=== PATIENT | female | born 1940 | race African-American/Black ===

== ENCOUNTER 2016-05-18 20:47 | Inpatient (IN) | payer MEDICARE ==
[~2016-05-18] VITALS: Ht 154.9 cm; Wt 69.9 kg
[~2016-05-18 20:47] MED LIST: AUGMENTIN 875-11 TAB PO; CARDURA2 MG PO; CARDURA4 MG PO; COZAAR100 MG PO; K-TAB10 MEQ PO; LASIX20 MG PO; LASIX40 MG PO; LEVAQUIN750 MG PO; MEDROL DOSE PACK4 MG PO; NIFEDICAL30 MG/BOTT PO; NORVASC10 MG PO; POTASSIUM99 M1 PO; PROZAC20 MG PO
[2016-05-18 21:22] LABS: BASOPHILS 0.2 % (0.0-2.0); EOSINOPHILS 0.8 % (0-7); HEMATOCRIT 36.9 % (36.0-48.0); HEMOGLOBIN 11.9 g/dL (12-16); IMMATURE GRANULOCYTES 0.3 % (0-5); MCH 28.2 pg (26.0-34.0); MCHC 32.2 g/dL (31.0-37.0); MCV 87.4 fL (80.0-100.0); MEAN PLATELET VOLUME 10.6 fL (7.4-10.4); NEUTROPHILS 72.7 % (40-80); PLATELET COUNT 244 10x3/uL (130-400); RBC 4.22 10x6/uL (4.00-5.40); RDW 15.7 % (11.5-14.5); WBC 6.1 10x3/uL (4.8-10.8)
[2016-05-18 21:41] LABS: ALKALINE PHOSPHATASE 47 U/L (46-116); ALT (SGPT) 25 U/L (10-68); BILIRUBIN - TOTAL 0.89 mg/dL (0.2-1.3); CALC OSMOLALITY 295 mosm/kg (275-300); CALCIUM 9.7 mg/dL (8.5-10.1); CARBON DIOXIDE 27.2 mmol/L (21.0-32.0); CHLORIDE - SERUM 99 mmol/L (98-107); CREATININE - SERUM 1.9 mg/dL (0.6-1.3); POTASSIUM - SERUM 3.6 mmol/L (3.5-5.1); PROTEIN - SERUM 7.6 g/dL (6.4-8.2); SODIUM 139 mmol/L (136-145); UREA NITROGEN 52 mg/dL (7-18); eGFR NON AFRICAN AMERICAN 27 mL/min (90-120)
[2016-05-18 21:42] LABS: GLUCOSE 168 mg/dL (74-106)
[2016-05-18 21:54] LABS: CKMB 1.6 U/L (0.0-3.6); CREATINE KINASE 46 UL (21-215); PRO BNP 22624 pg/mL (0-125); TROPONIN-I 0.051 ng/mL (0.000-0.060)
[2016-05-19 01:30] VITALS: BP 157/74; BMI 29.1
[2016-05-19 04:00] VITALS: BP 144/73
--- NOTE | 2016-05-19 08:25 | NUR ---
ASSESSMENT PER FLOW SHEET.PT HAS BEEN UP AT BEDSIDE EATING BREAKFAST.SHE IS WITHOUT DISTRESS.02 IS AT 3 LITERS PER NC.SCD'S ORDERED.CALL LIGHT IN REACH.
[2016-05-19 08:36] VITALS: BP 150/81
--- NOTE | 2016-05-19 10:35 | NUR ---
FAMILY AT BEDSIDE.PT REMAINS WITHOUT DISTRESS.
[2016-05-19 12:28] VITALS: BP 145/73
--- NOTE | 2016-05-19 13:36 | NUR ---
Patient Name: MYNOR AGUILAR Admission Status: ER Accout number: [id number] Admission Date: 05-18-2016 : 1940 Admission Diagnosis: Attending: JON Current LOS: 1 Anticipated DC Date: 05-22-2016 Planned Disposition: Home with Home Health Primary Insurance: MEDICARE A & B Discharge Planning Comments: CM MET WITH PATIENT REGARDING D/C NEEDS AND PLANS. PATIENT STATED SHE LIVES WITH HER SPOUSE (ANTHONY). PATIENT STATED HER GRANDSON (SANDY) WILL PICK HER UP AT DISCHARGE. PATIENT HAS NO STEPS OR STAIRS AT HER HOME. PATIENT IS INDEPENDENT WITH HER CARE AND HAS NO DME AT HOME. PATIENTS PCP IS DR. CATHERINE AND PHARMACY IS [facility] [address]. PATIENT IS CURRENT WITH [facility]. CM WILL CONTINUE TO FOLLOW PATIENT WITH D/C NEEDS AND PLANS. PCP DR. DORENE CARRENO ON [facility]- [phone] ANTHONY (SPOUSE) [phone] SANDY (GRANDSON) [phone] Director Of Corporate Sales: Guera Joyce Is the patient Alert and Oriented? Yes 0 * How many steps to enter\exit or inside your home? 0 0 * PCP DR. CATHERINE 0 * Pharmacy [facility] [address] 0 * Preadmission Environment Home with Family 0 * ADLs Independent 0 * Equipment None 0 * List name and contact numbers for known caregivers / representatives who currently or will assist patient after discharge: SANDY JACKSON) [phone] 0 * Community resources currently utilized Home Health 0 * Please name any agencies selected above. [facility] 0 * Additional services required to return to the preadmission environment? Yes 0 * Can the patient safely return to the preadmission environment? Yes 0 * Has this patient been hospitalized within the prior 30 days at any hospital? Yes 0 Grand Total: 0
[2016-05-19 15:14] VITALS: Ht 154.9 cm; Wt 69.9 kg
[2016-05-19 16:45] VITALS: BP 146/90
--- NOTE | 2016-05-19 18:20 | NUR ---
REMAINS WITHOUT NEEDS,WITHOUT DISTRESS.UNCHANGED FROM INITIAL SHIFT ASSESSMENT.CONT PLAN OF CARE
--- NOTE | 2016-05-19 19:52 | NUR ---
ROUNDING COMPLETED AND ASSESSMENT COMPLETED PT LAYING IN BED RECIVING BREATHING TREATMENT AT THIS TIME. RESPERATIONS EVEN AND UNLABORED ON 3LNC LUNG SOUNDS CLEAR BILATERAL LOBES X5 NO DISTRESS OBSERVED OR EXPRESSED AT THIS TIME. IVP SALINE LOCKED AND SWAB CAP INPLACE. BED LOW AND LOCKED CALL LIGHT IN REACH SRX2 BRANCH RETAIL EXECUTIVE AT BEDSIDE OBTANING VITALS WILL MONITOR
[2016-05-19 21:00] VITALS: BP 138/63
[2016-05-20 01:00] VITALS: BP 139/60
[2016-05-20 04:00] VITALS: BP 136/66
--- NOTE | 2016-05-20 07:30 | NUR ---
ASSESSMENT PER FLOW SHEET.PT WITHOUT DISTRESS.SHE HAS BEEN UP IN ROOM THIS AM.DENIES NEEDS.INSTRUCTED CALL LIGHT USE.MONITOR
[2016-05-20 08:00] VITALS: BP 147/72
--- NOTE | 2016-05-20 08:42 | HP ---
PATIENT: MYNOR AGUILAR MEDICAL RECORD: [id number] ACCOUNT: [id number] LOCATION:D.MS Alvarado2 : 42 ADMISSION DATE: 05/18/16 HISTORY AND PHYSICAL EXAMINATION DATE OF ADMISSION: 05/18/2016 CHIEF COMPLAINT: Increased shortness of breath. HISTORY OF PRESENT ILLNESS: A 75-year-old -Bangladeshi female with a history of nonischemic cardiomyopathy who has been having increased shortness of breath over the last few days, but it just really got worse on the night of admission. In the ER, she had increased respiratory rates. Her ABG showed a pH of 7.4, pCO2 of 39, pO2 of 58. The patient thought it was a flareup of her pneumonia. Her proBNP is 22,624. Cardiac enzymes are negative and chest x-ray done showed cardiomegaly with some atelectasis in the lingula. No pneumonia. She is admitted for CHF exacerbation with cardiomyopathy. PAST MEDICAL AND SURGICAL HISTORY: Cardiomyopathy, has been seen by Dr. Moreno here, but apparently going to [facility] right now. She also has a history of hypertension, chronic kidney disease. She sees Dr. Hunter for that. She has a history of asthma and has been seen by Dr. Ramirez. She has had some depression in the past. She has had a bilateral tubal ligation in 1972, cholecystectomy in 1978, hysterectomy in 1993, colostomy in 2005 with takedown later that year, hernia repair, [facility] in June 2007 and another hernia repair in April 2008 at [facility]. She has had a parathyroidectomy on 04/04/[address] Sutherland for hyperparathyroidism. She was admitted almost a month ago with pneumonia. ALLERGIES: SHE IS INTOLERANT OF ALL BETA BLOCKERS, ALSO HYDRALAZINE, FLEXERIL AND GABAPENTIN. HOME MEDICATIONS: Losartan 100 mg once a day, nifedipine 30 mg once a day, Lasix 40 mg twice a day, potassium 10 mEq twice a day. SOCIAL HISTORY: She lives with her . She is a former smoker. Former alcohol user, currently none. She is retired from work. FAMILY HISTORY: Both parents with congestive heart failure. REVIEW OF SYSTEMS: GENERAL: No major weight changes. HEENT: No sinus or allergy problems. RESPIRATORY: Followed by Dr. Ramirez for asthma. CARDIAC: I believe followed at [facility] now. She has had a heart cath that showed no ischemia, but ejection fraction has been as low as 15%. She was admitted to [facility] for CHF exacerbation in March 2016. Her ejection fraction then was approximately 20%. GASTROINTESTINAL: Occasional reflux. GENITOURINARY: No significant problems there. MUSCULOSKELETAL: No significant problems. NEUROLOGIC: No seizures, no migraine headaches. PSYCHIATRIC: No depression or anxiety at this time. PHYSICAL EXAMINATION: GENERAL: She is awake, alert and feels better. She was given IV Lasix in the HISTORY AND PHYSICAL [id number] MYNOR AGUILAR Emergency Room. VITAL SIGNS: Temperature 97.3, pulse 88, respirations 23, blood pressure 150/81. HEENT: Grossly within normal limits. NECK: Supple. No bruits. HEART: Regular rate and rhythm without murmur. LUNGS: A few crackles in the bases bilaterally. ABDOMEN: Soft, nontender. EXTREMITIES: No edema. LABORATORY DATA: ABG showed pH 7.42, pCO2 of 39, pO2 of 58, proBNP elevated at 22,624, troponin 0.051. Sodium 139, potassium 3.6, chloride 99, CO2 of 27.2, BUN 52, creatinine 1.9. LFTs were all normal. CBC with a white count of 6100, hemoglobin 11.9, hematocrit 36.9. Chest x-ray showing cardiomegaly, increased congestive heart failure presentation. ASSESSMENT: 1. Congestive heart failure exacerbation in a patient with known cardiomyopathy. 2. Hypertension. 3. Chronic kidney disease about her baseline. PLAN: I spoke with the patient and her 2 sons at bedside. She states she has been drinking a lot more water recently, but has not had much increase in urinary output. Discussed with her about intake versus output and she states she has a better understanding of this now. We will diurese and hopefully get her out soon. TRANSINT:[id number] Voice Confirmation ID: [id number] DOCUMENT ID: [id number] ANTHONY CATHERINE MD at 0842 CC: [id number] DICTATION DATE: 05/19/16 1330 TELECOMMUNICATIONS FIELD TECHNICIAN: 05/19/16 1406 ADM IN [id number] [place] [address]
--- NOTE | 2016-05-20 08:57 | NUR ---
CM REASSESSMENT NOTE: PATIENT IS DISCHARGING HOME TODAY BY PRIVATE CAR. PATIENT IS CURRENT WITH [facility].
--- NOTE | 2016-05-20 11:04 | NUR ---
DISCHARGE INSTRUCTIONS,STATES UNDERSTANDING.IV DCD CATH INTACT.OFF 02,MONITOR SATS
--- NOTE | 2016-05-20 13:07 | NUR ---
LEFT FLOOR WITH FAMILY FOR TRANSPORT HOME
--- NOTE | 2016-05-22 14:44 | EC ---
PATIENT:MYNOR AGUILAR DATE OF SERVICE: 05/18/16 SEX: F MEDICAL RECORD: [id number] DATE OF : [birth year] LOCATION:Taj[facility] Al[facility]ado AGE OF PATIENT: 75 ADMISSION DATE: 05/18/16 REFERRING PHYSICIAN: INTERPRETING PHYSICIAN: MARIELA BOTELLO MD ECHOCARDIOGRAM REPORT ECHO CHARGES 4 ECHO COMPLETE CLINICAL DIAGNOSIS: CHF ECHOCARDIOGRAPHIC MEASUREMENTS (adult normal given) AC root (d.<3.7cm) 2.8 LV Septum d (<1.2 cm> 1.5 Valve Excursion 1.0 LV Septum (systole) 1.6 Left Atria (s.<4.0cm> 5.8 LVPW d(<1.2cm) 1.2 RV (d.<2.3cm) 2.7 LVPW (sytole) 1.7 LV diastole(<5.6CM) 6.5 MV E-F(>70mm/sec) LV systole 5.0 LVOT Diameter 1.8 MV exc.(>10mm) Est.ejection fraction (50-75%) Pericardial Effusion Y DOPPLER: LVIT A E 195.0 LA RVSP 53.0 LVOT 82.0 AOP1/2T Asc. Ao 152 RVOT 46.0 RA PA 98.0 AV Gradient Peak 9.2 AV Mean 4.6 AV Area 1.2 MV Gradient Peak 15.0 MV Mean 4.6 MV Area COMMENTS: Cardiology Tech: Gaby FRITZOE Pleating Supervisor:Allyson Ashraf TAPE# PACS DATE OF SERVICE: 05/19/2016 Adequate 2D echo, color flow and spectral Doppler, M-mode. LVH is present. LV internal dimensions are dilated. LV is globally hypokinetic with reduced EF. Estimated EF of 20% to 25%. Aortic valve sclerosis without stenosis on Doppler interrogation. The left atrium is dilated at 4.7 cm. Mitral valve shows no prolapse. Moderate MR. Right-sided chamber is grossly normal. Moderate TR. TRANSINT:[id number] Voice Confirmation ID: [id number] DOCUMENT ID: [id number] 05/22/2016 Edited to correct date of service, dmm. ECHOCARDIOGRAM REPORT [id number] MYNOR AGUILAR MARIELA BOTELLO MD at 2767 CC: [id number] DICTATION DATE: 05/20/16 1527 BICYCLE MESSENGER: 05/21/16 0031 DIS IN 05/20/16 [facility] [address] [id number]
== END 2016-05-20 13:08 | disposition home health service (06) | DRG 291 ==
LOC: D.ER 20:47 → D.MS 22:23
PROVIDERS: Emergency Medicine; ADMIT Family Medicine
DX: I13.0 Hypertensive heart and chronic kidney disease with heart failure and stage 1 through stage 4 chronic kidney disease, or unspecified chronic kidney disease (principal); I50.21 Acute systolic (congestive) heart failure; N18.9 Chronic kidney disease, unspecified; I42.0 Dilated cardiomyopathy

== ENCOUNTER 2016-05-25 18:31 | Inpatient (IN) | payer MEDICARE ==
[~2016-05-25] VITALS: Ht 154.9 cm; Wt 68.9 kg
[2016-05-25 19:41] LABS: BASOPHILS 0.2 % (0.0-2.0); EOSINOPHILS 1.8 % (0-7); HEMATOCRIT 37.7 % (36.0-48.0); HEMOGLOBIN 11.6 g/dL (12-16); LYMPHOCYTES 16.2 % (15-50); MCH 27.9 pg (26.0-34.0); MCHC 30.8 g/dL (31.0-37.0); MCV 90.6 fL (80.0-100.0); MEAN PLATELET VOLUME 10.5 fL (7.4-10.4); MONOCYTES 5.3 % (2-11); NEUTROPHILS 76.5 % (40-80); RBC 4.16 10x6/uL (4.00-5.40); WBC 5.6 10x3/uL (4.8-10.8)
[2016-05-25 19:49] LABS: PLATELET COUNT 192 10x3/uL (130-400)
[2016-05-25 20:10] LABS: ALBUMIN 2.6 g/dL (3.4-5.0); BILIRUBIN - TOTAL 0.74 mg/dL (0.2-1.3); CARBON DIOXIDE 31.1 mmol/L (21.0-32.0); PROTEIN - SERUM 4.2 g/dL (6.4-8.2)
[2016-05-25 20:21] LABS: ANION GAP 15.7 mmol/L (8-16); CALCIUM 9.5 mg/dL (8.5-10.1); CREATININE - SERUM 1.8 mg/dL (0.6-1.3); POTASSIUM - SERUM 4.8 mmol/L (3.5-5.1)
--- NOTE | 2016-05-25 23:50 | NUR ---
RECIEVED PT FROM ER, ASSESSMENT, HISTORY AND MED REVIEW COMPLETED, NO ACUTE DISTRESS NOTED, FAMILY IN ROOM, SR'S UP X2, CL IN REACH
[2016-05-26 00:47] VITALS: BP 152/77; BMI 28.7
--- NOTE | 2016-05-26 08:00 | NUR ---
PT AWAKE AND ALERT SITTING UP ON SIDE OF BED NO DISTRESS NOTED VOICES ALL NEEDS TO STAFF PIV NOTED SALINE LOCKED TO RIGHT AC SIDE RAILS UP X 2 CALL ILT ABDIRIZAK
--- NOTE | 2016-05-26 09:00 | NUR ---
LYING IN BED,WITHOUT DISTRESS.DOOR OPEN
[2016-05-26 13:07] VITALS: Ht 154.9 cm; Wt 68.9 kg
--- NOTE | 2016-05-26 14:00 | NUR ---
PT FAMILY AT SIDE NO DISTRESS NOTED AMBULATIN GIN ROOM WITH NO SHORTNESS OF BREATH NOTED WILL MONITOR
--- NOTE | 2016-05-26 18:21 | NUR ---
AMBULATING IN HALLWAY NO DISTRESS NTOED NO SHORTNESS OF BREATH NOTED. WILL CONTINUE TO MONITOR.
[2016-05-26 19:00] VITALS: BP 139/65
--- NOTE | 2016-05-26 20:35 | NUR ---
RECIEVED PT SITTING UP IN BED WATCHING TV, NC IN PLACE, ASSESSMENT COMPLETED, NO ACUTE DISTRESS NOTED, DENIES PAIN OR NEEDS AT THIS TIME, SR'S UP X1, CL IN REACH, WILL MONITOR
--- NOTE | 2016-05-26 23:21 | NUR ---
LASIX GIVEN PER MAR, ROSA ISELA WELL, DENIES PAIN OR NEEDS, NC IN PLACE, CL IN REACH
[2016-05-27] VITALS: BP 138/60
--- NOTE | 2016-05-27 01:03 | NUR ---
RESTING WITH EYES CLOSED, RESP WITH EASE, NO DISTRESS NOTED, CL IN REACH, WILL CONTINUE TO MONITOR
[2016-05-27 04:00] VITALS: BP 125/65
[2016-05-27 05:44] LABS: BASOPHILS 0.2 % (0.0-2.0); EOSINOPHILS 1.4 % (0-7); HEMATOCRIT 32.7 % (36.0-48.0); HEMOGLOBIN 10.1 g/dL (12-16); LYMPHOCYTES 17.1 % (15-50); MCH 27.6 pg (26.0-34.0); MCHC 30.9 g/dL (31.0-37.0); MCV 89.3 fL (80.0-100.0); MEAN PLATELET VOLUME 10.4 fL (7.4-10.4); MONOCYTES 4.6 % (2-11); NEUTROPHILS 76.7 % (40-80); PLATELET COUNT 164 10x3/uL (130-400); RBC 3.66 10x6/uL (4.00-5.40); RDW 15.9 % (11.5-14.5); WBC 4.2 10x3/uL (4.8-10.8)
[2016-05-27 05:55] LABS: ANION GAP 12.8 mmol/L (8-16); CALCIUM 8.8 mg/dL (8.5-10.1); CARBON DIOXIDE 31.6 mmol/L (21.0-32.0); CREATININE - SERUM 1.7 mg/dL (0.6-1.3)
[2016-05-27 05:57] LABS: POTASSIUM - SERUM 3.4 mmol/L (3.5-5.1)
--- NOTE | 2016-05-27 07:00 | NUR ---
REPORT RECIEVED ASSUMED CARE. PATIENT IN BED WITH IV INTACT. NO COMPLAINTS. CALL LIGHT WITHIN REACH.
--- NOTE | 2016-05-27 07:54 | HP ---
PATIENT: MYNOR AGUILAR MEDICAL RECORD: [id number] ACCOUNT: [id number] LOCATION:D.MS Gardiner : 42 ADMISSION DATE: 05/26/16 HISTORY AND PHYSICAL EXAMINATION DATE OF ADMISSION: 05/26/2016. CHIEF COMPLAINT: Increased shortness of breath. HISTORY OF PRESENT ILLNESS: A 75-year-old -Estonian female with a history of nonischemic cardiomyopathy, has been having worsening shortness of breath over the last few days, it got worse, so she came to the ER. Her proBNP is actually much improved from a week ago when it was 22,624. Cardiac enzymes are negative. Chest x-ray shows cardiomegaly with her symptoms, she is admitted for acute systolic on chronic congestive heart failure. PAST MEDICAL AND SURGICAL HISTORY: Nonischemic cardiomyopathy, has been seen by Dr. Moreno in the past that has been going to [facility] more recently. She also has hypertension, chronic kidney disease, see Dr. Hunter for her chronic kidney disease, history of asthma, followed by Dr. Ramirez. She has had a bilateral tubal ligation in 1972. Cholecystectomy in 1978, hysterectomy in 1993, colostomy in 2005 with takedown later that year, hernia repair in June 2007 and another hernia repair in April 2008 ____ at [facility], she had a parathyroidectomy on 04/04/[address] Sutherland for hyperparathyroidism. She has been admitted here over the last few months with pneumonia and CHF exacerbation. HOME MEDICATIONS: Losartan 100 mg once a day, nifedipine 30 mg once a day, Lasix 40 mg twice a day. She has been on potassium 10 mEq twice a day. ALLERGIES: SHE IS INTOLERANT OF ALL BETA BLOCKERS. SOCIAL HISTORY: Lives with her , former smoker, former alcohol user. She is retired. FAMILY HISTORY: Both parents with congestive heart failure. REVIEW OF SYSTEMS: GENERAL: No major weight changes. HEENT: No sinus or allergy problems. RESPIRATORY: Followed by with Dr. Ramirez for asthma. CARDIAC: Has been followed by Dr. Moreno as well as [facility]. She had a heart cath that showed no ischemia, but ejection fraction has been as low as 15%. Her ejection fraction was as high as 25% last year. GASTROINTESTINAL: Occasional reflux. GENITOURINARY: No significant problems there. MUSCULOSKELETAL: No significant problems. NEUROLOGIC: No seizures, no migraine headaches. PSYCHIATRIC: No depression or melancholia. PHYSICAL EXAMINATION: GENERAL: Awake, alert, sitting on side of the bed. She is feeling better after she was given IV Lasix in the Emergency Department. VITAL SIGNS: She is afebrile, heart rate 84, respirations 20, blood pressure is 150/76. HEENT: Grossly within normal limits. HISTORY AND PHYSICAL [id number] PEPPERS,MYNOR ELANE NECK: Supple. No bruits. HEART: Regular rate and rhythm without murmur. LUNGS: Few crackles in the bases bilaterally. ABDOMEN: Soft, nontender. EXTREMITIES: No edema. LABORATORY DATA: She had CBC with a white count of 5600, hemoglobin 11.6, hematocrit 37.7, platelets were normal. Sodium 146, potassium 4.8, chloride 104, CO2 of 31, BUN 46, creatinine 1.8, glucose 123, calcium 9.5. Liver functions are all normal. ProBNP 3541. CK is normal. Albumin 2.6. Chest x-ray showed improving changes of congestive heart failure with mild changes in the left lung base and a small left pleural effusion. This is compared to the previous x-ray on 05/18/2016. ASSESSMENT: 1. Acute systolic congestive heart failure. 2. Nonischemic cardiomyopathy. 3. Hypertension. 4. Chronic kidney disease. 5. Intolerant of beta blockers. PLAN: Diuresed, I discussed who she is going to use for cardiology. It is okay for her to use [facility] if she is going to go to [facility], but when she feels back she wants to come here where she lives, she needs to make a decision who she wants to take care of her heart. Other tests and procedures as warranted. TRANSINT:[id number] Voice Confirmation ID: [id number] DOCUMENT ID: [id number] ANTHONY CATHERINE MD at 0754 CC: [id number] DICTATION DATE: 05/27/1640 ACTIVITIES LEADER: 05/27/16 0149 ADM IN [id number] [place] [address]
[2016-05-27 08:28] VITALS: BP 149/75
[2016-05-27 11:49] VITALS: BP 152/72
--- NOTE | 2016-05-27 15:14 | NUR ---
Patient Name: MYNOR AGUILAR Admission Status: ER Accout number: [id number] Admission Date: 05-26-2016 : 1940 Admission Diagnosis: Attending: JON Current LOS: 1 Anticipated DC Date: 05-30-2016 Planned Disposition: Home with Home Health Primary Insurance: MEDICARE A & B Discharge Planning Comments: CM MET WITH PATIENT REGARDING D/C NEEDS AND PLANS. PATIENT STATED SHE LIVES WITH HER SPOUSE (ANTHONY) AND THEY HAVE ONLY 1 STEP W/O RAIL TO ENTER HOME AND NO STAIRS INSIDE. PATIENT STATED SHE IS INDEPENDENT WITH HER CARE AND HAS NO DME AT HOME. PATIENTS PCP IS DR. CATHERINE AND PHARMACY IS [facility] [address]. PATIENT IS CURRENT WITH [facility]. CM WILL CONTINUE TO FOLLOW PATIENT WITH D/C NEEDS AND PLANS. PCP DR. CATHERINE PHARMACY [facility] ON [address]- [phone] ANTHONY (SPOUSE) [phone] SANDY CHANEL (GRANDSON) [phone] [facility] [phone] Refinery Process Engineer: Guera Joyce Is the patient Alert and Oriented? Yes 0 * How many steps to enter\exit or inside your home? 1 W/RAIL 0 * PCP DR. CATHERINE 0 * Pharmacy [facility] [address] 0 * Preadmission Environment Home with Family 0 * ADLs Independent 0 * Equipment None 0 * List name and contact numbers for known caregivers / representatives who currently or will assist patient after discharge: ANTHONY (SPOUSE) [phone] SANDY CHANEL (GRANDSON) [phone] 0 * Community resources currently utilized Home Health 0 * Please name any agencies selected above. CURRENT WITH [facility] 0 * Additional services required to return to the preadmission environment? Yes 0 * Can the patient safely return to the preadmission environment? Yes 0 * Has this patient been hospitalized within the prior 30 days at any hospital? Yes 0 Grand Total: 0
[2016-05-27 15:45] VITALS: BP 142/64
--- NOTE | 2016-05-27 18:55 | NUR ---
PATIENT IN BED WITH NO COMPLAINTS. IV INTACT. CALL LIGHT WITHIN REACH.
[2016-05-27 19:00] VITALS: BP 137/66
--- NOTE | 2016-05-27 21:30 | NUR ---
ASSESSMENT COMPLETED, NC IN PLACE, DENIES NEEDS, CL IN REACH, WILL MONITOR
--- NOTE | 2016-05-27 22:51 | NUR ---
LASIX GIVEN PER MAR, ROSA ISELA WELL, DENIES NEEDS, CL IN REACH
--- NOTE | 2016-05-28 01:15 | NUR ---
RESTING WITH EYES CLOSED, NC IN PLACE, NO DISTRESS NOTED, CL IN REACH
[2016-05-28 04:00] VITALS: BP 125/64
[2016-05-28 06:18] LABS: ANION GAP 11.5 mmol/L (8-16); CALCIUM 8.7 mg/dL (8.5-10.1); CARBON DIOXIDE 32.1 mmol/L (21.0-32.0); CREATININE - SERUM 1.5 mg/dL (0.6-1.3); POTASSIUM - SERUM 3.6 mmol/L (3.5-5.1)
--- NOTE | 2016-05-28 07:00 | NUR ---
REPORT RECIEVED ASSUMED CARE. PATIENT IN BED WITH IV INTACT. NO COMPLAINTS. CALL LIGHT WITHIN REACH.
[2016-05-28 08:17] VITALS: BP 139/86
--- NOTE | 2016-05-28 10:50 | NUR ---
PATIENT UP AMBULATING AT THIS TIME WITH NURSE. O2 SATS 89 ON ROOM AIR BEFORE WALK. 86 DURING WALK. 93 AFTER WALK ON 1 LITER NC. NOTIFIED CASE MANAGEMENT FOR NEED FOR O2 ON DC. VERBALIZED UNDERSTANDING. NO COMPLAINTS AT THIS TIME. IV INTACT. FAMILY AT BEDSIDE. CALL LIGHT WITHIN REACH.
--- NOTE | 2016-05-28 12:11 | NUR ---
NUTRITION MONITORING & EVAL CHART REVIEWED, PT VISIT. PT TOLERATING AHA DIET. 100% INTAKE MEALS. WILL CONTINUE TO PROVIDE DIET, MONITOR PT PROGRESS. RD FOLLOWING
--- NOTE | 2016-05-28 13:45 | NUR ---
PATIENT SITTING UP IN BED WITH NO COMPLAINTS AT THIS TIME. IV INTACT. NO COMPLAINTS. CALL LIGHT WITHIN REACH.
[2016-05-28 13:55] VITALS: BP 132/69
[2016-05-28 16:05] VITALS: BP 138/81
--- NOTE | 2016-05-28 18:01 | NUR ---
PATIENT SITTING UP IN BED WITH IV INTACT. NO COMPLAINTS. FAMILY AT BEDSIDE. CALL LIGHT WITHIN REACH.
[2016-05-28 21:11] VITALS: BP 147/73
[2016-05-29 04:54] VITALS: BP 136/87
--- NOTE | 2016-05-29 07:20 | NUR ---
WALKING ROUNDS,WITHOUT DISTRESS.DENIES NEEDS.CALL LIGHT IN REACH
[2016-05-29] MEDS ORDERED: FUROSEMIDE40 MG PO (07:55)
--- NOTE | 2016-05-29 08:24 | NUR ---
ASSESSMENT PER FLOW SHEET.PT WITHOUT DISTRESS.UP AT BEDSIDE WAITING ON BREAKFAST.CALL LIGHT IN REACH
--- NOTE | 2016-05-29 09:53 | NUR ---
CM REASSESSMENT NOTE: PATIENT WILL DISCHARGE HOME TODAY WITH [facility] (CURRENT WITH). [facility] WILL SUPPLY HOME O2. PORTABLE WILL BE DELIVERED TO ROOM FOR DISCHARGE.
[2016-05-29 10:05] VITALS: BP 131/74
[2016-05-29 13:08] VITALS: BP 135/79
--- NOTE | 2016-05-29 13:17 | NUR ---
IV DCD WITH CATH INTACT.DISCHARGE INSTRUCTIONS,STATES UNDERSTANDING.WAITING ON RIDE FOR TRANSPORT HOME
--- NOTE | 2016-05-29 13:30 | NUR ---
LEFT FLOOR VIA WHEELCHAIR
== END 2016-05-29 13:30 | disposition home health service (06) | DRG 291 ==
LOC: D.ER 18:31 → OBSVTIME 22:43 → D.MS 22:43
PROVIDERS: Family Medicine; ADMIT Family Medicine
DX: I13.0 Hypertensive heart and chronic kidney disease with heart failure and stage 1 through stage 4 chronic kidney disease, or unspecified chronic kidney disease (principal); I50.23 Acute on chronic systolic (congestive) heart failure; I42.0 Dilated cardiomyopathy; N18.3 Chronic kidney disease, stage 3 (moderate); J45.909 Unspecified asthma, uncomplicated

== ENCOUNTER → 2016-10-03 12:23 | Outpatient (CLI) | payer MEDICARE ==
[2016-05-26 13:07] VITALS: BMI 28.7
[~2016-10-03 12:23] MED LIST changes: +FUROSEMIDE40 MG PO
== END | disposition home or self-care (01) ==
LOC: D.RT 12:23
DX: J45.909 Unspecified asthma, uncomplicated (principal)

== ENCOUNTER 2016-10-08 06:47 | Inpatient (IN) | payer MEDICARE ==
[~2016-10-08] VITALS: Ht 154.9 cm; Wt 94.7 kg
--- NOTE | ~2016-10-08 | EC ---
PATIENT:MYNOR AGUILAR DATE OF SERVICE: 10/08/16 SEX: F MEDICAL RECORD: [id number] DATE OF : [birth year] LOCATION:D. D.211 AGE OF PATIENT: 76 ADMISSION DATE: 10/08/16 REFERRING PHYSICIAN: INTERPRETING PHYSICIAN: SUZANNE MORENO M.D. ECHOCARDIOGRAM REPORT ECHO CHARGES 4 ECHO COMPLETE CLINICAL DIAGNOSIS: CHF / ASSESS FOR PERICARDIAL EFFUSION ECHOCARDIOGRAPHIC MEASUREMENTS (adult normal given) AC root (d.<3.7cm) 3.3 LV Septum d (<1.2 cm> 1.3 Valve Excursion 1.8 LV Septum (systole) 1.4 Left Atria (s.<4.0cm> 4.3 LVPW d(<1.2cm) 1.6 RV (d.<2.3cm) 4.9 LVPW (sytole) 1.7 LV diastole(<5.6CM) 6.5 MV E-F(>70mm/sec) LV systole 4.6 LVOT Diameter 1.2 MV exc.(>10mm) 1.5 Est.ejection fraction (50-75%) Pericardial Effusion Y DOPPLER: LVIT A 154 E LA RVSP 65 LVOT 122 AOP1/2T Asc. Ao 162 RVOT 84 RA PA 124 AV Gradient Peak 10.50 AV Mean 5.08 AV Area 1.3 MV Gradient Peak 14.57 MV Mean 3.71 MV Area COMMENTS: Pest Control Pilot: Arpit SOUSA Off Track Betting Manager:Arpit Moreno TAPE# PACS DATE OF SERVICE: 10/10/2016 REFERRING PHYSICIAN: Dr. Trent. INDICATION: Congestive heart failure. DESCRIPTION: Left ventricle is moderately dilated. There is severe left ventricular dysfunction noted. Estimated ejection fraction is in the order of 25%. Mitral valve is structurally normal. There is moderate regurgitation seen. Left atrium is mildly dilated. The aortic valve is trileaflet. I do not ECHOCARDIOGRAM REPORT [id number] MYNOR AGUILAR see stenosis or regurgitation. Right ventricle is moderately dilated. Tricuspid valve is structurally normal. There is moderate regurgitation noted. Right atrium is mildly dilated. Right ventricular systolic pressure is elevated at 65 mmHg. There is a small pericardial effusion noted. It is not circumferential. There is no evidence of chamber collapse. There is no evidence of any tamponade. IMPRESSION: 1. Severe left ventricular dysfunction with ejection fraction 25%. 2. Moderate mitral regurgitation. 3. Moderate tricuspid regurgitation with elevated pulmonary pressures. TRANSINT:[id number] Voice Confirmation ID: [id number] DOCUMENT ID: [id number] SUZANNE MORENO M.D. CC: [id number] DICTATION DATE: 10/10/16 1240 VERIFICATION CLERK: 10/11/16 0019 ADM IN [facility] [address] [id number]
[2016-10-08 07:10] LABS: BASOPHILS 0.3 % (0-2); EOSINOPHILS 1.5 % (0-7); HEMATOCRIT 39.6 % (36.0-48.0); HEMOGLOBIN 12.7 g/dL (12-16); IMMATURE GRANULOCYTES 0.2 % (0-5); LYMPHOCYTES 7.2 % (15-50); MCH 28.2 pg (26.0-34.0); MCHC 32.1 g/dL (31.0-37.0); MCV 87.8 fL (80.0-100.0); MEAN PLATELET VOLUME 10.5 fL (7.4-10.4); NEUTROPHILS 85.8 % (40-80); RBC 4.51 10x6/uL (4.00-5.40); RDW 16.8 % (11.5-14.5); WBC 9.9 10x3/uL (4.8-10.8)
[2016-10-08 07:17] LABS: PLATELET COUNT 230 10x3/uL (130-400)
[2016-10-08 07:25] LABS: ANION GAP 15.9 mmol/L (8-16); BILIRUBIN - TOTAL 1.67 mg/dL (0.2-1.3); CALCIUM 9.5 mg/dL (8.5-10.1); CARBON DIOXIDE 26.2 mmol/L (21.0-32.0); CREATININE - SERUM 1.9 mg/dL (0.6-1.3); POTASSIUM - SERUM 3.1 mmol/L (3.5-5.1); PROTEIN - SERUM 7.6 g/dL (6.4-8.2)
[2016-10-08] MEDS ORDERED: NIFEDIPINE ER60 MG PO (12:03)
[2016-10-08 14:14] VITALS: BP 148/84
[2016-10-08 14:18] VITALS: BP 148/84
--- NOTE | 2016-10-08 14:44 | NUR ---
Patient Name: MYNOR AGUILAR Admission Status: ER Accout number: [id number] Admission Date: 10-08-2016 : 1940 Admission Diagnosis: Attending: JON Current LOS: 1 Anticipated DC Date: 10-10-2016 Planned Disposition: Home Primary Insurance: MEDICARE A & B Discharge Planning Comments: CM MET WITH PATIENT AND DAUGHTER (JORJE) REGARDING D/C NEEDS AND PLANS. PATIENT STATED SHE LIVES WITH HER (ANTHONY). DAUGHTER STATED SHE WILL DRIVE PATIENT HOME AT DISCHARGE AND IT IS SAFE AND THERE IS 1 STEP W/RAILS TO ENTER HOME AND NO STAIRS INSIDE. PATIENT STATED SHE IS INDEPENDENT WITH HER CARE AND HAS A WALKER, WHEELCHAIR, SHOWER CHAIR, CANE, PORTABLE 02, AND OXYGEN (2L) AT HOME. PATIENTS PCP IS DR. CATHERINE AND PHARMACY IS [facility]. PATIENT HAD [facility] FEW MONTHS BACK AND WOULD USE THEM IF NEEDED. PATIENT STATED SHE DID NOT WANT HOME HEALTH UNLESS DOCTOR SAID. CM WILL CONTINUE TO FOLLOW PATIENT WITH D/C NEEDS AND PLANS. PCP DR. DORENE CARRENO [facility]- [phone] ANTHONY (SPOUSE) [phone] JORJE (DAUGHTER) [phone] Fruit Tester: Guera Joyce Is the patient Alert and Oriented? Yes 0 * How many steps to enter\exit or inside your home? 1 /RAIL 0 * PCP DR. CATHERINE 0 * Pharmacy [facility] 0 * Preadmission Environment Home with Family 0 * ADLs Independent 0 * Equipment Cane Oxygen Shower Chair Walker Wheelchair 0 * Other Equipment PORTABLE O2 PATIENT IS ON 2L 0 * List name and contact numbers for known caregivers / representatives who currently or will assist patient after discharge: ANTHONY () [phone] JORJE (DAUGHTER) [phone] 0 * Community resources currently utilized None 0 * Additional services required to return to the preadmission environment? Yes 0 * Can the patient safely return to the preadmission environment? Yes 0 * Has this patient been hospitalized within the prior 30 days at any hospital? No 0 Grand Total: 0
--- NOTE | 2016-10-08 15:16 | NUR ---
REPORT CALLED TO BHUPENDRA SENIOR
[2016-10-08 15:59] VITALS: BP 154/80
[2016-10-08 17:32] LABS: APPEARANCE CLEAR (CLEAR); BILIRUBIN NEGATIVE (NEGATIVE); COLOR YELLOW (YELLOW); GLUCOSE NEGATIVE (NEGATIVE); KETONE NEGATIVE (NEGATIVE); LEUKOCYTE ESTERASE NEGATIVE (NEGATIVE); NITRITE NEGATIVE (NEGATIVE); PROTEIN TRACE mg/dL (NEGATIVE); UROBILINOGEN NORMAL (NORMAL)
[2016-10-08 20:44] VITALS: BP 134/84
--- NOTE | 2016-10-09 00:15 | NUR ---
PT RESTING WELL, NO CHANGES NOTED IN ASSESSMENT. NO NEEDS VOICED. CALL LIGHT WITHIN REACH. WILL CONT TO MONITOR.
[2016-10-09 03:47] VITALS: BP 148/74
[2016-10-09 05:39] LABS: BASOPHILS 0.5 % (0-2); EOSINOPHILS 5.7 % (0-7); HEMATOCRIT 36.4 % (36.0-48.0); HEMOGLOBIN 11.5 g/dL (12-16); LYMPHOCYTES 18.9 % (15-50); MCH 27.8 pg (26.0-34.0); MCHC 31.6 g/dL (31.0-37.0); MCV 88.1 fL (80.0-100.0); MEAN PLATELET VOLUME 10.7 fL (7.4-10.4); MONOCYTES 5.5 % (2-11); NEUTROPHILS 69.4 % (40-80); PLATELET COUNT 186 10x3/uL (130-400); RBC 4.13 10x6/uL (4.00-5.40); RDW 16.9 % (11.5-14.5)
[2016-10-09 06:12] LABS: ANION GAP 12.7 mmol/L (8-16); CALCIUM 8.4 mg/dL (8.5-10.1); CARBON DIOXIDE 28.7 mmol/L (21.0-32.0); CREATININE - SERUM 1.7 mg/dL (0.6-1.3); POTASSIUM - SERUM 3.4 mmol/L (3.5-5.1)
[2016-10-09 06:17] LABS: WBC 4.2 10x3/uL (4.8-10.8)
[2016-10-09 08:41] VITALS: BP 174/84
--- NOTE | 2016-10-09 11:14 | HP ---
PATIENT: MYNOR AGUILAR MEDICAL RECORD: [id number] ACCOUNT: [id number] LOCATION:[facility] D.2119 : 42 ADMISSION DATE: 10/08/16 HISTORY AND PHYSICAL EXAMINATION DATE OF ADMISSION: 10/08/2016 CHIEF COMPLAINT: Shortness of breath and lower extremity swelling. HISTORY OF PRESENT ILLNESS: This is a 76-year-old -[place] female who has had increased lower extremity edema for the last couple of days ago and was afraid that this was her heart, she did not think it was. She was worried about gout, but she did not have any symptoms of gout. I have told her that as an outpatient, all we could do is increase her Bumex and consider some compression stockings for her edema, but she got worse and came in to the hospital today. Her potassium was little low at 3.1. Her proBNP was 22,935. Chest x-ray showed an enlarged heart, increased pulmonary vasculature, all symptoms suggesting congestive heart failure. She is now admitted and cardiology has seen her already. PAST MEDICAL AND SURGICAL HISTORY: She has hypertension, history of asthma, CHF with several admissions in the last 12 months, hyperparathyroidism; chronic kidney disease, followed by Dr. Hunter; nonischemic cardiomyopathy, followed by Dr. Moreno. PAST SURGICAL HISTORY: She has had tubal ligation, cholecystectomy, hysterectomy, partial colectomy, abdominal hernia, parathyroidectomy. HOME MEDICATIONS: Include vitamin D 2000 units daily, losartan 100 mg daily, nifedipine 60 mg daily, I believe furosemide 2 tabs in the morning and 1 in the afternoon and potassium chloride 10 mEq once a day. ALLERGIES: AMOXICILLIN, APRESOLINE, CARVEDILOL, FLEXERIL, GABAPENTIN, ISOSORBIDE AND SHE CANNOT TAKE ANY BETA-KAREN, THEY HAVE ALL BEEN TRIED. HABITS: She is a former smoker. No history of alcohol or drug use. FAMILY HISTORY: Both parents with congestive heart failure. REVIEW OF SYSTEMS: GENERAL: She has gained some weight due to her lower extremity edema. HEENT: No particular sinus or allergy problems. RESPIRATORY: She has a history of asthma, but it is well controlled. She is on no medicines for that. CARDIAC: See above history with her nonischemic cardiomyopathy, last ejection fraction was around 20% per Dr. Moreno. GASTROINTESTINAL: She has occasional reflux. GENITOURINARY: No significant problems there. MUSCULOSKELETAL: No significant problems there. NEUROLOGIC: No seizures or migraine headaches. PSYCHIATRIC: Denies depression or melancholia. PHYSICAL EXAMINATION: VITAL SIGNS: Temperature 97.3, pulse 95, respirations 20, blood pressure 154/80. O2 sat 93%, she is on 2 L of oxygen. HISTORY AND PHYSICAL [id number] MYNOR AGUILAR HEENT: Grossly within normal limits. NECK: Supple. No JVD or bruit. HEART: Regular rate and rhythm without murmur. LUNGS: With decreased breath sounds in the bases bilaterally. ABDOMEN: Soft, flat, nontender. EXTREMITIES: With 2-3+ edema in the feet and ankles. IMAGING: Chest x-ray shows enlarged heart, increased pulmonary vasculature consistent with CHF. LABORATORY DATA: CBC with a white count of 9900, hemoglobin 12.7. Basic metabolic panel: Potassium 3.1, BUN 45, creatinine 1.9. Liver enzymes are all okay except total bilirubin a little elevated at 1.67, proBNP 22,935. ASSESSMENT: 1. Acute systolic congestive heart failure. 2. History of nonischemic cardiomyopathy, intolerant to beta-blockers. 3. Hypertension. PLAN: We will admit, leannae. Dr. Moreno has already seen the patient. We will repeat echo. He started low-dose dobutamine. He talked to her about a biventricular pacer and considering start trying Entresto for her. Other tests and procedures as warranted. TRANSINT:[id number] Voice Confirmation ID: [id number] DOCUMENT ID: [id number] ANTHONY CATHERINE MD at 1114 CC: [id number] DICTATION DATE: 10/08/16 185 SHANK CARRIER: 10/09/16 0032 ADM IN [facility] [address] [place] [address]
--- NOTE | 2016-10-09 11:55 | NUR ---
RESTS IN BED WITH CALL LIGHT IN REACH. TELEMETRY SR. DAUGHTER AT BS. WILL CONT. PLAN OF CARE.
[2016-10-09 12:41] VITALS: Ht 154.9 cm; Wt 94.7 kg
[2016-10-09 12:54] VITALS: BP 169/82
[2016-10-09 16:20] VITALS: BP 136/74
[2016-10-10] VITALS: BP 140/69
[2016-10-10 04:00] VITALS: BP 162/86
[2016-10-10 06:05] LABS: ANION GAP 13.2 mmol/L (8-16); CALCIUM 8.4 mg/dL (8.5-10.1); CARBON DIOXIDE 30.1 mmol/L (21.0-32.0); CREATININE - SERUM 1.4 mg/dL (0.6-1.3); POTASSIUM - SERUM 3.3 mmol/L (3.5-5.1)
[2016-10-10 06:19] LABS: HEMATOCRIT 36.4 % (36.0-48.0); HEMOGLOBIN 11.3 g/dL (12-16); LYMPHOCYTES 18.7 % (15-50); MCH 27.4 pg (26.0-34.0); MCV 88.3 fL (80.0-100.0); MEAN PLATELET VOLUME 10.1 fL (7.4-10.4); PLATELET COUNT 170 10x3/uL (130-400); RBC 4.12 10x6/uL (4.00-5.40); RDW 17.4 % (11.5-14.5)
[2016-10-10 08:12] VITALS: BP 164/94
[2016-10-10 12:14] VITALS: BP 154/79
[2016-10-10 15:43] VITALS: BP 137/68
[2016-10-10 20:00] VITALS: BP 149/82
[2016-10-11] VITALS: BP 150/88
[2016-10-11 04:00] VITALS: BP 155/79
[2016-10-11 05:38] LABS: BASOPHILS 0.6 % (0-2); HEMATOCRIT 40.5 % (36.0-48.0); HEMOGLOBIN 12.7 g/dL (12-16); IMMATURE GRANULOCYTES 0.2 % (0-5); LYMPHOCYTES 19.1 % (15-50); MCH 28.1 pg (26.0-34.0); MCHC 31.4 g/dL (31.0-37.0); MCV 89.6 fL (80.0-100.0); MEAN PLATELET VOLUME 10.7 fL (7.4-10.4); MONOCYTES 4.4 % (2-11); NEUTROPHILS 67.7 % (40-80); RBC 4.52 10x6/uL (4.00-5.40); WBC 4.8 10x3/uL (4.8-10.8)
[2016-10-11 05:39] LABS: PLATELET COUNT 219 10x3/uL (130-400)
[2016-10-11 06:02] LABS: ANION GAP 13.3 mmol/L (8-16); CALCIUM 8.7 mg/dL (8.5-10.1); CARBON DIOXIDE 30.9 mmol/L (21.0-32.0); CREATININE - SERUM 1.5 mg/dL (0.6-1.3); POTASSIUM - SERUM 3.2 mmol/L (3.5-5.1)
--- NOTE | 2016-10-11 07:56 | NUR ---
ASSESSMENT DONE. DENIES NEEDS.
[2016-10-11 08:00] VITALS: BP 143/81
--- NOTE | 2016-10-11 08:15 | NUR ---
RESP UL ON 02 2L NC. CALL LIGHT IN REACH. WILL CONT. MAGALI OF CARE.
[2016-10-11] MEDS ORDERED: ENTRESTO 24 MG1 EACH PO (09:58)
[2016-10-11 12:00] VITALS: BP 130/64
--- NOTE | 2016-10-11 13:31 | NUR ---
DC GIVEN TO PT
--- NOTE | 2016-10-11 14:27 | NUR ---
DC HOME PER PERSONAL CAR
== END 2016-10-11 14:27 | disposition home or self-care (01) | DRG 291 ==
LOC: D.ER 06:47 → D.M2 13:23 → D.MS 13:23 → D.M2 15:39
PROVIDERS: Emergency Medicine; ADMIT Family Medicine
DX: I13.0 Hypertensive heart and chronic kidney disease with heart failure and stage 1 through stage 4 chronic kidney disease, or unspecified chronic kidney disease (principal); I50.21 Acute systolic (congestive) heart failure; N18.9 Chronic kidney disease, unspecified; E21.3 Hyperparathyroidism, unspecified; Z87.891 Personal history of nicotine dependence; I42.0 Dilated cardiomyopathy

== ENCOUNTER → 2016-10-22 17:44 | Outpatient (CLI) | payer MEDICARE ==
[2016-10-09 12:41] VITALS: BMI 28.1
[~2016-10-22 17:44] MED LIST changes: +ENTRESTO 24 MG1 EACH PO; +NIFEDIPINE ER60 MG PO
[2016-10-22 18:19] LABS: ANION GAP 11.8 mmol/L (8-16); CALCIUM 9.3 mg/dL (8.5-10.1); CARBON DIOXIDE 33.3 mmol/L (21.0-32.0); CREATININE - SERUM 1.7 mg/dL (0.6-1.3); POTASSIUM - SERUM 4.1 mmol/L (3.5-5.1)
== END | disposition home or self-care (01) ==
LOC: D.LABREF 17:44
PROVIDERS: Internal Medicine Cardiovascular Disease
DX: I50.9 Heart failure, unspecified (principal)

== ENCOUNTER → 2016-11-13 12:28 | Outpatient (CLI) | payer MEDICARE ==
[2016-10-09 12:41] VITALS: BMI 28.1
== END | disposition home or self-care (01) ==
LOC: D.RT 12:28
DX: J44.9 Chronic obstructive pulmonary disease, unspecified (principal)

== ENCOUNTER 2016-12-13 05:24 | Inpatient (IN) | payer MEDICARE ==
[~2016-12-13] VITALS: Ht 154.9 cm; Wt 63.8 kg
[2016-12-13 05:56] LABS: BASOPHILS 0.2 % (0-2); EOSINOPHILS 1.1 % (0-7); HEMATOCRIT 37.3 % (36.0-48.0); IMMATURE GRANULOCYTES 0.2 % (0-5); LYMPHOCYTES 17.4 % (15-50); MCH 28.3 pg (26.0-34.0); MCHC 32.2 g/dL (31.0-37.0); MEAN PLATELET VOLUME 10.1 fL (7.4-10.4); MONOCYTES 4.2 % (2-11); NEUTROPHILS 76.9 % (40-80); PLATELET COUNT 191 10x3/uL (130-400); RBC 4.24 10x6/uL (4.00-5.40); RDW 16.8 % (11.5-14.5); WBC 4.7 10x3/uL (4.8-10.8)
[2016-12-13 06:13] LABS: ALBUMIN 3.8 g/dL (3.4-5.0); ANION GAP 17.7 mmol/L (8-16); BILIRUBIN - TOTAL 1.26 mg/dL (0.2-1.3); CALCIUM 8.9 mg/dL (8.5-10.1); CARBON DIOXIDE 24.3 mmol/L (21.0-32.0); CREATININE - SERUM 2.4 mg/dL (0.6-1.3); PROTEIN - SERUM 7.4 g/dL (6.4-8.2)
--- NOTE | 2016-12-13 07:54 | NUR ---
RECEIVED REPORT FROM JOSE IN ER. PATIENT TO UNIT SOON.
[2016-12-13] MEDS ORDERED: KLOR-CON 1010 MEQ PO (08:19)
[2016-12-13] MEDS ORDERED: ENTRESTO 24 MG1 EACH PO (08:22)
--- NOTE | 2016-12-13 08:32 | NUR ---
RECEIVED VIA STRETCHER FROM THE ED, ON 3L PER NC. SALINE LOCK SEEN TO RIGHT AC. YELLOW ARMBAND AND NON SKID SOCKS ARE PLACED ON PATIENT. 2-3 + SEEN TO FEET WILL ADMIT.
[2016-12-13 10:04] VITALS: BP 171/96; BMI 27.6
--- NOTE | 2016-12-13 10:22 | NUR ---
SCDS APPLIED TO BILATERAL LOWER EXTREMITIES.
[2016-12-13 11:53] VITALS: BP 151/76
[2016-12-13 12:09] VITALS: Ht 154.9 cm; Wt 63.8 kg
--- NOTE | 2016-12-13 13:51 | NUR ---
DOBUTAMINE GTT STARTED AT 5MCG/KG/MIN AT THIS TIME. SITTING UP IN BED. NO DISTRESS.
[2016-12-13 16:00] VITALS: BP 173/69
--- NOTE | 2016-12-13 18:30 | NUR ---
PATIENT RESTING IN BED WITH EYES CLOSED, EASILY AROUSED. PATIENT STATES SHE FEELS SO MUCH BETTER NOW THAT SOME OF THE FLUID IS FINALLY COMING OFF. NO DISTRESS.
[2016-12-13 20:00] VITALS: BP 156/77
--- NOTE | 2016-12-13 21:58 | HP ---
PATIENT: MYNOR AGUILAR MEDICAL RECORD: [id number] ACCOUNT: [id number] LOCATION:[address] : 42 ADMISSION DATE: 12/13/16 HISTORY AND PHYSICAL EXAMINATION ADMITTING PHYSICIAN: Dr. Jamari Trent. REASON FOR ADMISSION: Shortness of breath and burning in the chest. HISTORY OF PRESENT ILLNESS: The patient states for the last week she has had increasing shortness of breath and leg edema. She had had burning in her chest with cough, nonproductive. She states she called Dr. Hunter's office and the pulmonary office, but had not heard back from them. She recently had a walk test that required 3 liters of nasal O2 to keep her sat above 86%. She also has had PFTs, which showed restrictive lung disease with FEV1 of 0.93% and moderate improvement with bronchodilators to 27%. She states she is not on any updrafts or bronchodilators currently. She states she has got more short of breath and for that reason came to the Emergency Room for admission. She did want to come to the hospital. She does not do daily weights, she states. PAST MEDICAL HISTORY: Systolic congestive heart failure with multiple admissions and last discharge was 10/11/2016, cardiomyopathy, dilated nonischemic essential hypertension, restrictive lung disease, chronic renal insufficiency, hyperparathyroidism. PAST SURGICAL HISTORY: Tubal ligation, cholecystectomy, hysterectomy, partial colectomy, abdominal hernia repair, parathyroidectomy. ALLERGIES: AMOXICILLIN, APRESOLINE, ____, FLEXERIL, GABAPENTIN, BETA BLOCKERS, ISOSORBIDE. SOCIAL HISTORY: Former smoker. No history of alcohol or drug use. FAMILY HISTORY: Both parents with congestive heart failure. REVIEW OF SYSTEMS: GENERAL: Fatigued, no fever. HEENT: No recent new visual change, sinus congestion, sore throat or hearing difficulty. RESPIRATORY: Shortness of breath with minimal exertion or at rest, have to sit up to breathe on 3 pillows. Her chest has been burning, but not had a cough. CARDIAC: No exertional chest pain plus exertional dyspnea. GASTROINTESTINAL: She has had chronic edema and gradually increasing. ENDOCRINE: Denies polyuria, polydipsia, heat or cold intolerance. NEUROLOGIC: No history of stroke, TIA, or vascular headaches. MUSCULOSKELETAL: Denies arthralgias. GYNECOLOGICAL: No vaginal bleeding. GENITOURINARY: Denies dysuria or incontinence. PHYSICAL EXAMINATION: VITAL SIGNS: The patient is alert and oriented with mild tachypnea. Her sats are 90% on 3 liters. Heart rate is 100 and regular, respirations are 22 and blood pressure is 130/80. HEENT: Normocephalic. Eyes are clear. Ears unremarkable. NECK: Supple, without bruits or masses. No JVD. HISTORY AND PHYSICAL [id number] MYNOR AGUILAR CHEST: She has decreased breath sounds in the bases bilaterally. HEART: Tachycardic without murmur. ABDOMEN: Soft and nontender. EXTREMITIES: She has 3+ bipedal and pretibial edema to the knees bilaterally. NEUROLOGICAL: Oriented to person, place, and time. Gait was not tested. No motor deficits are appreciated. LABORATORY DATA: Shows white count of 4700, H&H of 12 and 37.3. BUN is 67, creatinine is 2.4. Potassium is 4.0, glucose 149 nonfasting. Liver functions are normal. ProBNP is 70,549. Cardiac enzymes were negative for acute injury. EKG shows sinus tachycardia, first degree AV block, LAD, poor anterior R waves with T-wave abnormalities laterally. ASSESSMENT: 1. Mfsqu-wl-nbtnowb systolic congestive heart failure. 2. INTOLERANT OF ____. 3. Dilated cardiomyopathy, nonischemic. 4. Restrictive lung disease. 5. Essential hypertension. 6. Remote hyperparathyroidism. PLAN: The patient will be admitted for diuresis. Cardiology consult, potential dobutamine drip. Further workup pending clinical course. TRANSINT:[id number] Voice Confirmation ID: [id number] DOCUMENT ID: [id number] SUZANNE BOB MD at 2158 CC: [id number] DICTATION DATE: 12/13/16 0849 SCALE INSTALLER: 12/13/16 0956 ADM IN [facility] [id number] [place] [id number]
[2016-12-14] VITALS: BP 164/60
[2016-12-14 04:00] VITALS: BP 125/58
[2016-12-14 06:09] LABS: BASOPHILS 0.4 % (0-2); EOSINOPHILS 1.1 % (0-7); HEMATOCRIT 32.1 % (36.0-48.0); HEMOGLOBIN 10.6 g/dL (12-16); IMMATURE GRANULOCYTES 0.2 % (0-5); LYMPHOCYTES 11.2 % (15-50); MCH 28.7 pg (26.0-34.0); MEAN PLATELET VOLUME 11.2 fL (7.4-10.4); MONOCYTES 5.1 % (2-11); PLATELET COUNT 160 10x3/uL (130-400); RBC 3.69 10x6/uL (4.00-5.40); WBC 5.4 10x3/uL (4.8-10.8)
--- NOTE | 2016-12-14 07:00 | NUR ---
RECEIVED REPORT. ASSUMED CARE OF PATIENT. PATIENT SITTING TO SIDE OF BED, VERY CHEERFUL THIS AM. STATES SHE CAN BREATH SO MUCH BETTER AND SLEPT SO GOOD LAST NIGHT SINCE GETTING THIS FLUID OFF. PATIENT DENIES NEEDS AT THIS TIME. CALL LIGHT WITHIN REACH. DOBUTAMINE DRIP INFUSING ORDERED. NO DISTRESS.
[2016-12-14 07:01] LABS: ANION GAP 12.3 mmol/L (8-16); CALCIUM 8.6 mg/dL (8.5-10.1); CARBON DIOXIDE 30.7 mmol/L (21.0-32.0); CREATININE - SERUM 1.8 mg/dL (0.6-1.3)
[2016-12-14 08:34] VITALS: BP 153/66
[2016-12-14 12:04] VITALS: BP 135/60
[2016-12-14 16:00] VITALS: BP 147/62
--- NOTE | 2016-12-14 17:01 | NUR ---
22 GAUGE IV PLACED TO RIGHT HAND X 1 STICK. GOOD BLOOD RETURN, EASY FLUSH. TAPED, DATED AND SECURED. TOLERATED IV PLACEMENT WELL. DOBUTAMINE DRIP INFUSING ORDERED. 20 GAUGE IV REMOVED FROM RIGHT AC, CONTINUOUS LEAKING FROM HUB. CATHETER TIP INTACT. NO BLEEDING FROM SITE. 2X2 GAUZE APPLIED AND SECURED WITH TAPE. NO DISTRESS.
--- NOTE | 2016-12-14 18:54 | NUR ---
LYING IN BED WITH EYES CLOSED. EASILY AROUSED. RESP EVEN AND UNLABORED. DOBUTAMINE INFUSING ORDERED. NO DISTRESS.
--- NOTE | 2016-12-14 20:10 | NUR ---
PT IN BED WITH HOB UP FOR COMFORT. WATCHING TV. ALERT & ORIENTED. TELEMETRY. ELECTROLYTE PROTOCOL. O2 @ 3L VIA N/C. RIGHT HAND DELBUTAMINE @ 10.1ML/HR. SCD'S. UP ADLIB. PT STATES SHE HAS A PAIN LEVEL OF 0/10. BED IN LOWEST POSITION AND CALL LIGHT WITHIN REACH.
[2016-12-14 21:40] VITALS: BP 145/62
--- NOTE | 2016-12-14 23:11 | NUR ---
AWAKE/ALERT AND RESTING IN BED. IV LASIX ADMINISTERED AT THIS TIME. MONITOR AND CPOC.
[2016-12-15] VITALS: BP 145/64
[2016-12-15 06:42] LABS: ANION GAP 9.1 mmol/L (8-16); CALCIUM 8.4 mg/dL (8.5-10.1); CARBON DIOXIDE 35.8 mmol/L (21.0-32.0); CREATININE - SERUM 1.4 mg/dL (0.6-1.3)
[2016-12-15 06:54] LABS: POTASSIUM - SERUM 2.9 mmol/L (3.5-5.1)
--- NOTE | 2016-12-15 07:31 | NUR ---
PATIENT IS SITTING UP ON THE SIDE OF HER BED. PATIENT IS AWAKE, ALERT, AND ORIENTED X4. NO COMPLAINTS OF PAIN AT PRESENT TIME. PATIENT DENIES ANY NEEDS AT PRESENT TIME AND STATES, "I AM JUST WAITING ON BREAKFAST". CALL LIGHT IN PATIENT'S REACH. WILL MONITOR PATIENT.
[2016-12-15 07:34] VITALS: BP 156/74
--- NOTE | 2016-12-15 09:07 | CN ---
PATIENT NAME:MYNOR AGUILAR MEDICAL RECORD: [id number] : 42 LOCATION:D.M2 D.2138 ADMIT DATE: 12/13/16 ACCOUNT: [id number] CONSULTING PHYSICIAN: MARIELA BOTELLO MD REFERRING PHYSICIAN: ANTHONY CATHERINE MD DATE OF CONSULTATION: 12/13/2016 HISTORY OF PRESENT ILLNESS: A 76-year-old lady well known to us with a history of nonischemic cardiomyopathy, EF approximately 20%, has been offered three lead ICD placed in the past; however, she deferred this and has classic volume overload in the past week course, also has a history of chronic renal insufficiency. We are asked to see her concerning her cardiovascular status. PAST MEDICAL HISTORY: Includes: 1. History of hypertension. 2. Nonischemic cardiomyopathy. MEDICATIONS: Typically include Entresto 1 b.i.d., Procardia 60 every day, Lasix 40 every day, potassium supplementation. ALLERGIES: INCLUDE AMOXICILLIN, CARVEDILOL, METOPROLOL, LABETALOL, ISOSORBIDE. SOCIAL HISTORY: , lives here in [place], does try to exercise. She is a nonsmoker. Has been under more stress taking care of her . REVIEW OF SYSTEMS: The patient reports easy bruising but reports no swollen glands. The patient reports no fever, no night sweats, no significant weight gain, no significant weight loss. No significant exercise tolerance. The patient reports no dry eyes, no irritation, no vision change. Patient reports no difficulty hearing and no ear pain. Patient reports no frequent nose bleeds or nose and sinus problems. Patient reports on arm pain on exertion. No shortness of breath while lying down. No history of heart murmur. Patient reports no cough, no wheezing or coughing up blood. Patient reports no abdominal pain, no vomiting. Normal appetite. No diarrhea and not vomiting blood. No nausea and no constipation. Patient reports no incontinence. No difficulty urinating. No hematuria. No increased frequency. Patient reports no muscle aches. No weakness, no arthralgias, no back pain. No swelling of the extremities. Patient reports no abnormal mole, no jaundice, no rashes. Reports no loss of consciousness. No weakness and no numbness. No seizures, dizziness, or headaches. The patient reports no depression, no sleep disturbance, feeling safe in a relationship and no alcohol abuse. Patient reports on fatigue. Reports no runny nose or sinus pressure. No itching, no hives, and no frequent sneezing. PHYSICAL EXAMINATION: GENERAL: Pleasant female in no acute distress. VITAL SIGNS: Blood pressure 131/76, pulse 93, regular. HEENT: Normocephalic, atraumatic. NECK: No JVD or bruit. HEART: Regular. LUNGS: Fair air excursion. ABDOMEN: Soft, nontender. EXTREMITIES: Pulse 2+, 1+ edema. IMPRESSION: Nonischemic cardiomyopathy with volume overload. Has responded CONSULT REPORT [id number] MYNOR AGUILAR previously nicely the Dobutrex drip. We will go ahead and start this. Has been responded as well as Dr. Moreno had hoped to the Entresto. At this point in time, she might consider 3 lead pacemaker for therapeutic purposes, but without defibrillator. Further recommendations based on clinical course. TRANSINT:[id number] Voice Confirmation ID: [id number] DOCUMENT ID: [id number] MARIELA BOTLELO MD at 0907 CC: [id number] DICTATION DATE: 12/13/16 1409 GROCERY STORE CLERK: 12/13/16 7405 ADM IN [place] [facility] [id number] [place] [address]
[2016-12-15 11:50] VITALS: BP 126/56
--- NOTE | 2016-12-15 13:29 | NUR ---
Nutrition follow-up: Diet: Low sodium PO intake 100% of last 3 meals Labs reviewed RDN visited with pt during meal rounds. Pt is very happy with meals; pt states she eats in our cafeteria for lunch a lot. Pt with improving appetite. +BM RDN following.
[2016-12-15 15:31] VITALS: BP 133/67
--- NOTE | 2016-12-15 19:53 | NUR ---
PT LYING IN BED WITH HOB UP FOR COMFORT. WATCHING TV.ALERT & ORIENTED. TELEMETRY. DAILY WEIGHT. STRICT I & O. PT STATES SHE HAS A PAIN LEVEL 0/10. O2 @ 3L VIA N/C. RIGHT HAND DELBUTAMINE @ 10ML/HR. BED IN LOWEST POSITION AND CALL LIGHT WITHIN REAH.
--- NOTE | 2016-12-15 19:56 | NUR ---
PT STATES, "MY THROAT FEELS ASHY, I HOPE IM NOT GETTING A VIRUS." I ASKED IF PT WOULD LIKE AN ICE CREAM AND PT STATED SHE WOULD LIKE A CUP OF ICE.
[2016-12-15 20:59] VITALS: BP 146/67
[2016-12-16 01:20] VITALS: BP 128/75
--- NOTE | 2016-12-16 01:50 | NUR ---
PT LYING IN BED. EYES CLOSED. CHEST RISING AND FALLING. BED IN LOWEST POSITION AND CALL LIGHT WITHIN REACH.
--- NOTE | 2016-12-16 03:02 | NUR ---
PT RESTING IN BED WITH NO DISTRESS. RESPS EVEN/NONLABORED. CPOC.
[2016-12-16 05:04] VITALS: BP 138/69
--- NOTE | 2016-12-16 07:35 | NUR ---
INTRODUCED MYSELF TO PT PRIMARY RN FOR TODAYS SHIFT. PT IS A&O RESTING QUIETLY IN BED WAITING ON BREAKFAST. SHIFT ASSESSMENT COMPLETED. PT HAS R.HAND PIV WITH DOBUTAMINE DRIP INFUSING @10.1ML/HR. DRSG CDI AND SWAB CAPS IN USE. RR NONLABORED WITH NC @3L IN PLACE. LUNGS CTA. PT IS HOPING TO BE DISCHARGED TODAY. PT DENIES ANY CURRENT PAIN OR FURTHER NEEDS AT THIS TIME. CL IN REACH, BED IN LOWEST, SIDE RAILS X2. WILL CPOC.
[2016-12-16 08:12] VITALS: BP 149/79
[2016-12-16 09:39] LABS: ANION GAP 10.3 mmol/L (8-16); CARBON DIOXIDE 37.1 mmol/L (21.0-32.0); CREATININE - SERUM 1.4 mg/dL (0.6-1.3)
[2016-12-16 09:44] LABS: POTASSIUM - SERUM 3.4 mmol/L (3.5-5.1)
[2016-12-16 11:47] VITALS: BP 129/57
--- NOTE | 2016-12-16 14:25 | NUR ---
DECREASED PTS DOBUTAMINE DRIP TO 9.6ML/HR BASED OFF OF PTS NEW RECORDED STANDING WEIGHT OF 64KG. PT RESTING WATCHING TV IN BED AND DENIES ANY CURRENT PAIN OR NEEDS, WISHING SHE CAN BE DISCHARGED BUT VERBALIZED UNDERSTANDING. PT CL IN REACH, BED IN LOWEST, SIDE RAILS X2. WILL CPOC.
[2016-12-16 15:54] VITALS: BP 110/65
--- NOTE | 2016-12-16 17:00 | NUR ---
PT FINISHED EATING LUNCH AND STATED THANKS. PT LYING IN BED RESTING QUIETLY AND STATES SHE IS COMFORTABLE. PT IS JUST HOPING TO BE DISCHARGED TOMORROW. DOBUTAMINE DRIP STILL INFUSING WITHOUT ANY ISSUES. DRSG CDI AND SWAB CAPS IN USE. CL IN REACH, BED IN LOWEST, SIDE RAILS X2, NO FURTHER NEEDS AT THIS TIME. WILL CPOC.
--- NOTE | 2016-12-16 19:25 | NUR ---
ALERT/AWAKE WATCHING TV. DENIES PAIN OR ANY NEEDS. IV IN RT HAND WITH DOBUTAMINE INFUSING AT 9.6ML/HR. TELEMETRY SHOWS [address], BBB. ASSESSMENTS COMPLETED. ORIENTED TO CALL LIGHT FOR ANY NEEDS.
[2016-12-16 20:39] VITALS: BP 140/77
--- NOTE | 2016-12-16 21:50 | NUR ---
ADMIN SCHED MEDS AND LASIX IV. REQUESTED LIGHTS OFF AND DOOR CLOSED.
[2016-12-17 00:07] VITALS: BP 131/68
--- NOTE | 2016-12-17 03:30 | NUR ---
PRINTING ENGINEER PRESENT IN ROOM TAKING VS. DENIES PAIN OR ANY NEEDS.
[2016-12-17 05:12] VITALS: BP 127/62
--- NOTE | 2016-12-17 06:55 | NUR ---
IV INFILTRATED. REMOVED AND PLACED WARM PACK FOR SWELLING AND PAIN. UNSUCCESSFUL AT RESITING X 2. WILL SEE IF ANOTHER NURSE CAN RESITE ANOTHER IV.
--- NOTE | 2016-12-17 07:45 | NUR ---
AM ROUNDS COMPLETED. PT IS SITTING UP IN BED A&O RESTING QUIETLY IN BED. PT IS SUPPOSE TO BE DISCHARGED LATER TODAY. PTS PIV HAD INFILTRATED AND SHE IS NOT WANTING ANOTHER STICK R/T DISCHARGE. WILL CHECK CHART AND NOTES AND SEE ABOUT DISCHARGING HER. PT VOICED THANKS AND DENIES ANY CURRENT PAIN OR FURTHER NEEDS AT THIS TIME. CL IN REACH, BED IN LOWEST, SIDE RAILS X2. WILL CPOC.
[2016-12-17 09:40] VITALS: BP 140/70
--- NOTE | 2016-12-17 10:02 | NUR ---
PT WILL BE DISCHARGED SHORTLY. PROVIDED HER WITH HER MORNING DOSE OF LASIX R/T HER PIV INFILTRATED WITH NIGHTSHIFT NURSE AND UNABLE TO RECIEVE HER IV LASIX.
[2016-12-17] MEDS ORDERED: ENTRESTO 24 MG1 EACH PO (12:38)
--- NOTE | 2016-12-17 12:51 | NUR ---
DISCHARGE TEACHING COMPLETED AND PT VERABLIZED UNDERSTANDING AND REC'D HER COPIES. BELONGINGS COLLECTED AND BAGGED FOR PT. PTS SON AT BEDSIDE FOR TRANSPORTATION, NOW AWAITING W/C AND PT WILL BE BROUGHT TO LOBBY. NO FURTHER NEEDS OR QUESTIONS OR CONCERNS.
--- NOTE | 2016-12-17 14:54 | NUR ---
Patient Name: MYNOR AGUILAR Admission Status: ER Accout number: [id number] Admission Date: 12-13-2016 : 1940 Admission Diagnosis:SHORTNESS OF BREATH Attending: JON Current LOS: 4 Anticipated DC Date: 12-17-2016 Planned Disposition: Home Primary Insurance: MEDICARE A & B Discharge Planning Comments: * Is the patient Alert and Oriented? Yes 0 * How many steps to enter\exit or inside your home? 1 W/RAIL 0 * PCP DR. CATHERINE 0 * Pharmacy [facility] ON [address] 0 * Preadmission Environment Home with Family 0 * ADLs Independent 0 * Equipment Cane Oxygen Shower Chair Walker Wheelchair 0 * Other Equipment HOME AND PORTABLE OXYGEN [facility] - MEDICAL EQUIPMENT PROVIDER PREFERENCE 0 * List name and contact numbers for known caregivers / representatives who currently or will assist patient after discharge: JORJE, DAUGHTER, SANDY VERA, GRANDSON, ANTHONY AGUILAR, SPOUSE, 0 * Community resources currently utilized None 0 * Please name any agencies selected above. NONE 0 * Additional services required to return to the preadmission environment? No 0 * Can the patient safely return to the preadmission environment? Yes 0 * Has this patient been hospitalized within the prior 30 days at any hospital? No 0 CM MET WITH PT IN ROOM TO DISCUSS DISCHARGE PLANNING AND NEEDS. PT REPORTS LIVING AT HOME INDEPENDENTLY WITH SPOUSE AND GRANDSON. PT REPORTS HAVING ALL NEEDED MEDICAL EQUIPMENT FROM [facility] AND NO OUTSIDE SERVICES ASSISTING IN THE HOME. PT'S GRANDSON ASSISTS WITH TRANSPORTATION NEEDED. CM DISCUSSED AVAILABILITY OF HOME HEALTH, REHAB SERVICES AND MEDICAL EQUIPMENT. PT DENIES DISCHARGE NEEDS, REPORTS HER GRANDSON WILL PICK HER UP FOR DISCHARGE HOME. IMPORTANT MESSAGE FROM MEDICARE PROVIDED AND EXPLAINED. Fitting Room Supervisor: James Amaya
== END 2016-12-17 13:16 | disposition home or self-care (01) | DRG 291 ==
LOC: D.ER 05:24 → D.M2 07:38
PROVIDERS: Emergency Medicine; Family Medicine; ADMIT Family Medicine
DX: I13.0 Hypertensive heart and chronic kidney disease with heart failure and stage 1 through stage 4 chronic kidney disease, or unspecified chronic kidney disease (principal); I50.23 Acute on chronic systolic (congestive) heart failure; N18.3 Chronic kidney disease, stage 3 (moderate); Z87.891 Personal history of nicotine dependence; I42.0 Dilated cardiomyopathy; E87.6 Hypokalemia

== ENCOUNTER 2017-09-18 12:31 | Inpatient (IN) | payer MEDICARE ==
[~2017-09-18] VITALS: Ht 154.9 cm; Wt 62.7 kg
--- NOTE | ~2017-09-18 | HP ---
PATIENT: MYNOR AGUILAR MEDICAL RECORD: [id number] ACCOUNT: [id number] LOCATION:[facility].2107 : 42 ADMISSION DATE: 09/18/17 HISTORY AND PHYSICAL EXAMINATION REASON FOR ADMISSION: Shortness of breath. HISTORY OF PRESENT ILLNESS: The patient is a 77-year-old -Maldiv[place] female followed by Dr. Trent and Dr. Kim through [facility]. She had been on hospice due to nonischemic cardiomyopathy and chronic congestive heart failure. She was scheduled to have a defibrillator placed in January in [place] by Dr. Pulido, but she had a CVA. She was hospitalized there for the CVA on 02/03/2017. She had a large pleural effusion that was drained and a moderate sized pericardial effusion. She was apparently discharged and has been in hospice since that time. The patient states she has been weaker, more short of breath for the last several days. For that reason, her family rescinded her hospice and she was in the Emergency Room for evaluation. She has had edema in both arms and legs. The patient remains a DNR; however. She is being admitted now to try to help with some of the edema, discomfort she is having. PAST MEDICAL HISTORY: Congestive heart failure with EF of 25%, chronic renal insufficiency, history of gallstones, hypertension, recurrent pleural effusion, transudative, ventral hernia, essential hypertension, left hemispheric CVA 2016. Left atrial enlargement at 4.8 cm, severe dilated left ventricular cavity with global hypokinesis, dilated right ventricle, severely dilated left atrium and right atrium, sclerosis of the aortic valve without stenosis, history of bacterial pneumonia, left lower lobe. PAST SURGICAL HISTORY: Colostomy, hysterectomy, colostomy revision and takedown, and tubal ligation. ALLERGIES: COREG, HYDRALAZINE, ISOSORBIDE DINITRATE, AND METOPROLOL. SOCIAL HISTORY: A former smoker, never used oral tobacco, does not use alcohol. She is a Mandaen and defers blood products. FAMILY HISTORY: Parents are , had hypertension. MEDICATIONS: Lasix 80 mg daily, nifedipine 60 mg daily, potassium 10 mEq daily, lorazepam 0.5 p.r.n. anxiety, metolazone 5 mg p.o. Thursday, Thursday and Thursday, ondansetron 4 mg p.r.n., oxycodone 5 mg p.r.n. pain, Prilosec 20 mg a day, diphenhydramine 25 mg p.r.n. REVIEW OF SYSTEMS: GENERAL: Chronic fatigue, increasing shortness of breath and edema. No recent fever. HEENT: No recent visual change, sinus congestion, or sore throat. RESPIRATORY: Chronic shortness of breath gradually worse over the last several weeks. Denies sputum production. CARDIAC: Denies chest pain, but admits to increasing edema in all over extremities, left side worse than right, upper and lower. GASTROINTESTINAL: No nausea, vomiting, change in stools. GENITOURINARY: She has incontinence. GYNECOLOGIC: No vaginal bleeding. ENDOCRINE: Denies polyuria, polydipsia, heat or cold intolerance. HISTORY AND PHYSICAL [id number] MYNOR AGUILAR NEUROLOGIC: Known history of left hemispheric cerebrovascular accident with good recovery of motor and speech. Denies history of seizures. INTEGUMENT: No rash or itching. PSYCHIATRIC: Admits to depressed mood. PHYSICAL EXAMINATION: VITAL SIGNS: Temperature is 99 degrees Fahrenheit orally, pulse 99 and irregular, respirations were 31 and unlabored, blood pressure 163/97 with a sat 94%, on mask 100%. Her height is 5 feet 1 inch, weight 160 pounds or 72.5 kilos. GENERAL: The patient is alert and oriented. HEENT: Eyes are clear. NECK: No bruits appreciated. Positive JVD bilaterally. CHEST: Reveals crackles in the bases bilaterally, left greater than right. HEART: Regular rate with II/ systolic aortic murmur. No diastolic rumble. PMI is displaced laterally in the midclavicular line. IMAGING: Chest x-ray shows cardiomegaly with small bilateral pleural effusions, basilar airspace disease suggestive of CHF. LABORATORY DATA: White count 4000, H&H of 14.6 and 45.7 respectively. Normal diff, electrolytes were normal. BUN and creatinine are 86 and 3.5, glucose is 115. ProBNP is 116,884. ASSESSMENT: 1. Ofxka-dj-lhezxvs systolic congestive heart failure. 2. Ischemic dilated cardiomyopathy. 3. Bilateral pleural effusions. 4. Chronic renal insufficiency. 5. Essential hypertension. 6. Remote cerebrovascular accident. 7. Generalized lymphedema. PLAN: The patient's family has rescinded her hospice status to help with her comfort and peripheral edema. ER note states she is still a DNR by family request. She has been seen by cardiology and they have requested to place the patient on Dobutrex drip to help with congestive failure and edema management. TRANSINT:[id number] Voice Confirmation ID: [id number] DOCUMENT ID: [id number] SUZANNE BOB MD at 0711 CC: [id number] DICTATION DATE: 09/18/17 172 RECEIVING ASSOCIATE STORE: 09/18/17 2201 ADM IN [facility] [address] [place] [address]
--- NOTE | ~2017-09-18 | EC ---
PATIENT:MYNOR AGUILAR DATE OF SERVICE: 09/18/17 SEX: F MEDICAL RECORD: [id number] DATE OF : 42 LOCATION:D.M2 D.210 AGE OF PATIENT: 77 ADMISSION DATE: 09/18/17 REFERRING PHYSICIAN: INTERPRETING PHYSICIAN: ERNIE CHARLES MD ECHOCARDIOGRAM REPORT ECHO CHARGES 4 ECHO COMPLETE Date: 09/18 CLINICAL DIAGNOSIS: CHF ECHOCARDIOGRAPHIC MEASUREMENTS (adult normal given) AC root (d.<3.7cm) 3.1 cm LV Septum d (<1.2 cm> 1.3 cm Valve Excursion 1.9 cm LV Septum (systole) 1.9 cm Left Atria (s.<4.0cm> 4.2 cm LVPW d(<1.2cm) 1.5 cm RV (d.<2.3cm) 3.2 cm LVPW (sytole) 1.7 cm LV diastole(<5.6CM) 6.1 cm MV E-F(>70mm/sec) cm LV systole 5.1 cm LVOT Diameter 1.8 cm MV exc.(>10mm) cm Est.ejection fraction (50-75%) % DOPPLER: LVIT cm/sec A cm/sec E 143 cm/sec LA cm/sec RVSP 85.0 mmHg LVOT 50.0 cm/sec AOP1/2T m/s Asc. Ao 140 cm/sec RVOT 57.0 cm/sec RA cm/sec PA 68.0 cm/sec AV Gradient Peak 7.9 mmHg AV Mean 3.8 mmHg AV Area 0.9 cm MV Gradient Peak 8.9 mmHg MV Mean 3.7 mmHg MV Area cm COMMENTS: Office Services Assistant: Gaby FRITZOE Salvage Supervisor: 1 Dr. Charles TAPE# PACS Pericardial Effusion Y DATE OF SERVICE: 09/18/2017 PROCEDURE: Echocardiogram. FINDINGS: 1. Left ventricular chamber size is dilated. Left ventricular systolic function is markedly reduced, overall ejection fraction 10% to 15%. 2. Left atrium, right atrium, and right ventricle chamber sizes are as well dilated. 3. Valvular structures have normal structure and motion. ECHOCARDIOGRAM REPORT [id number] MYNOR AGUILAR 4. Doppler interrogation reveals moderate to severe mitral regurgitation, moderate to severe tricuspid regurgitation, no other valvular insufficiency or stenosis. Pulmonary systolic pressure is markedly elevated estimated at 85 mmHg. 5. Small pericardial effusion is present. This is not hemodynamically compromising. No evidence of left ventricular thrombus. TRANSINT:[id number] Voice Confirmation ID: [id number] DOCUMENT ID: [id number] ERNIE CHARLES MD at 1629 CC: [id number] DICTATION DATE: 09/19/17 0843 TAPE KELLER OPERATOR: 09/19/17 1152 ADM IN [facility] [address] [place] [id number]
--- NOTE | ~2017-09-18 | CN ---
PATIENT NAME:MYNOR AGUILAR MEDICAL RECORD: [id number] : 44 LOCATION:D.MS Vang2223 ADMIT DATE: 09/18/17 ACCOUNT: [id number] CONSULTING PHYSICIAN: ERNIE HURT MD REFERRING PHYSICIAN: DEMETRIA BRADLEY MD DATE OF CONSULTATION: 09/18/2017 CARDIOLOGY CONSULTATION DIAGNOSES: 1. Congestive heart failure, chronic systolic dysfunction. 2. Cardiomyopathy. 3. Hypertension. 4. Renal insufficiency. 5. Shortness of breath, dyspnea on exertion. 6. Lower extremity edema. HISTORY OF PRESENT ILLNESS: Ms. Aguilar presents with increasing shortness of breath and lower extremity edema. She does have a history of congestive heart failure, chronic systolic dysfunction, and ejection fraction in the 20% range. She also has a history of renal insufficiency. Her creatinine is now in the 3.5 range. PHYSICAL EXAMINATION: GENERAL APPEARANCE: Well-nourished, well-developed, appears stated age. Level of distress, comfortable. PSYCHIATRIC: Mental status, alert, normal affect. Orientation, oriented to time, place and person. EYES: Lids and conjunctiva, noninjected. No discharge, no pallor. ENT: Lips, teeth, gums, normal dentition. Oropharynx, no cyanosis, no pallor. NECK: Carotid arteries, bilateral normal upstroke, no bruits, no thrills. JUGULAR VEINS: No jugular venous pressure or distention. CERVICAL LYMPH NODES: Nontender, nonenlarged. THYROID: Not enlarged. Nontender. No nodules. LUNGS: Respiratory effort, unlabored. CHEST: Normal curvature. No thoracic deformity. No chest wall tenderness. Percussion, resonant. Auscultation, clear. No wheezes, no rales, no rhonchi. CARDIOVASCULAR: Precordial exam, nondisplaced. No heaves or pericardial thrills. Rate and rhythm, regular. Heart sounds, normal S1, normal S2. No S3, no gallop, no rub. Systolic murmur, not heard. Diastolic murmur, not heard. EXTREMITIES: No cyanosis, no edema. Peripheral pulses, full and equal in all extremities, except as noted. No bruits appreciated. ABDOMEN: Soft, nondistended. Normal aorta. No bruit. Nontender. No masses. Liver, nontender, no hepatomegaly. Spleen, nontender, no splenomegaly. MUSCULOSKELETAL: No joint tenderness. No joint swelling. No erythema. NEUROLOGICAL: Normal gait, normal strength, normal tone. SKIN: Warm and dry. REVIEW OF SYSTEMS: The patient reports easy bruising but reports no swollen glands. The patient reports no fever, no night sweats, no significant weight gain, no significant weight loss. No significant exercise tolerance. The patient reports no dry eyes, no irritation, no vision change. Patient reports no difficulty hearing and no ear pain. Patient reports no frequent nose bleeds or nose and sinus problems. Patient reports on arm pain on exertion. No shortness of breath while lying down. No history of heart murmur. Patient CONSULT REPORT [id number] MYNOR AGUILAR reports no cough, no wheezing or coughing up blood. Patient reports no abdominal pain, no vomiting. Normal appetite. No diarrhea and not vomiting blood. No nausea and no constipation. Patient reports no incontinence. No difficulty urinating. No hematuria. No increased frequency. Patient reports no muscle aches. No weakness, no arthralgias, no back pain. No swelling of the extremities. Patient reports no abnormal mole, no jaundice, no rashes. Reports no loss of consciousness. No weakness and no numbness. No seizures, dizziness, or headaches. The patient reports no depression, no sleep disturbance, feeling safe in a relationship and no alcohol abuse. Patient reports on fatigue. Reports no runny nose or sinus pressure. No itching, no hives, and no frequent sneezing. OVERALL IMPRESSION: Decompensated volume overload, congestive heart failure. At this time, we will start her on dobutamine as well as Lasix 80 mg every 8 hours. Hopefully, this will clear her fluid and symptomatology. TRANSINT:[id number] Voice Confirmation ID: [id number] DOCUMENT ID: [id number] ERNIE HURT MD at 1739 CC: [id number] DICTATION DATE: 09/18/17 1544 MANAGER IMAGING: 09/18/17 1608 ADM IN [place] [id number] [place] [address]
[~2017-09-18 12:31] MED LIST changes: +KLOR-CON 1010 MEQ PO
[2017-09-18 13:43] LABS: BASOPHILS 0.4 % (0-2); EOSINOPHILS 0.6 % (0-7); HEMATOCRIT 45.7 % (36.0-48.0); HEMOGLOBIN 14.6 g/dL (12-16); IMMATURE GRANULOCYTES 0.2 % (0-5); LYMPHOCYTES 13.8 % (15-50); MCH 28.4 pg (26.0-34.0); MCHC 31.9 g/dL (31.0-37.0); MCV 88.9 fL (80.0-100.0); MONOCYTES 7.5 % (2-11); NEUTROPHILS 77.5 % (40-80); PLATELET COUNT 129 10x3/uL (130-400); RBC 5.14 10x6/uL (4.00-5.40); RDW 18.7 % (11.5-14.5); WBC 4.6 10x3/uL (4.8-10.8)
[2017-09-18 14:11] LABS: ALBUMIN 3.1 g/dL (3.4-5.0); ANION GAP 14.4 mmol/L (8-16); BILIRUBIN - TOTAL 0.99 mg/dL (0.2-1.3); CALCIUM 8.8 mg/dL (8.5-10.1); CREATININE - SERUM 3.5 mg/dL (0.6-1.3); POTASSIUM - SERUM 4.4 mmol/L (3.5-5.1); PROTEIN - SERUM 7.3 g/dL (6.4-8.2)
[2017-09-18] MEDS ORDERED: LASIX80 MG PO (15:02)
[2017-09-18] MEDS ORDERED: ATIVAN0.5 MG PO (15:03)
[2017-09-18] MEDS ORDERED: METOLAZONE5 MG PO (15:04)
[2017-09-18] MEDS ORDERED: ZOFRAN4 MG PO (15:04)
[2017-09-18] MEDS ORDERED: OMEPRAZOLE20 M1 PO (15:05)
[2017-09-18] MEDS ORDERED: OXYCODONE HCL5 MG PO (15:05)
[2017-09-18] MEDS ORDERED: DIPHEDRYL25 MG PO (15:06)
[2017-09-18 15:12] VITALS: BP 151/83; BMI 34.0
[2017-09-18 16:04] VITALS: BP 157/83
[2017-09-18 20:00] VITALS: BP 171/87
[2017-09-19 01:00] VITALS: BP 157/75
[2017-09-19 05:09] VITALS: BP 166/72
[2017-09-19 05:12] LABS: BASOPHILS 0.2 % (0-2); EOSINOPHILS 0.5 % (0-7); HEMATOCRIT 38.6 % (36.0-48.0); IMMATURE GRANULOCYTES 0.2 % (0-5); LYMPHOCYTES 9.3 % (15-50); MCH 27.6 pg (26.0-34.0); MCHC 31.1 g/dL (31.0-37.0); MCV 88.9 fL (80.0-100.0); MONOCYTES 6.8 % (2-11); PLATELET COUNT 122 10x3/uL (130-400); RBC 4.34 10x6/uL (4.00-5.40); RDW 18.8 % (11.5-14.5); WBC 4.4 10x3/uL (4.8-10.8)
[2017-09-19 05:15] LABS: ANION GAP 10.3 mmol/L (8-16); CALCIUM 8.3 mg/dL (8.5-10.1); CARBON DIOXIDE 33.7 mmol/L (21.0-32.0); CREATININE - SERUM 3.5 mg/dL (0.6-1.3)
[2017-09-19 08:29] VITALS: BP 175/79
[2017-09-19 11:54] VITALS: BP 168/67
[2017-09-19 14:17] VITALS: Ht 154.9 cm; Wt 62.7 kg
[2017-09-19 15:44] VITALS: BP 141/66
[2017-09-19 20:00] VITALS: BP 133/67
[2017-09-20 01:00] VITALS: BP 138/66
[2017-09-20 04:00] VITALS: BP 142/68
[2017-09-20 06:09] LABS: BASOPHILS 0.3 % (0-2); EOSINOPHILS 1.1 % (0-7); HEMOGLOBIN 12.4 g/dL (12-16); LYMPHOCYTES 9.1 % (15-50); MCH 27.8 pg (26.0-34.0); MCHC 31.8 g/dL (31.0-37.0); MCV 87.4 fL (80.0-100.0); MONOCYTES 8.5 % (2-11); PLATELET COUNT 108 10x3/uL (130-400); RBC 4.46 10x6/uL (4.00-5.40); RDW 18.4 % (11.5-14.5); WBC 3.5 10x3/uL (4.8-10.8)
[2017-09-20 06:27] LABS: CALCIUM 8.4 mg/dL (8.5-10.1); CARBON DIOXIDE 35.6 mmol/L (21.0-32.0); POTASSIUM - SERUM 3.6 mmol/L (3.5-5.1)
[2017-09-20 07:54] VITALS: BP 170/74
[2017-09-20 13:46] VITALS: BP 163/70
[2017-09-20 15:29] VITALS: BP 150/82
[2017-09-20 20:00] VITALS: BP 175/59
[2017-09-21 01:00] VITALS: BP 155/89
[2017-09-21 05:00] VITALS: BP 172/72
[2017-09-21 07:00] VITALS: BP 150/83
[2017-09-21 12:00] VITALS: BP 132/65
[2017-09-21 17:14] VITALS: BP 143/69
[2017-09-21 20:36] VITALS: BP 124/64
[2017-09-22] VITALS: BP 159/76
[2017-09-22 05:20] VITALS: BP 147/71
[2017-09-22 06:11] LABS: BASOPHILS 0.2 % (0-2); EOSINOPHILS 0.9 % (0-7); HEMATOCRIT 39.7 % (36.0-48.0); HEMOGLOBIN 12.4 g/dL (12-16); LYMPHOCYTES 6.1 % (15-50); MCH 27.8 pg (26.0-34.0); MCHC 31.2 g/dL (31.0-37.0); MEAN PLATELET VOLUME 11.2 fL (7.4-10.4); MONOCYTES 8.5 % (2-11); NEUTROPHILS 84.3 % (40-80); RBC 4.46 10x6/uL (4.00-5.40); RDW 18.6 % (11.5-14.5); WBC 4.3 10x3/uL (4.8-10.8)
[2017-09-22 06:19] LABS: PLATELET COUNT 137 10x3/uL (130-400)
[2017-09-22 06:35] LABS: ANION GAP 8.6 mmol/L (8-16); CALCIUM 8.4 mg/dL (8.5-10.1); CARBON DIOXIDE 39.6 mmol/L (21.0-32.0); CREATININE - SERUM 2.7 mg/dL (0.6-1.3); POTASSIUM - SERUM 3.2 mmol/L (3.5-5.1)
[2017-09-22 09:25] VITALS: BP 151/70
[2017-09-22 12:22] VITALS: BP 152/71
[2017-09-22 16:46] VITALS: BP 143/71
[2017-09-22 21:27] VITALS: BP 143/70
[2017-09-23 01:02] VITALS: BP 140/54
[2017-09-23 05:37] VITALS: BP 155/74
[2017-09-23 09:15] VITALS: BP 95/59
[2017-09-23 14:29] VITALS: BP 106/75
[2017-09-23 16:21] VITALS: BP 100/62
[2017-09-23 21:32] VITALS: BP 120/57
[2017-09-24 01:03] VITALS: BP 132/66
[2017-09-24 08:13] VITALS: BP 144/76
[2017-09-24 17:07] VITALS: BP 157/88
[2017-09-24 21:23] VITALS: BP 140/56
[2017-09-25 01:38] VITALS: BP 118/95
[2017-09-25 04:53] VITALS: BP 136/78
[2017-09-25 05:17] LABS: BASOPHILS 0.3 % (0-2); EOSINOPHILS 0.8 % (0-7); HEMATOCRIT 36.8 % (36.0-48.0); IMMATURE GRANULOCYTES 0.3 % (0-5); LYMPHOCYTES 15.4 % (15-50); MCH 27.5 pg (26.0-34.0); MCHC 29.9 g/dL (31.0-37.0); MEAN PLATELET VOLUME 11.3 fL (7.4-10.4); MONOCYTES 5.9 % (2-11); NEUTROPHILS 77.3 % (40-80); PLATELET COUNT 120 10x3/uL (130-400); RDW 18.3 % (11.5-14.5); WBC 3.8 10x3/uL (4.8-10.8)
[2017-09-25 05:27] LABS: ANION GAP 7.2 mmol/L (8-16); CALCIUM 8.2 mg/dL (8.5-10.1); CREATININE - SERUM 2.8 mg/dL (0.6-1.3)
[2017-09-25 05:32] LABS: CARBON DIOXIDE 44.8 mmol/L (21.0-32.0)
[2017-09-25 09:09] VITALS: BP 135/73
[2017-09-25 11:53] VITALS: BP 144/76
[2017-09-25 16:50] VITALS: BP 141/82
[2017-09-25 22:57] VITALS: BP 129/69
[2017-09-26 02:57] VITALS: BP 109/55
[2017-09-26 05:20] LABS: BASOPHILS 0.2 % (0-2); EOSINOPHILS 0.7 % (0-7); HEMATOCRIT 36.8 % (36.0-48.0); LYMPHOCYTES 12.9 % (15-50); MCH 27.5 pg (26.0-34.0); MCHC 29.9 g/dL (31.0-37.0); MEAN PLATELET VOLUME 11.8 fL (7.4-10.4); MONOCYTES 3.7 % (2-11); NEUTROPHILS 82.5 % (40-80); PLATELET COUNT 142 10x3/uL (130-400); RDW 18.5 % (11.5-14.5); WBC 4.3 10x3/uL (4.8-10.8)
[2017-09-26 05:45] LABS: CALCIUM 8.1 mg/dL (8.5-10.1); CREATININE - SERUM 3.1 mg/dL (0.6-1.3)
[2017-09-26 05:47] LABS: ANION GAP 10.2 mmol/L (8-16); CARBON DIOXIDE 40.7 mmol/L (21.0-32.0); POTASSIUM - SERUM 2.9 mmol/L (3.5-5.1)
[2017-09-26 05:58] VITALS: BP 126/74
[2017-09-26 08:33] VITALS: BP 148/72
[2017-09-26 11:58] VITALS: BP 122/73
[2017-09-26 16:44] VITALS: BP 141/76
[2017-09-26 21:57] VITALS: BP 139/73
[2017-09-27 01:43] VITALS: BP 144/79
[2017-09-27 05:24] LABS: BASOPHILS 0.3 % (0-2); EOSINOPHILS 0.8 % (0-7); HEMATOCRIT 37.2 % (36.0-48.0); HEMOGLOBIN 11.3 g/dL (12-16); IMMATURE GRANULOCYTES 0.3 % (0-5); LYMPHOCYTES 15.9 % (15-50); MCH 27.6 pg (26.0-34.0); MCHC 30.4 g/dL (31.0-37.0); MEAN PLATELET VOLUME 11.3 fL (7.4-10.4); MONOCYTES 6.1 % (2-11); NEUTROPHILS 76.6 % (40-80); PLATELET COUNT 150 10x3/uL (130-400); RBC 4.09 10x6/uL (4.00-5.40); RDW 18.4 % (11.5-14.5); WBC 3.6 10x3/uL (4.8-10.8)
[2017-09-27 05:36] LABS: CALCIUM 8.1 mg/dL (8.5-10.1); CREATININE - SERUM 3.1 mg/dL (0.6-1.3)
[2017-09-27 05:38] LABS: ANION GAP 8.6 mmol/L (8-16); CARBON DIOXIDE 41.1 mmol/L (21.0-32.0); POTASSIUM - SERUM 3.7 mmol/L (3.5-5.1)
[2017-09-27 06:17] VITALS: BP 143/76
[2017-09-27 08:18] VITALS: BP 150/63
[2017-09-27 12:28] VITALS: BP 139/66
[2017-09-27 16:30] VITALS: BP 135/76
[2017-09-27 21:01] VITALS: BP 115/47
[2017-09-28 00:58] VITALS: BP 123/63
[2017-09-28 05:26] LABS: BASOPHILS 0.3 % (0-2); EOSINOPHILS 0.8 % (0-7); HEMATOCRIT 35.8 % (36.0-48.0); IMMATURE GRANULOCYTES 0.3 % (0-5); LYMPHOCYTES 15.5 % (15-50); MCH 27.7 pg (26.0-34.0); MCHC 30.7 g/dL (31.0-37.0); MCV 90.2 fL (80.0-100.0); MEAN PLATELET VOLUME 11.4 fL (7.4-10.4); MONOCYTES 5.2 % (2-11); NEUTROPHILS 77.9 % (40-80); PLATELET COUNT 161 10x3/uL (130-400); RBC 3.97 10x6/uL (4.00-5.40); RDW 18.4 % (11.5-14.5); WBC 3.7 10x3/uL (4.8-10.8)
[2017-09-28 05:47] LABS: ANION GAP 10.3 mmol/L (8-16); CALCIUM 7.8 mg/dL (8.5-10.1); CREATININE - SERUM 2.7 mg/dL (0.6-1.3); POTASSIUM - SERUM 3.5 mmol/L (3.5-5.1)
[2017-09-28 05:50] LABS: CARBON DIOXIDE 42.2 mmol/L (21.0-32.0)
[2017-09-28 06:33] VITALS: BP 157/65
[2017-09-28 09:13] VITALS: BP 74/55
[2017-09-28 12:46] VITALS: BP 102/69
[2017-09-28 16:43] VITALS: BP 153/61
[2017-09-28 20:00] VITALS: BP 152/95
[2017-09-29] VITALS: BP 154/51
[2017-09-29 04:00] VITALS: BP 158/55
[2017-09-29 06:20] LABS: BASOPHILS 0.3 % (0-2); EOSINOPHILS 0.5 % (0-7); HEMATOCRIT 36.6 % (36.0-48.0); HEMOGLOBIN 11.2 g/dL (12-16); IMMATURE GRANULOCYTES 0.3 % (0-5); LYMPHOCYTES 13.8 % (15-50); MCH 27.7 pg (26.0-34.0); MCHC 30.6 g/dL (31.0-37.0); MCV 90.4 fL (80.0-100.0); MEAN PLATELET VOLUME 11.3 fL (7.4-10.4); MONOCYTES 6.8 % (2-11); NEUTROPHILS 78.3 % (40-80); PLATELET COUNT 166 10x3/uL (130-400); RBC 4.05 10x6/uL (4.00-5.40); RDW 18.5 % (11.5-14.5); WBC 3.8 10x3/uL (4.8-10.8)
[2017-09-29 06:48] LABS: CALCIUM 8.4 mg/dL (8.5-10.1); CARBON DIOXIDE 39.6 mmol/L (21.0-32.0); CREATININE - SERUM 2.7 mg/dL (0.6-1.3); POTASSIUM - SERUM 3.6 mmol/L (3.5-5.1)
[2017-09-29 08:33] VITALS: BP 120/60
[2017-09-29 11:35] VITALS: BP 124/60
[2017-09-29 15:38] VITALS: BP 145/72
[2017-09-29 20:00] VITALS: BP 155/79
[2017-09-30 01:00] VITALS: BP 154/55
[2017-09-30 04:00] VITALS: BP 160/74
[2017-09-30 10:03] VITALS: BP 101/65
[2017-09-30 12:04] VITALS: BP 126/60
[2017-09-30 18:11] VITALS: BP 117/88
[2017-09-30 20:41] VITALS: BP 154/69
[2017-10-01 01:00] VITALS: BP 159/62
[2017-10-01 04:00] VITALS: BP 162/69
[2017-10-01 07:24] VITALS: BP 157/79
[2017-10-01] MEDS ORDERED: COREG6.25 MG PO (08:13)
[2017-10-01 11:43] VITALS: BP 167/77
[2017-10-01 16:39] VITALS: BP 156/79
== END 2017-10-01 19:46 | disposition home health service (06) | DRG 291 ==
LOC: D.ER 12:31 → D.MS 14:05 → D.M2 14:05
PROVIDERS: Emergency Medicine; Family Medicine
DX: I13.0 Hypertensive heart and chronic kidney disease with heart failure and stage 1 through stage 4 chronic kidney disease, or unspecified chronic kidney disease (principal); I50.23 Acute on chronic systolic (congestive) heart failure; N18.3 Chronic kidney disease, stage 3 (moderate); E66.9 Obesity, unspecified; I25.5 Ischemic cardiomyopathy; Z66 Do not resuscitate; Z86.73 Personal history of transient ischemic attack (TIA), and cerebral infarction without residual deficits; I42.0 Dilated cardiomyopathy; Z68.34 Body mass index [BMI] 34.0-34.9, adult

== ENCOUNTER 2017-10-05 21:20 | Emergency (ER) | payer MEDICARE ==
[2017-09-19 14:17] VITALS: BMI 33.6
[~2017-10-05 21:20] MED LIST changes: +ATIVAN0.5 MG PO; +COREG6.25 MG PO; +DIPHEDRYL25 MG PO; +LASIX80 MG PO; +METOLAZONE5 MG PO; +OMEPRAZOLE20 M1 PO; +OXYCODONE HCL5 MG PO; +ZOFRAN4 MG PO
== END 2017-10-06 00:27 | disposition home or self-care (01) ==
LOC: OBSVTIME → D.ER 21:20 → OBSVTIME 23:46 → D.EDHOLD 23:46 → D.MS 10-06 00:27 → D.ER 10-06 00:27
DX: J44.9 Chronic obstructive pulmonary disease, unspecified (principal); I50.9 Heart failure, unspecified; R09.02 Hypoxemia; N18.9 Chronic kidney disease, unspecified

== ENCOUNTER 2017-11-10 20:37 | Emergency (ER) | payer MEDICARE ==
[~2017-11-10] VITALS: Ht 154.9 cm; Wt 3.5 kg
[2017-11-10 20:41] VITALS: Ht 154.9 cm; Wt 3.5 kg
[2017-11-10 22:09] LABS: BASOPHILS 0.2 % (0-2); EOSINOPHILS 0.5 % (0-7); HEMATOCRIT 33.3 % (36.0-48.0); HEMOGLOBIN 10.5 g/dL (12-16); LYMPHOCYTES 20.9 % (15-50); MCH 28.8 pg (26.0-34.0); MCHC 31.5 g/dL (31.0-37.0); MCV 91.2 fL (80.0-100.0); MEAN PLATELET VOLUME 9.8 fL (7.4-10.4); MONOCYTES 5.2 % (2-11); NEUTROPHILS 73.2 % (40-80); RBC 3.65 10x6/uL (4.00-5.40); RDW 16.9 % (11.5-14.5); WBC 4.3 10x3/uL (4.8-10.8)
[2017-11-10 22:19] LABS: PLATELET COUNT 209 10x3/uL (130-400)
[2017-11-10 22:34] LABS: ALBUMIN 3.7 g/dL (3.4-5.0); ANION GAP 12.4 mmol/L (8-16); BILIRUBIN - TOTAL 0.55 mg/dL (0.2-1.3); POTASSIUM - SERUM 4.4 mmol/L (3.5-5.1); PROTEIN - SERUM 7.7 g/dL (6.4-8.2)
[2017-11-10] MEDS ORDERED: STERAPRED DS 1010 MG PO (23:57)
[2017-11-11 00:19] VITALS: BP 146/88
== END 2017-11-11 00:19 | disposition home or self-care (01) ==
LOC: D.ER 20:37
PROVIDERS: Family Medicine
DX: T44.7X5A Adverse effect of beta-adrenoreceptor antagonists, initial encounter (principal); Y92.019 Unspecified place in single-family (private) house as the place of occurrence of the external cause

== ENCOUNTER 2018-01-08 09:59 | Inpatient (IN) | payer MEDICARE ==
[~2018-01-08] VITALS: Ht 154.9 cm; Wt 50.5 kg
--- NOTE | ~2018-01-08 | HP ---
PATIENT: MYNOR AGUILAR MEDICAL RECORD: [id number] ACCOUNT: [id number] LOCATION:D.MS Vang2228 : 42 ADMISSION DATE: 01/08/18 HISTORY AND PHYSICAL EXAMINATION DATE OF ADMISSION: 01/08/2018 CHIEF COMPLAINT: Nausea for 3 weeks. HISTORY OF PRESENT ILLNESS: This is a 77-year-old -[place] female followed for years. She has a history of nonischemic cardiomyopathy with chronic congestive heart failure. She actually used to be on hospice and got out of hospice earlier this year to be hospitalized for an acute CHF exacerbation. She presents to the ER complaining of more nausea for 3 weeks. The patient states she gets nauseated and feels like she is just going to throw up, but she ends up just spitting up some phlegm. She has chronic shortness of breath. She is on home oxygen. She really does not have any fever or chills. Workup in the Emergency Department with a chest x-ray showed right lower lobe infiltrate and she was admitted for that. Her white count was 6200, hemoglobin was 11.7 and she was afebrile. PAST MEDICAL HISTORY: She has a nonischemic cardiomyopathy, last echo done in September of 2017 showing ejection fraction of 10% to 15%. Valvular structures were normal except severe mitral regurgitation, severe tricuspid regurgitation. She has chronic renal insufficiency, creatinine around 2.2. Hypertension, recurrent transudative pleural effusion, ventral hernia, left hemispheric CVA in 2017. PAST SURGICAL HISTORY: Partial colostomy for uncertain reasons, hysterectomy, tubal ligation, cholecystectomy, parathyroidectomy. ALLERGIES: TO ALL BETA BLOCKERS, HYDRALAZINE, ISOSORBIDE DINITRATE. MEDICATIONS: Home medications include Procardia XL 60 once a day, lorazepam 0.5 three times a day p.r.n. anxiety, potassium chloride 10 mEq once a day, furosemide 80 mg once a day. SOCIAL HISTORY: Lives with family. She is . HABITS: Former smoker, no alcohol or drugs. FAMILY HISTORY: Significant for hypertension. REVIEW OF SYSTEMS: GENERAL: She has chronic fatigue with shortness of breath on home O2. HEENT: No particular sinus or allergy problems. RESPIRATORY: No history of asthma or emphysema. CARDIAC: See above history. GASTROINTESTINAL: No history of diarrhea, constipation or significant reflux. GENITOURINARY: No significant problems there. MUSCULOSKELETAL: No significant arthritic aches and pains. NEUROLOGIC: No migraines. No seizures. PSYCHIATRIC: She has some depression and anxiety. PHYSICAL EXAMINATION: VITAL SIGNS: Temperature 97.4, heart rate was 46, respirations 17, blood HISTORY AND PHYSICAL [id number] MYNOR AGUILAR pressure 156/69, O2 saturation 93%. GENERAL: She is awake and alert, sitting up on the side of her hospital bed. LABORATORY DATA: CBC with a white count of 6200, hemoglobin 11.7, hematocrit 35.6, normal platelets. Basic metabolic panel is all okay except BUN 73, creatinine 2.2. Liver functions, her total bilirubin is 1.63. Other liver functions are normal. Troponin 0.038. Lipase 168. Urinalysis yellow, slightly cloudy, 3+ protein, trace blood, few bacteria. ProBNP is over 48,000. Chest x-ray was read as with mild right basilar atelectasis or infiltrate. ASSESSMENT: 1. Right lower lobe pneumonia. 2. Nausea for 3 weeks. 3. History of nonischemic cardiomyopathy with ejection fraction 10% to 15% from echo in September of this year. PLAN: She is admitted, started on antibiotics. I am going to consult GI for her persistent nausea that seems to be bigger problem to her right now. We will continue her other regular medications. TRANSINT:[id number] Voice Confirmation ID: [id number] DOCUMENT ID: [id number] ANTHONY CATHERINE MD at 1459 CC: [id number] DICTATION DATE: 01/09/18 1307 CITY SANITARIAN: 01/09/18 1408 ADM IN [place] [id number] [place] [address]
[~2018-01-08 09:59] MED LIST changes: +STERAPRED DS 1010 MG PO
[2018-01-08 10:54] LABS: BASOPHILS 0.5 % (0-2); EOSINOPHILS 0.6 % (0-7); HEMATOCRIT 35.6 % (36.0-48.0); HEMOGLOBIN 11.7 g/dL (12-16); IMMATURE GRANULOCYTES 0.2 % (0-5); LYMPHOCYTES 16.7 % (15-50); MCH 29.7 pg (26.0-34.0); MCHC 32.9 g/dL (31.0-37.0); MCV 90.4 fL (80.0-100.0); MEAN PLATELET VOLUME 9.9 fL (7.4-10.4); MONOCYTES 4.3 % (2-11); NEUTROPHILS 77.7 % (40-80); PLATELET COUNT 250 10x3/uL (130-400); RBC 3.94 10x6/uL (4.00-5.40); WBC 6.2 10x3/uL (4.8-10.8)
[2018-01-08 11:00] VITALS: BP 145/85
[2018-01-08 12:00] VITALS: BP 162/91
[2018-01-08 12:08] LABS: ALBUMIN 3.5 g/dL (3.4-5.0); ANION GAP 19.5 mmol/L (8-16); BILIRUBIN - TOTAL 1.63 mg/dL (0.2-1.3); CREATININE - SERUM 2.2 mg/dL (0.6-1.3); POTASSIUM - SERUM 4.5 mmol/L (3.5-5.1); PROTEIN - SERUM 6.8 g/dL (6.4-8.2); TROPONIN-I 0.038 ng/mL (0.000-0.060)
[2018-01-08 12:17] LABS: CALCIUM 8.5 mg/dL (8.5-10.1)
[2018-01-08 13:00] VITALS: BP 156/91
[2018-01-08 13:08] LABS: APPEARANCE SL CLDY (CLEAR); BILIRUBIN NEGATIVE (NEGATIVE); COLOR YELLOW (YELLOW); GLUCOSE NEGATIVE (NEGATIVE); KETONE NEGATIVE (NEGATIVE); NITRITE NEGATIVE (NEGATIVE); PROTEIN 3+ mg/dL (NEGATIVE); SPECIFIC GRAVITY 1.015 (1.005-1.020)
[2018-01-08 13:09] LABS: AMORPHOUS SEDIMENT >1+ /lpf (NONE SEEN); BACTERIA FEW /hpf (NONE SEEN); EPITHELIAL CELLS OCC /hpf (0-5); MUCUS <1+ /lpf (NONE SEEN); RED CELLS - URINE OCC /hpf (0-5)
[2018-01-08] MEDS ORDERED: NIFEDIPINE ER60 MG PO (16:31)
[2018-01-08 16:41] VITALS: BP 156/69; Ht 154.9 cm; Wt 50.5 kg
[2018-01-08 20:00] VITALS: BP 151/77
[2018-01-09] VITALS: BP 136/85
[2018-01-09 04:00] VITALS: BP 144/69
[2018-01-09 06:51] VITALS: BP 160/85
[2018-01-09 12:49] VITALS: BP 135/75
[2018-01-09 20:00] VITALS: BP 150/72
[2018-01-10] VITALS: BP 137/66
[2018-01-10 04:00] VITALS: BP 140/69
[2018-01-10 05:53] LABS: BASOPHILS 0.2 % (0-2); EOSINOPHILS 0.5 % (0-7); HEMATOCRIT 31.6 % (36.0-48.0); HEMOGLOBIN 10.3 g/dL (12-16); IMMATURE GRANULOCYTES 0.3 % (0-5); LYMPHOCYTES 8.3 % (15-50); MCH 29.5 pg (26.0-34.0); MCHC 32.6 g/dL (31.0-37.0); MCV 90.5 fL (80.0-100.0); MEAN PLATELET VOLUME 9.7 fL (7.4-10.4); MONOCYTES 6.1 % (2-11); NEUTROPHILS 84.6 % (40-80); RBC 3.49 10x6/uL (4.00-5.40); WBC 6.1 10x3/uL (4.8-10.8)
[2018-01-10 05:59] LABS: PLATELET COUNT 164 10x3/uL (130-400)
[2018-01-10 06:02] LABS: ANION GAP 13.7 mmol/L (8-16); CALCIUM 7.9 mg/dL (8.5-10.1); CARBON DIOXIDE 23.8 mmol/L (21.0-32.0); CREATININE - SERUM 2.3 mg/dL (0.6-1.3)
[2018-01-10 06:05] LABS: POTASSIUM - SERUM 3.5 mmol/L (3.5-5.1)
[2018-01-10 06:21] LABS: ALBUMIN 3.3 g/dL (3.4-5.0); BILIRUBIN - DIRECT 0.39 mg/dL (0.00-0.30); BILIRUBIN - INDIRECT 0.32 mg/dL (0.00-1.00); BILIRUBIN - TOTAL 0.71 mg/dL (0.2-1.3); CHOL - HDL RATIO 3.2 ratio (2.3-4.1); LDL-HDL RATIO 1.7 ratio (1.5-3.5); PROTEIN - SERUM 6.5 g/dL (6.4-8.2)
[2018-01-10 11:28] VITALS: BP 140/70
[2018-01-10 15:43] VITALS: BP 146/63
[2018-01-10 21:04] VITALS: BP 135/66
[2018-01-11 04:00] VITALS: BP 142/61
[2018-01-11 06:20] LABS: BASOPHILS 0.2 % (0-2); EOSINOPHILS 0.8 % (0-7); HEMATOCRIT 32.3 % (36.0-48.0); HEMOGLOBIN 10.5 g/dL (12-16); LYMPHOCYTES 9.6 % (15-50); MCH 29.5 pg (26.0-34.0); MCHC 32.5 g/dL (31.0-37.0); MCV 90.7 fL (80.0-100.0); MEAN PLATELET VOLUME 9.3 fL (7.4-10.4); MONOCYTES 5.3 % (2-11); NEUTROPHILS 84.1 % (40-80); PLATELET COUNT 154 10x3/uL (130-400); RBC 3.56 10x6/uL (4.00-5.40); RDW 17.2 % (11.5-14.5); WBC 5.1 10x3/uL (4.8-10.8)
[2018-01-11 06:37] LABS: ANION GAP 12.6 mmol/L (8-16); CALCIUM 8.3 mg/dL (8.5-10.1); CARBON DIOXIDE 24.8 mmol/L (21.0-32.0); CREATININE - SERUM 2.1 mg/dL (0.6-1.3); POTASSIUM - SERUM 3.4 mmol/L (3.5-5.1)
[2018-01-11 08:57] VITALS: BP 97/55
[2018-01-11 20:00] VITALS: BP 145/87
[2018-01-12 03:57] VITALS: BP 150/61
[2018-01-12 06:40] LABS: BASOPHILS 0.2 % (0-2); EOSINOPHILS 0.5 % (0-7); HEMATOCRIT 32.7 % (36.0-48.0); HEMOGLOBIN 10.7 g/dL (12-16); IMMATURE GRANULOCYTES 0.2 % (0-5); LYMPHOCYTES 13.3 % (15-50); MCH 29.7 pg (26.0-34.0); MCHC 32.7 g/dL (31.0-37.0); MCV 90.8 fL (80.0-100.0); MEAN PLATELET VOLUME 8.8 fL (7.4-10.4); MONOCYTES 5.7 % (2-11); NEUTROPHILS 80.1 % (40-80); PLATELET COUNT 171 10x3/uL (130-400); WBC 5.8 10x3/uL (4.8-10.8)
[2018-01-12 06:54] LABS: CALCIUM 8.7 mg/dL (8.5-10.1); CARBON DIOXIDE 24.9 mmol/L (21.0-32.0); CREATININE - SERUM 2.5 mg/dL (0.6-1.3); POTASSIUM - SERUM 3.9 mmol/L (3.5-5.1)
[2018-01-12 09:10] VITALS: BP 144/83
[2018-01-12 13:39] VITALS: BP 131/74
[2018-01-12 20:00] VITALS: BP 154/77
[2018-01-13 05:49] VITALS: BP 128/66
[2018-01-13 06:11] LABS: BASOPHILS 0.2 % (0-2); EOSINOPHILS 0.8 % (0-7); HEMATOCRIT 33.2 % (36.0-48.0); HEMOGLOBIN 10.9 g/dL (12-16); IMMATURE GRANULOCYTES 0.2 % (0-5); LYMPHOCYTES 14.4 % (15-50); MCH 30.2 pg (26.0-34.0); MCHC 32.8 g/dL (31.0-37.0); MEAN PLATELET VOLUME 9.2 fL (7.4-10.4); MONOCYTES 4.2 % (2-11); NEUTROPHILS 80.2 % (40-80); PLATELET COUNT 160 10x3/uL (130-400); RBC 3.61 10x6/uL (4.00-5.40); RDW 18.4 % (11.5-14.5); WBC 5.2 10x3/uL (4.8-10.8)
[2018-01-13 06:16] LABS: ANION GAP 13.7 mmol/L (8-16); CALCIUM 8.4 mg/dL (8.5-10.1); CARBON DIOXIDE 26.8 mmol/L (21.0-32.0); CREATININE - SERUM 2.2 mg/dL (0.6-1.3); POTASSIUM - SERUM 3.5 mmol/L (3.5-5.1)
[2018-01-13] MEDS ORDERED: COLACE100 MG PO (08:37)
[2018-01-13] MEDS ORDERED: MIRALAX17 GM PO (08:38)
[2018-01-13] MEDS ORDERED: PEPCID20 MG PO (08:38)
[2018-01-13 09:53] VITALS: BP 147/78
[2018-01-13 13:08] VITALS: BP 143/89
== END 2018-01-13 15:18 | disposition home or self-care (01) | DRG 194 ==
LOC: D.ER 09:59 → D.MS 14:12 → D.EDHOLD 14:12 → D.MS 14:42
PROVIDERS: Emergency Medicine; Family Medicine; Internal Medicine Gastroenterology
DX: J18.9 Pneumonia, unspecified organism (principal); I42.0 Dilated cardiomyopathy; I13.0 Hypertensive heart and chronic kidney disease with heart failure and stage 1 through stage 4 chronic kidney disease, or unspecified chronic kidney disease; I50.22 Chronic systolic (congestive) heart failure; R11.2 Nausea with vomiting, unspecified; N18.3 Chronic kidney disease, stage 3 (moderate); K21.9 Gastro-esophageal reflux disease without esophagitis

== ENCOUNTER 2018-01-14 15:33 | Inpatient (IN) | payer MEDICARE ==
[~2018-01-14] VITALS: Ht 154.9 cm; Wt 54.7 kg
--- NOTE | ~2018-01-14 | HP ---
PATIENT: MYNOR AGUILAR MEDICAL RECORD: [id number] ACCOUNT: [id number] LOCATION:[address] : 44 ADMISSION DATE: 01/14/18 PCP: ANTHONY CATHERINE MD HISTORY AND PHYSICAL EXAMINATION DATE OF ADMISSION TO [facility]: 01/15/2018 CHIEF COMPLAINT: Shortness of breath and dyspnea on exertion. HISTORY OF PRESENT ILLNESS: This is a 77-year-old female with a long history of nonischemic cardiomyopathy and congestive heart failure. She was just discharged from the hospital with diagnoses of pneumonia and nausea. She comes back in, complained of increased shortness of breath, dyspnea on exertion. No fever or chills. She is admitted for [id number] congestive heart failure, history of nonischemic cardiomyopathy, last echo done in September of this year showing ejection fraction 10% to 15%. Valvular structures were normal except severe mitral regurg and severe tricuspid regurg. She has chronic renal insufficiency with creatinine around 2.2. She has hypertension, ventral hernia, left hemispheric CVA in 2017. PAST SURGICAL HISTORY: Partial colectomy for uncertain reasons, hysterectomy, tubal ligation, cholecystectomy, parathyroidectomy. ALLERGIES: TO ALL BETA BLOCKERS, HYDRALAZINE, ISOSORBIDE DINITRATE. HOME MEDICATIONS: Include Colace 200 mg at bedtime, MiraLax 1 scoop twice a day, Pepcid 10 mg twice a day, Procardia-XL 60 once a day, Ativan 0.5 t.i.d. p.r.n. anxiety, furosemide 80 mg a day, potassium 10 mEq a day. SOCIAL HISTORY: She lives with family. She is . HABITS: Former smoker. No alcohol or drugs. FAMILY HISTORY: Hypertension. REVIEW OF SYSTEMS: GENERAL: Chronic fatigue with shortness of breath, on home O2. They got worse. HEENT: No sinus or allergy problems. RESPIRATORY: No history of asthma or emphysema. CARDIAC: See above history. GASTROINTESTINAL: Evaluated by Dr. Shell bullock in the last week. She is not a candidate for EGD. She has had some chronic nausea. No history of diarrhea, constipation or significant reflux. GENITOURINARY: No significant problems there. MUSCULOSKELETAL: No significant arthritic aches or pains. NEUROLOGIC: No migraines or seizures. PSYCHIATRIC: She has had some depression and anxiety. PHYSICAL EXAMINATION: VITAL SIGNS: Temperature 98.1, pulse 78, respirations 16, blood pressure 108/55, O2 sat 95%. GENERAL: She does not appear to be in acute distress. She is lying comfortably in bed, but she gets short of breath when she gets up and walks. HEENT: Unremarkable. NECK: Supple. HISTORY AND PHYSICAL [id number] MYNOR AGUILAR HEART: Regular rate and rhythm without murmur. LUNGS: Fairly clear. ABDOMEN: Soft, nontender. EXTREMITIES: No edema. LABORATORY DATA: CBC with a white count of 5500, hemoglobin 10.6. Sodium 135, potassium 4.4, chloride 100, CO2 23.6, BUN 65, creatinine 2.2, calcium 8.3. Liver functions are all normal. ProBNP 44,843. ASSESSMENT: 1. Acute systolic on chronic systolic heart failure. 2. Nonischemic cardiomyopathy. PLAN: We will admit, ask cardiology to see and adjust medications. Other tests or procedures as warranted. TRANSINT:[id number] Voice Confirmation ID: [id number] DOCUMENT ID: [id number] ANTHONY CATHERINE MD at 2028 CC: [id number] DICTATION DATE: 01/16/18 1146 TANK HOUSE OPERATOR HELPER: 01/16/18 1207 DIS IN 01/19/18 [id number] [place] [address]
[~2018-01-14 15:33] MED LIST changes: +COLACE100 MG PO; +MIRALAX17 GM PO; +PEPCID20 MG PO
[2018-01-14 17:19] LABS: BASOPHILS 1.3 % (0-2); EOSINOPHILS 0.1 % (0-7); HEMATOCRIT 34.8 % (36.0-48.0); HEMOGLOBIN 11.6 g/dL (12-16); IMMATURE GRANULOCYTES 0.1 % (0-5); LYMPHOCYTES 7.7 % (15-50); MCH 30.1 pg (26.0-34.0); MCHC 33.3 g/dL (31.0-37.0); MCV 90.2 fL (80.0-100.0); MEAN PLATELET VOLUME 9.2 fL (7.4-10.4); MONOCYTES 7.8 % (2-11); PLATELET COUNT 170 10x3/uL (130-400); RBC 3.86 10x6/uL (4.00-5.40); WBC 6.9 10x3/uL (4.8-10.8)
[2018-01-14 17:20] LABS: INR 1.47 (0.85-1.17); PROTIME 17.3 SECONDS (11.6-15.0)
[2018-01-14 17:21] LABS: APTT 45.2 SECONDS (22.8-39.4)
[2018-01-14 17:34] LABS: ALBUMIN 3.7 g/dL (3.4-5.0); ALKALINE PHOSPHATASE 106 U/L (46-116); ALT (SGPT) 52 U/L (10-68); CALC OSMOLALITY 283 mosm/kg (275-300); CALCIUM 8.7 mg/dL (8.5-10.1); CARBON DIOXIDE 21.7 mmol/L (21.0-32.0); CHLORIDE - SERUM 98 mmol/L (98-107); CREATININE - SERUM 2.3 mg/dL (0.6-1.3); GLUCOSE 105 mg/dL (74-106); POTASSIUM - SERUM 5.5 mmol/L (3.5-5.1); PROTEIN - SERUM 7.1 g/dL (6.4-8.2); SODIUM 132 mmol/L (136-145); UREA NITROGEN 66 mg/dL (7-18); eGFR NON AFRICAN AMERICAN 22 mL/min (90-120)
[2018-01-14 17:44] LABS: CKMB 2.3 U/L (0.0-3.6); CREATINE KINASE 60 UL (21-215); TROPONIN-I 0.048 ng/mL (0.000-0.060)
[2018-01-14 18:21] LABS: PRO BNP 60225 pg/mL (0-450)
[2018-01-14 19:00] VITALS: BP 156/92
[2018-01-14 20:00] VITALS: BP 164/77
[2018-01-14 21:57] VITALS: BP 131/73
[2018-01-15] VITALS: BP 149/82
[2018-01-15 04:00] VITALS: BP 134/73
[2018-01-15 05:55] LABS: ALBUMIN 3.2 g/dL (3.4-5.0); CALC OSMOLALITY 287 mosm/kg (275-300); CALCIUM 8.3 mg/dL (8.5-10.1); CARBON DIOXIDE 23.6 mmol/L (21.0-32.0); CHLORIDE - SERUM 100 mmol/L (98-107); CREATININE - SERUM 2.2 mg/dL (0.6-1.3); GLUCOSE 79 mg/dL (74-106); SODIUM 135 mmol/L (136-145); UREA NITROGEN 65 mg/dL (7-18); eGFR NON AFRICAN AMERICAN 23 mL/min (90-120)
[2018-01-15 06:02] LABS: POTASSIUM - SERUM 4.4 mmol/L (3.5-5.1)
[2018-01-15 06:41] LABS: BASOPHILS 0.2 % (0-2); EOSINOPHILS 0.2 % (0-7); HEMATOCRIT 32.8 % (36.0-48.0); HEMOGLOBIN 10.6 g/dL (12-16); IMMATURE GRANULOCYTES 0.4 % (0-5); MCH 29.4 pg (26.0-34.0); MCHC 32.3 g/dL (31.0-37.0); MCV 90.9 fL (80.0-100.0); MEAN PLATELET VOLUME 10.8 fL (7.4-10.4); MONOCYTES 6.4 % (2-11); NEUTROPHILS 79.8 % (40-80); PLATELET COUNT 167 10x3/uL (130-400); RBC 3.61 10x6/uL (4.00-5.40); RDW 18.1 % (11.5-14.5); WBC 5.5 10x3/uL (4.8-10.8)
[2018-01-15 06:42] LABS: ALKALINE PHOSPHATASE 94 U/L (46-116); ALT (SGPT) 48 U/L (10-68); CKMB 2.5 U/L (0.0-3.6); CREATINE KINASE 45 UL (21-215); PROTEIN - SERUM 6.5 g/dL (6.4-8.2); TROPONIN-I 0.049 ng/mL (0.000-0.060)
[2018-01-15 07:04] LABS: PRO BNP 44843 pg/mL (0-450)
[2018-01-15 08:13] VITALS: BP 110/58
[2018-01-15 12:46] VITALS: BP 118/55
[2018-01-15 14:28] VITALS: Ht 154.9 cm; Wt 54.7 kg
[2018-01-15 16:04] VITALS: BP 108/55
[2018-01-15 21:56] VITALS: BP 139/89
[2018-01-16 00:45] VITALS: BP 143/92
[2018-01-16 04:16] VITALS: BP 149/81
[2018-01-16 07:47] VITALS: BP 137/83
[2018-01-16 11:32] VITALS: BP 122/68
[2018-01-16 15:34] VITALS: BP 136/82
[2018-01-16 20:46] VITALS: BP 136/76
[2018-01-17 00:30] VITALS: BP 143/95
[2018-01-17 04:30] VITALS: BP 90/52
[2018-01-17 08:08] VITALS: BP 139/79
[2018-01-17 11:25] VITALS: BP 156/81
[2018-01-17 15:35] VITALS: BP 121/64
[2018-01-17 20:58] VITALS: BP 126/70
[2018-01-18 04:30] VITALS: BP 116/70
[2018-01-18 07:42] VITALS: BP 125/71
[2018-01-18 11:28] VITALS: BP 125/76
[2018-01-18 15:40] VITALS: BP 128/74
[2018-01-18] MEDS ORDERED: LASIX INJ40 MG/4 ML IV (16:16)
[2018-01-18 20:12] VITALS: BP 127/69
[2018-01-19 00:43] VITALS: BP 139/80
[2018-01-19 05:08] LABS: ANION GAP 11.9 mmol/L (8-16); CALCIUM 7.8 mg/dL (8.5-10.1); CARBON DIOXIDE 25.3 mmol/L (21.0-32.0); POTASSIUM - SERUM 4.2 mmol/L (3.5-5.1)
[2018-01-19 05:51] VITALS: BP 130/75
[2018-01-19 07:49] VITALS: BP 138/77
== END 2018-01-19 10:42 | DRG 291 ==
LOC: D.ER 15:33 → D.M2 21:06 → D.SDCHOLD 01-18 14:51 → D.M2 01-18 14:55
PROVIDERS: Family Medicine
DX: I13.0 Hypertensive heart and chronic kidney disease with heart failure and stage 1 through stage 4 chronic kidney disease, or unspecified chronic kidney disease (principal); J18.9 Pneumonia, unspecified organism; I50.23 Acute on chronic systolic (congestive) heart failure; J44.0 Chronic obstructive pulmonary disease with (acute) lower respiratory infection; I42.0 Dilated cardiomyopathy; Z86.73 Personal history of transient ischemic attack (TIA), and cerebral infarction without residual deficits; Z87.891 Personal history of nicotine dependence; I44.7 Left bundle-branch block, unspecified; N18.3 Chronic kidney disease, stage 3 (moderate); Z66 Do not resuscitate

== ENCOUNTER 2018-01-19 11:33 | Inpatient (IN) | payer MEDICARE ==
[~2018-01-19] VITALS: Ht 154.9 cm; Wt 57.4 kg
--- NOTE | ~2018-01-19 | RHP ---
PATIENT: MYNOR AGUILRA MEDICAL RECORD: [id number] ACCOUNT: [id number] [facility] [id number] : 44 ADMISSION DATE: 01/19/18 REHABILITATION HISTORY AND PHYSICAL EXAMINATION POST ADMISSION PHYSICIAN EXAMINATION POST-ADMISSION PHYSICAL EXAM AND HISTORY AND PHYSICAL DATE OF ADMISSION: 01/19/2018 ADMITTING DIAGNOSIS: Late effect of CVA. HISTORY OF PRESENT ILLNESS: The patient admitted to inpatient rehab with late effect of cerebrovascular accident. She is a 77-year-old female patient who presented to ED with shortness of breath and dyspnea on exertion. She was just discharged on 01/13/2018 from the hospital with pneumonia and nausea. She was admitted for [id number]-td-[id number] congestive heart failure, history of nonischemic cardiomyopathy. Last echo done in September of this year showed an ejection fraction of 10% to 15%, valvular structures were normal except for severe mitral regurg and severe triscuspid regurg. She has chronic renal insufficiency with creatinine of 2.2. She has hypertension, ventral hernia, left hemispheric CVA in 2017. She never received acute rehabilitation at that time. She has noted expressive aphasia. She has noted weakness, fatigues easily with exertion. She wears O2 at 2 liters via nasal cannula. ProBNP was 60,000 upon admission. I have slowly been diuresing her with Lasix 40 mg IV q.12 hours. She is currently on telemetry. She has had a history of V-tach in the past. She lives at home with her and her grandson. She does use a single point cane for mobility, was independent with her ADLs. Barrier to discharge included that she was recently discharged home and returned the following day with increasing weakness, debility, self-care deficit, set up for home health therapy services. She needs cardiac monitoring, monitor O2 and increased O2 needs at times, especially with therapy, continued IV therapy for diuresing and elevated proBNP and CHF. She is currently mod assist to max assist for ADLs and mod assist to max assist for mobility. She plans to be able to return home at her prior level of functioning after an acute inpatient rehab stay. COMORBIDITIES: In this patient include kquqg-om-[id number] congestive heart failure, CHF, expressive aphasia, CVA, chronic kidney disease, bradycardia with a bundle branch block, severe heart failure secondary to decreased ejection fraction, pulmonary edema. PAST MEDICAL HISTORY: Significant for CVA, hypertension, CHF, COPD, acid reflux and anxiety. PAST SURGICAL HISTORY: Includes partial colectomy, hysterectomy, tubal ligation, cholecystectomy, parathyroidectomy, tonsillectomy and adenoidectomy, colon resection and ventral hernia repair. ALLERGIES: ISOSORBIDE, LABETALOL, CLAVULANIC ACID, AMOXICILLIN, METOPROLOL AND HYDRALAZINE. MEDICATIONS: Current medications include Lunesta 2 mg p.o. at bedtime. We are going to switch her over to some oral Lasix and see how she does. Potassium 10 mEq daily, Procardia 60 mg daily, Pepcid 10 mg daily, polyethylene glycol 17 grams in 8 ounces of water daily. She is on lorazepam 0.5 mg q.4 hours p.r.n. HISTORY AND PHYSICAL [id number] PEPPERS,MYNOR ELANE and Colace 200 mg at bedtime. HABITS: No current alcohol or tobacco use. FAMILY HISTORY: Noncontributory. SOCIAL HISTORY: The patient hopes to return back home once again to live with her and her grandson. REVIEW OF SYSTEMS: GENERAL: Does complain of weakness and fatigue. HEENT: Denies cold, cough, or congestion. CARDIOVASCULAR: Denies chest pain. PHYSICAL EXAMINATION: VITAL SIGNS: Stable, afebrile. GENERAL: A well-developed female who is in no acute distress. She is alert upon exam. She does have some problems expressing answers to certain questions. HEENT: Normocephalic and atraumatic. Mucosa moist. NECK: Supple. No lymphadenopathy. LUNGS: Clear at this time. HEART: Regular rate and rhythm. ABDOMEN: Benign. EXTREMITIES: No clubbing, cyanosis or edema. NEUROLOGIC: She does have noted weakness and also some problems with speech. LABORATORY DATA: White count is 5.3, H&H of 12 and 36, and platelet count is noted to be 199. Her sodium is 137, potassium 4.4, BUN and creatinine of 56 and 1.8, and blood sugar is noted to be 98. ASSESSMENT: This is a 77-year-old female patient admitted to rehab with a working diagnosis of late effects of cerebrovascular accident. The patient has potential to make improvement. We instituted the following multidisciplinary therapies included, but not limited to physical, occupational, respiratory, speech, nutritional services, prosthetics and orthotics. Given her complex medical condition and risk for more complications, rehabilitation services cannot be provided at a low level of care such as a jail facility. PLAN: 1. Admit to [facility] rehab for intensive inpatient therapy to include the following disciplines: A. Physical therapy to improve gait, all transfer skills and bed mobility to a modified independent level. C. Case management to assist with discharge planning and placement options. D. Nutrition to assist with nutritional needs. E. Rehabilitation nursing to assist in monitoring the patient's underlying medical conditions and to assist with any type of bowel or bladder management. 2. The patient's current medications and medical care will be continued. 3. The patient will be placed on standard fall precautions. 4. The patient's estimated length of stay is approximately 7-10 days. 5. We will watch her closely on her Lasix since we will be changing over to p.o. We will continue to watch her O2 requirements, her daily weights, strict I's and O's. I am going to follow up with care team today at lunch. TRANSINT:[id number] Voice Confirmation ID: [id number] DOCUMENT ID: [id number] HISTORY AND PHYSICAL [id number] MYNOR AGUILAR notes whether there has been none or any medical/functional change since admission: - No change since preadmission screen. SAIDA attests patient continues to be appropriate for IRF: - Continues to be appropriate. YOUSIF DOSHI MD at 1733 CC: [id number] DICTATION DATE: 01/20/18840 ASSEMBLING FABRICATOR: 01/20/18919 DIS IN 01/29/18 [facility] [address] [place] [address]
[~2018-01-19 11:33] MED LIST changes: +LASIX INJ40 MG/4 ML IV
[2018-01-19 12:52] VITALS: BP 144/73; BMI 22.7
[2018-01-19 19:00] VITALS: BP 131/77
[2018-01-20 07:20] LABS: BASOPHILS 0.2 % (0-2); EOSINOPHILS 1.5 % (0-7); HEMATOCRIT 36.8 % (36.0-48.0); HEMOGLOBIN 11.8 g/dL (12-16); IMMATURE GRANULOCYTES 0.2 % (0-5); LYMPHOCYTES 16.1 % (15-50); MCH 30.4 pg (26.0-34.0); MCHC 32.1 g/dL (31.0-37.0); MCV 94.8 fL (80.0-100.0); MEAN PLATELET VOLUME 9.3 fL (7.4-10.4); MONOCYTES 4.5 % (2-11); NEUTROPHILS 77.5 % (40-80); PLATELET COUNT 199 10x3/uL (130-400); RBC 3.88 10x6/uL (4.00-5.40); RDW 19.2 % (11.5-14.5); WBC 5.3 10x3/uL (4.8-10.8)
[2018-01-20 07:48] LABS: ANION GAP 13.5 mmol/L (8-16); CALCIUM 8.1 mg/dL (8.5-10.1); CARBON DIOXIDE 23.9 mmol/L (21.0-32.0); CREATININE - SERUM 1.8 mg/dL (0.6-1.3); POTASSIUM - SERUM 4.4 mmol/L (3.5-5.1)
[2018-01-20 07:51] VITALS: BP 142/77
[2018-01-20 13:55] VITALS: Ht 154.9 cm; Wt 57.4 kg
[2018-01-20 20:59] VITALS: BP 140/79
[2018-01-21 08:24] VITALS: BP 119/70
[2018-01-21 19:00] VITALS: BP 134/75
[2018-01-22 07:04] LABS: HEMATOCRIT 36.2 % (36.0-48.0); HEMOGLOBIN 11.8 g/dL (12-16); LYMPHOCYTES 17.5 % (15-50); MCH 30.4 pg (26.0-34.0); MCHC 32.6 g/dL (31.0-37.0); MCV 93.3 fL (80.0-100.0); NEUTROPHILS 78.6 % (40-80); PLATELET COUNT 205 10x3/uL (130-400); RBC 3.88 10x6/uL (4.00-5.40); RDW 18.8 % (11.5-14.5); WBC 4.5 10x3/uL (4.8-10.8)
[2018-01-22 07:16] LABS: ANION GAP 16.1 mmol/L (8-16); CALCIUM 8.4 mg/dL (8.5-10.1); CARBON DIOXIDE 21.8 mmol/L (21.0-32.0); POTASSIUM - SERUM 4.9 mmol/L (3.5-5.1)
[2018-01-22 08:00] VITALS: BP 143/77
[2018-01-22 19:00] VITALS: BP 142/66
[2018-01-23 08:00] VITALS: BP 143/83
[2018-01-23 21:00] VITALS: BP 157/80
[2018-01-24 08:00] VITALS: BP 128/64
[2018-01-24 19:40] VITALS: BP 136/77
[2018-01-25 06:27] LABS: BASOPHILS 0.2 % (0-2); EOSINOPHILS 0.2 % (0-7); HEMATOCRIT 35.9 % (36.0-48.0); HEMOGLOBIN 11.7 g/dL (12-16); IMMATURE GRANULOCYTES 0.2 % (0-5); LYMPHOCYTES 11.1 % (15-50); MCH 30.2 pg (26.0-34.0); MCHC 32.6 g/dL (31.0-37.0); MCV 92.8 fL (80.0-100.0); MONOCYTES 7.3 % (2-11); RBC 3.87 10x6/uL (4.00-5.40); RDW 18.1 % (11.5-14.5); WBC 4.9 10x3/uL (4.8-10.8)
[2018-01-25 06:41] LABS: PLATELET COUNT 253 10x3/uL (130-400)
[2018-01-25 06:45] LABS: ANION GAP 17.5 mmol/L (8-16); CALCIUM 8.5 mg/dL (8.5-10.1); CARBON DIOXIDE 20.3 mmol/L (21.0-32.0); CREATININE - SERUM 2.4 mg/dL (0.6-1.3); POTASSIUM - SERUM 4.8 mmol/L (3.5-5.1)
[2018-01-25 07:48] VITALS: BP 142/86
[2018-01-25 19:00] VITALS: BP 130/81
[2018-01-26 08:57] VITALS: BP 154/67
[2018-01-26 19:00] VITALS: BP 131/75
[2018-01-27 08:00] VITALS: BP 133/73
[2018-01-27 19:29] VITALS: BP 117/81
[2018-01-28 08:19] VITALS: BP 140/76
[2018-01-28 19:00] VITALS: BP 127/71
[2018-01-29 08:05] VITALS: BP 124/62
[2018-01-29] MEDS ORDERED: LASIX40 MG PO (08:56)
== END 2018-01-29 15:03 | disposition home health service (06) | DRG 57 ==
LOC: D.REHAB 11:33
PROVIDERS: Emergency Medicine
DX: I69.30 Unspecified sequelae of cerebral infarction (principal); I13.0 Hypertensive heart and chronic kidney disease with heart failure and stage 1 through stage 4 chronic kidney disease, or unspecified chronic kidney disease; R47.01 Aphasia; J81.1 Chronic pulmonary edema; N18.9 Chronic kidney disease, unspecified; Z66 Do not resuscitate; I50.9 Heart failure, unspecified; I45.4 Nonspecific intraventricular block; J44.9 Chronic obstructive pulmonary disease, unspecified; K21.9 Gastro-esophageal reflux disease without esophagitis

== ENCOUNTER 2018-02-18 13:30 | Inpatient (IN) | payer MEDICARE ==
[~2018-02-18] VITALS: Ht 154.9 cm; Wt 61.5 kg
[2018-02-18 14:16] LABS: HEMATOCRIT 45.6 % (36.0-48.0); HEMOGLOBIN 14.7 g/dL (12-16); LYMPHOCYTES 8.8 % (15-50); MCH 30.5 pg (26.0-34.0); MCHC 32.2 g/dL (31.0-37.0); MCV 94.6 fL (80.0-100.0); NEUTROPHILS 85.4 % (40-80); PLATELET COUNT 192 10x3/uL (130-400); RBC 4.82 10x6/uL (4.00-5.40); RDW 17.1 % (11.5-14.5); WBC 5.1 10x3/uL (4.8-10.8)
[2018-02-18 14:28] LABS: ALBUMIN 3.2 g/dL (3.4-5.0); ANION GAP 14.6 mmol/L (8-16); BILIRUBIN - TOTAL 1.27 mg/dL (0.2-1.3); CALCIUM 8.7 mg/dL (8.5-10.1); CARBON DIOXIDE 26.7 mmol/L (21.0-32.0); CREATININE - SERUM 2.5 mg/dL (0.6-1.3); POTASSIUM - SERUM 4.3 mmol/L (3.5-5.1); PROTEIN - SERUM 6.7 g/dL (6.4-8.2)
[2018-02-18 14:30] VITALS: BP 126/67
[2018-02-18 16:30] VITALS: BP 136/69
[2018-02-18] MEDS ORDERED: MIRALAX17 GM PO (21:03)
[2018-02-19 01:14] VITALS: BP 128/55; BMI 25.6; BMI 26.5
[2018-02-19 05:09] VITALS: BP 137/59
[2018-02-19 06:09] LABS: BASOPHILS 0.2 % (0-2); EOSINOPHILS 0.9 % (0-7); HEMATOCRIT 40.7 % (36.0-48.0); HEMOGLOBIN 12.6 g/dL (12-16); IMMATURE GRANULOCYTES 0.2 % (0-5); MCH 29.9 pg (26.0-34.0); MEAN PLATELET VOLUME 11.1 fL (7.4-10.4); NEUTROPHILS 80.7 % (40-80); PLATELET COUNT 178 10x3/uL (130-400); RBC 4.21 10x6/uL (4.00-5.40); RDW 16.7 % (11.5-14.5); WBC 4.5 10x3/uL (4.8-10.8)
[2018-02-19 06:28] LABS: MCV 96.7 fL (80.0-100.0)
[2018-02-19 06:39] LABS: ALBUMIN 2.5 g/dL (3.4-5.0); ANION GAP 12.9 mmol/L (8-16); BILIRUBIN - TOTAL 0.82 mg/dL (0.2-1.3); CALCIUM 8.3 mg/dL (8.5-10.1); CARBON DIOXIDE 26.4 mmol/L (21.0-32.0); CREATININE - SERUM 2.3 mg/dL (0.6-1.3); POTASSIUM - SERUM 4.3 mmol/L (3.5-5.1); PROTEIN - SERUM 5.4 g/dL (6.4-8.2)
[2018-02-19 08:13] VITALS: BP 117/59
[2018-02-19 10:01] LABS: APPEARANCE HAZY (CLEAR); BILIRUBIN NEGATIVE (NEGATIVE); COLOR YELLOW (YELLOW); GLUCOSE NEGATIVE (NEGATIVE); KETONE NEGATIVE (NEGATIVE); NITRITE NEGATIVE (NEGATIVE); PROTEIN TRACE mg/dL (NEGATIVE); SPECIFIC GRAVITY 1.015 (1.005-1.020); UROBILINOGEN NORMAL (NORMAL)
[2018-02-19 10:02] LABS: BACTERIA MODERATE /hpf (NONE SEEN); EPITHELIAL CELLS 0-5 /hpf (0-5); HYALINE CAST OCC /lpf (NONE SEEN); RED CELLS - URINE OCC /hpf (0-5); WAXY CAST RARE /lpf (NONE SEEN); YEAST >1+ /hpf (NONE SEEN)
[2018-02-19 12:00] VITALS: BP 118/68
[2018-02-19 14:26] VITALS: Ht 154.9 cm; Wt 61.5 kg
[2018-02-19 20:00] VITALS: BP 111/62
[2018-02-20 04:00] VITALS: BP 112/65
[2018-02-20 04:31] LABS: BASOPHILS 0.3 % (0-2); EOSINOPHILS 1.1 % (0-7); HEMOGLOBIN 12.5 g/dL (12-16); LYMPHOCYTES 10.3 % (15-50); MCH 30.2 pg (26.0-34.0); MCHC 31.3 g/dL (31.0-37.0); MCV 96.6 fL (80.0-100.0); MONOCYTES 7.2 % (2-11); NEUTROPHILS 81.1 % (40-80); PLATELET COUNT 164 10x3/uL (130-400); RBC 4.14 10x6/uL (4.00-5.40); RDW 16.3 % (11.5-14.5); WBC 3.6 10x3/uL (4.8-10.8)
[2018-02-20 04:58] LABS: ANION GAP 13.1 mmol/L (8-16); BILIRUBIN - TOTAL 0.73 mg/dL (0.2-1.3); CALCIUM 8.4 mg/dL (8.5-10.1); CARBON DIOXIDE 27.3 mmol/L (21.0-32.0); CREATININE - SERUM 2.3 mg/dL (0.6-1.3); POTASSIUM - SERUM 4.4 mmol/L (3.5-5.1); PROTEIN - SERUM 6.2 g/dL (6.4-8.2)
[2018-02-20 16:31] VITALS: BP 127/69
[2018-02-20 19:58] VITALS: BP 106/62
[2018-02-21] VITALS: BP 131/73
[2018-02-21 04:00] VITALS: BP 142/82
[2018-02-21 07:18] LABS: ALBUMIN 2.9 g/dL (3.4-5.0); ANION GAP 14.5 mmol/L (8-16); BILIRUBIN - TOTAL 0.73 mg/dL (0.2-1.3); CALCIUM 8.5 mg/dL (8.5-10.1); CARBON DIOXIDE 24.2 mmol/L (21.0-32.0); POTASSIUM - SERUM 4.7 mmol/L (3.5-5.1); PROTEIN - SERUM 6.1 g/dL (6.4-8.2)
[2018-02-21 07:49] LABS: BASOPHILS 0.5 % (0-2); EOSINOPHILS 1.3 % (0-7); HEMATOCRIT 40.7 % (36.0-48.0); HEMOGLOBIN 12.9 g/dL (12-16); IMMATURE GRANULOCYTES 0.3 % (0-5); MCHC 31.7 g/dL (31.0-37.0); MCV 94.7 fL (80.0-100.0); MEAN PLATELET VOLUME 10.8 fL (7.4-10.4); MONOCYTES 7.7 % (2-11); NEUTROPHILS 77.2 % (40-80); PLATELET COUNT 149 10x3/uL (130-400); RDW 15.9 % (11.5-14.5); WBC 3.9 10x3/uL (4.8-10.8)
[2018-02-21 09:35] VITALS: BP 141/65
[2018-02-21 21:11] VITALS: BP 141/75
[2018-02-22 05:16] LABS: BASOPHILS 0.5 % (0-2); EOSINOPHILS 1.6 % (0-7); HEMATOCRIT 42.3 % (36.0-48.0); HEMOGLOBIN 13.5 g/dL (12-16); MCH 30.2 pg (26.0-34.0); MCHC 31.9 g/dL (31.0-37.0); MCV 94.6 fL (80.0-100.0); MEAN PLATELET VOLUME 10.1 fL (7.4-10.4); MONOCYTES 4.1 % (2-11); NEUTROPHILS 79.8 % (40-80); PLATELET COUNT 147 10x3/uL (130-400); RBC 4.47 10x6/uL (4.00-5.40); RDW 16.3 % (11.5-14.5); WBC 3.6 10x3/uL (4.8-10.8)
[2018-02-22 05:57] LABS: ALBUMIN 3.4 g/dL (3.4-5.0); ANION GAP 16.7 mmol/L (8-16); BILIRUBIN - TOTAL 0.72 mg/dL (0.2-1.3); CALCIUM 8.6 mg/dL (8.5-10.1); CARBON DIOXIDE 23.2 mmol/L (21.0-32.0); CREATININE - SERUM 1.9 mg/dL (0.6-1.3); POTASSIUM - SERUM 4.9 mmol/L (3.5-5.1); PROTEIN - SERUM 6.8 g/dL (6.4-8.2)
[2018-02-22 06:05] VITALS: BP 150/81
[2018-02-22 08:38] VITALS: BP 140/73
[2018-02-22 12:50] VITALS: BP 161/91
[2018-02-22 16:34] VITALS: BP 154/88
[2018-02-22 21:01] VITALS: BP 145/84
[2018-02-23 05:23] LABS: BASOPHILS 0.5 % (0-2); EOSINOPHILS 0.9 % (0-7); HEMATOCRIT 39.2 % (36.0-48.0); HEMOGLOBIN 12.5 g/dL (12-16); IMMATURE GRANULOCYTES 0.2 % (0-5); LYMPHOCYTES 10.9 % (15-50); MCH 29.8 pg (26.0-34.0); MCHC 31.9 g/dL (31.0-37.0); MCV 93.3 fL (80.0-100.0); MEAN PLATELET VOLUME 11.3 fL (7.4-10.4); MONOCYTES 5.4 % (2-11); NEUTROPHILS 82.1 % (40-80); RDW 16.3 % (11.5-14.5); WBC 4.4 10x3/uL (4.8-10.8)
[2018-02-23 05:25] LABS: PLATELET COUNT 185 10x3/uL (130-400)
[2018-02-23 05:52] VITALS: BP 147/85
[2018-02-23 05:56] LABS: ALBUMIN 3.1 g/dL (3.4-5.0); ANION GAP 13.9 mmol/L (8-16); BILIRUBIN - TOTAL 0.59 mg/dL (0.2-1.3); CALCIUM 8.8 mg/dL (8.5-10.1); CARBON DIOXIDE 27.5 mmol/L (21.0-32.0); CREATININE - SERUM 2.2 mg/dL (0.6-1.3); POTASSIUM - SERUM 4.4 mmol/L (3.5-5.1); PROTEIN - SERUM 6.4 g/dL (6.4-8.2)
[2018-02-23 09:44] VITALS: BP 151/87
[2018-02-23] MEDS ORDERED: CIPRO250 MG PO (14:11)
[2018-02-23 14:44] VITALS: BP 144/85
== END 2018-02-23 16:05 | disposition home health service (06) | DRG 393 ==
LOC: D.ER 13:30 → D.EDHOLD 17:07 → D.MS 17:07
PROVIDERS: Family Medicine
DX: K43.6 Other and unspecified ventral hernia with obstruction, without gangrene (principal); I50.23 Acute on chronic systolic (congestive) heart failure; I42.0 Dilated cardiomyopathy; N17.9 Acute kidney failure, unspecified; N39.0 Urinary tract infection, site not specified; I12.9 Hypertensive chronic kidney disease with stage 1 through stage 4 chronic kidney disease, or unspecified chronic kidney disease; N18.3 Chronic kidney disease, stage 3 (moderate); J44.9 Chronic obstructive pulmonary disease, unspecified; K21.9 Gastro-esophageal reflux disease without esophagitis

== ENCOUNTER 2018-03-08 16:50 | Inpatient (IN) | payer MEDICARE ==
[~2018-03-08] VITALS: Ht 154.9 cm; Wt 63.6 kg
--- NOTE | ~2018-03-08 | MORECARE ---
CASE MANAGEMENT DISCHARGE SUMMARY PATIENT: MYNOR AGUILAR UNIT: [id number] ADM DATE: 03/08/18 AGE: 77 : 42 SEX: F ROOM/BED: D.5307 AUTHOR: FÁTIMA SALVADOR PHYSICIAN: REFERRING PHYSICIAN: ANTHONY CATHERINE MD DATE OF SERVICE: 03/12/18 Discharge Plan Patient Name: MYNOR AGUILAR Facility: [facility]:[place] : 1940 Planned Disposition: Home with Home Health Anticipated Discharge Date: 03/12/18 Discharge Date: Expected LOS: 4 Initial Reviewer: [email or web address] Initial Review Date: 03/11/2018 Generated: 03/12/18 5:34 pm Comments DCP- Discharge Planning Updated by [email or web address]: James Amaya on 03/11/18 11:[address] Patient Name: MYNOR AGUILAR Admission Status: ER Accout number: [id number] Admission Date: 03-08-2018 : 1940 Admission Diagnosis:SHORTNESS OF BREATH Attending: ANTHONY CATHERINE Current LOS: 3 Anticipated DC Date: 03-12-18 Planned Disposition: HOME WITH HOME HEALTH Primary Insurance: MEDICARE A & B PLANNED EXTERNAL PROVIDER: [email or web address] Discharge Planning Comments: CM MET WITH PT IN ROOM TO DISCUSS DISCHARGE PLANNING AND NEEDS. PT REPORTS LIVING AT HOME INDEPENDENTLY WITH HER SPOUSE. PT HAS CANE, HOME AND PORTABLE OXYGEN, WALKER AND WHEELCHAIR FROM [facility]. PT HAS NO OUTSIDE SERVICES ASSISTING IN THE HOME. CM DISCUSSED AVAILABILITY OF HOME HEALTH, REHAB SERVICES AND MEDICAL EQUIPMENT. PT STATES FAMILY ASSISTS WITH HOUSEKEEPING AND THEY ALSO HAVE MEALS ON WHEELS MEAL DELIVERY. PT REPORTS HAVING HOME HEALTH THERAPY AND NURSING WITH [facility] AND WANTS IT TO CONTINUE AT DISCHARGE HOME. PT REPORTS SHE IS NOT GOING TO REHAB INPATIENT OR IN NURSING FACILITY. PT REPORTS HER FAMILY WILL PICK HER UP FOR DISCHARGE HOME. IMPORTANT MESSAGE FROM MEDICARE PROVIDED AND EXPLAINED. CM CALLED [employer], , SPOKE TO RUDI WHO VERIFIED PT IS ACTIVE AND ON HOLD UNTIL HOSPITAL DISCHARGE FOR HOME HEALTH RESUMPTION. CM FAXED UPDATE TO [email or web address] AT [phone]. FOR RESUMPTION OF HOME HEALTH CARE AT DISCHARGE, NOTIFY [employer] AT [phone], FAX DISCHARGE INFORMATION TO [email or web address] AT [phone]. CM TO FOLLOW AND ASSIST NEEDED. Packing And Final Assembly Supervisor: James Amaya DCPIA - Discharge Planning Initial Assessment Updated by [id number]: James Amaya on 03/11/18 12:55 pm * Is the patient Alert and Oriented? Yes * How many steps to enter\exit or inside your home? * PCP DR. CATHERINE * Pharmacy [facility] * Preadmission Environment Home with Family * ADLs Independent * Equipment Bedside [facility] Bed Oxygen Walker Wheelchair * Other Equipment HOME AND PORTABLE OXYGEN [facility] - PROVIDER * List name and contact numbers for known caregivers / representatives who currently or will assist patient after discharge: ANTHONY AGUILAR, SPOUSE, SANDY DARÍO GRANDSON, * Verbal permission to speak to the caregivers and representatives has been obtained from the patient. N/A * Community resources currently utilized Home Health Meals on Wheels * Please name any agencies selected above. [email or web address] - ARE[facility] * Additional services required to return to the preadmission environment? No * Can the patient safely return to the preadmission environment? Yes * Has this patient been hospitalized within the prior 30 days at any hospital? Yes Coverage Notice Reviewer: [id number] - James Amaya Notice Issued Date-Time: 03/11/2018 12:30 Notice Type: IM Discharge Notice Notice Delivered To: Patient Relationship to Patient: Bowling Ball Engraver Name: Delivery Method: HAND - Hand Delivered Zuleyma Days: Prior Verbal Notification: Recipient Understood Notice: Yes Recipient Signature: Yes Med Rec Note Co-signed by Attending: Coverage Notice Comment: Last DP export: 03/11/18 11:59 Patient Name: MYNOR AGUILAR Page [id number] at 1634 All edits/amendments must be made on the electronic document DICTATION DATE: 03/12/181633 TRANSCRIPTION: DANYELL 03/12/181633 RPT#: [id number] DC DATE: STATUS: ADM IN [facility] [address] [place] [address] END OF REPORT
--- NOTE | ~2018-03-08 | CN ---
PATIENT NAME:MYNOR AGUILAR MEDICAL RECORD: [id number] : 44 LOCATION:D.Alex D.2109 ADMIT DATE: 03/08/18 ACCOUNT: [id number] CONSULTING PHYSICIAN: MARIELA BOTELLO MD REFERRING PHYSICIAN: ANTHONY CATHERINE MD DATE OF CONSULTATION: 03/09/2018 HISTORY OF PRESENT ILLNESS: A 77-year-old lady with a history of nonischemic cardiomyopathy, EF 20% to 25%. She also has a history of chronic renal insufficiency with creatinine 2.3-2.7 range, making medical management somewhat tenuous, admitted with volume overload. She has a history of a borderline QRS duration, regarding device therapy with QRS duration right at 120, admitted with typical volume overload to the point of faisal orthopnea and PND. We were asked to see her concerning cardiovascular status. PAST MEDICAL HISTORY: 1. History of nonischemic cardiomyopathy. 2. Hypertension. 3. Hyperlipidemia. ALLERGIES: INCLUDE LONG-ACTING NITRATES, LABETALOL, AUGMENTIN, METOPROLOL, AMOXICILLIN. HOME MEDICATIONS: Typically include, Cipro, nifedipine 60 every day, Ativan 1 mg q. 4 hours p.r.n., Lasix 80 every day, potassium 10 mEq every day, Pepcid 40 every day. SOCIAL HISTORY: Nonsmoker, nondrinker. Does have difficulty with ADLs. REVIEW OF SYSTEMS: The patient reports easy bruising but reports no swollen glands. The patient reports no fever, no night sweats, no significant weight gain, no significant weight loss. No significant exercise tolerance. The patient reports no dry eyes, no irritation, no vision change. Patient reports no difficulty hearing and no ear pain. Patient reports no frequent nose bleeds or nose and sinus problems. Patient reports on arm pain on exertion. No shortness of breath while lying down. No history of heart murmur. Patient reports no cough, no wheezing or coughing up blood. Patient reports no abdominal pain, no vomiting. Normal appetite. No diarrhea and not vomiting blood. No nausea and no constipation. Patient reports no incontinence. No difficulty urinating. No hematuria. No increased frequency. Patient reports no muscle aches. No weakness, no arthralgias, no back pain. No swelling of the extremities. Patient reports no abnormal mole, no jaundice, no rashes. Reports no loss of consciousness. No weakness and no numbness. No seizures, dizziness, or headaches. The patient reports no depression, no sleep disturbance, feeling safe in a relationship and no alcohol abuse. Patient reports on fatigue. Reports no runny nose or sinus pressure. No itching, no hives, and no frequent sneezing. PHYSICAL EXAMINATION: GENERAL: Elderly, cachectic-appearing female in no acute distress. VITAL SIGNS: 133/96, pulse 92 and regular. HEENT: Normocephalic, atraumatic. NECK: No bruits noted. HEART: Regular, II/ systolic ejection murmur with an S3 gallop is noted. LUNGS: Bibasilar crackles. CONSULT REPORT [id number] MYNOR AGUILAR ABDOMEN: Soft, nontender. EXTREMITIES: Pulses 1+. There is no edema. IMPRESSION: Volume overload, class III to IV cardiomyopathy, will still consider advanced device therapy at some point. In the interim, we will put on Dobutrex to hopefully mobilize fluid at this point and provide inotropic support. TRANSINT:[id number] Voice Confirmation ID: [id number] DOCUMENT ID: [id number] MARIELA BOTELLO MD at 2229 CC: [id number] DICTATION DATE: 03/09/18 0841 DIE BARBER: 03/09/18 1202 ADM IN [facility] [address] [place] [id number]
--- NOTE | ~2018-03-08 | MORECARE ---
CASE MANAGEMENT DISCHARGE SUMMARY PATIENT: MYNOR AGUILAR UNIT: [id number] ADM DATE: 03/08/18 AGE: 77 : 42 SEX: F ROOM/BED: D.2001 AUTHOR: FÁTIMA SALVADOR PHYSICIAN: REFERRING PHYSICIAN: ANTHONY CATHERINE MD DATE OF SERVICE: 03/11/18 Discharge Plan Patient Name: MYNOR AGUILAR Facility: [facility]:[place] : 1940 Planned Disposition: Home with Home Health Anticipated Discharge Date: 03/12/18 Discharge Date: Expected LOS: 4 Initial Reviewer: [email or web address] Initial Review Date: 03/11/2018 Generated: 03/11/18 1:58 pm Comments DCP- Discharge Planning Updated by [id number]: James Amaya on 03/11/18 11:[address] Patient Name: MYNOR AGUILAR Admission Status: ER Accout number: [id number] Admission Date: 03-08-2018 : 1940 Admission Diagnosis:SHORTNESS OF BREATH Attending: ANTHONY CATHERINE Current LOS: 3 Anticipated DC Date: 03-12-18 Planned Disposition: HOME WITH HOME HEALTH Primary Insurance: MEDICARE A & B PLANNED EXTERNAL PROVIDER: [facility] Discharge Planning Comments: CM MET WITH PT IN ROOM TO DISCUSS DISCHARGE PLANNING AND NEEDS. PT REPORTS LIVING AT HOME INDEPENDENTLY WITH HER SPOUSE. PT HAS CANE, HOME AND PORTABLE OXYGEN, WALKER AND WHEELCHAIR FROM [facility]. PT HAS NO OUTSIDE SERVICES ASSISTING IN THE HOME. CM DISCUSSED AVAILABILITY OF HOME HEALTH, REHAB SERVICES AND MEDICAL EQUIPMENT. PT STATES FAMILY ASSISTS WITH HOUSEKEEPING AND THEY ALSO HAVE MEALS ON WHEELS MEAL DELIVERY. PT REPORTS HAVING HOME HEALTH THERAPY AND NURSING WITH [facility] AND WANTS IT TO CONTINUE AT DISCHARGE HOME. PT REPORTS SHE IS NOT GOING TO REHAB INPATIENT OR IN NURSING FACILITY. PT REPORTS HER FAMILY WILL PICK HER UP FOR DISCHARGE HOME. IMPORTANT MESSAGE FROM MEDICARE PROVIDED AND EXPLAINED. CM CALLED [employer], , SPOKE TO RUDI WHO VERIFIED PT IS ACTIVE AND ON HOLD UNTIL HOSPITAL DISCHARGE FOR HOME HEALTH RESUMPTION. CM FAXED UPDATE TO [employer] AT [phone]. FOR RESUMPTION OF HOME HEALTH CARE AT DISCHARGE, NOTIFY [employer] AT [phone], FAX DISCHARGE INFORMATION TO [employer] AT [phone]. CM TO FOLLOW AND ASSIST NEEDED. Cinder Worker: James Amaya DCPIA - Discharge Planning Initial Assessment Updated by [id number]: James Amaya on 03/11/18 12:55 pm * Is the patient Alert and Oriented? Yes * How many steps to enter\exit or inside your home? * PCP DR. CATHERINE * Pharmacy [facility] * Preadmission Environment Home with Family * ADLs Independent * Equipment Bedside [facility] Bed Oxygen Walker Wheelchair * Other Equipment HOME AND PORTABLE OXYGEN [facility] - PROVIDER * List name and contact numbers for known caregivers / representatives who currently or will assist patient after discharge: ANTHONY AGUILAR, SPOUSE, SANDY DARÍO GRANDSON, * Verbal permission to speak to the caregivers and representatives has been obtained from the patient. N/A * Community resources currently utilized Home Health Meals on Wheels * Please name any agencies selected above. [employer] - AREA AGENCY [facility] [employer] * Additional services required to return to the preadmission environment? No * Can the patient safely return to the preadmission environment? Yes * Has this patient been hospitalized within the prior 30 days at any hospital? Yes External Providers External Provider: [facility] Next Contact Date: 03/12/2018 Service Request Date: Service Type: Resolution: Reviewer: Comments: Coverage Notice Reviewer: [id number] - James Amaya Notice Issued Date-Time: 03/11/2018 12:30 Notice Type: IM Discharge Notice Notice Delivered To: Patient Relationship to Patient: Burner Technician Name: Delivery Method: HAND - Hand Delivered Zuleyma Days: Prior Verbal Notification: Recipient Understood Notice: Yes Recipient Signature: Yes Med Rec Note Co-signed by Attending: Coverage Notice Comment: Patient Name: MYNOR AGUILAR Page 48324 at 1259 All edits/amendments must be made on the electronic document DICTATION DATE: 03/11/181257 BIOCHEMICAL ENGINEER: DANYELL 03/11/181257 RPT#: [id number] DC DATE: STATUS: ADM IN [facility] [address] [place] [address] END OF REPORT
--- NOTE | ~2018-03-08 | MORECARE ---
CASE MANAGEMENT DISCHARGE SUMMARY PATIENT: MYNOR AGUILAR UNIT: [id number] ADM DATE: 03/08/18 AGE: 77 : 42 SEX: F ROOM/BED: D.9735 AUTHOR: FÁTIMA SALVADOR PHYSICIAN: REFERRING PHYSICIAN: ANTHONY CATHERINE MD DATE OF SERVICE: 03/12/18 Discharge Plan Patient Name: MYNOR AGUILAR Facility: [facility]:[place] : 1940 Planned Disposition: Home with Home Health Anticipated Discharge Date: 03/12/18 Discharge Date: 03/12/2018 Expected LOS: 4 Initial Reviewer: [email or web address] Initial Review Date: 03/11/2018 Generated: 03/12/18 5:52 pm Comments DCP- Discharge Planning Updated by [id number]: Edita Ambrose on 03/12/18 3:[address] Patient Name: MYNOR AGUILAR Encounter No: [id number] : 1940 Primary Insurance: MEDICARE A & B Anticipated DC Date: 03-12-2018 Planned Disposition: Home with Home Health External Planned Provider: : DCP follow-up note: Patient and family in agreement with discharge plan. No changes to plan. I gave patient and family brochure's from several different Hospice agencies and spoke with her some about hospice. Case management will follow and assist as needed. CM will follow and assist as needed Edita Ambrose DCP- Discharge Planning Updated by [email or web address]: James Amaya on 03/11/18 11:[address] Patient Name: MYNOR AGUILAR Admission Status: ER Accout number: [id number] Admission Date: 03-08-2018 : 1940 Admission Diagnosis:SHORTNESS OF BREATH Attending: ANTHONY CATHERINE Current LOS: 3 Anticipated DC Date: 03-12-18 Planned Disposition: HOME WITH HOME HEALTH Primary Insurance: MEDICARE A & B PLANNED EXTERNAL PROVIDER: [facility] Discharge Planning Comments: CM MET WITH PT IN ROOM TO DISCUSS DISCHARGE PLANNING AND NEEDS. PT REPORTS LIVING AT HOME INDEPENDENTLY WITH HER SPOUSE. PT HAS CANE, HOME AND PORTABLE OXYGEN, WALKER AND WHEELCHAIR FROM [facility]. PT HAS NO OUTSIDE SERVICES ASSISTING IN THE HOME. CM DISCUSSED AVAILABILITY OF HOME HEALTH, REHAB SERVICES AND MEDICAL EQUIPMENT. PT STATES FAMILY ASSISTS WITH HOUSEKEEPING AND THEY ALSO HAVE MEALS ON WHEELS MEAL DELIVERY. PT REPORTS HAVING HOME HEALTH THERAPY AND NURSING WITH [facility] AND WANTS IT TO CONTINUE AT DISCHARGE HOME. PT REPORTS SHE IS NOT GOING TO REHAB INPATIENT OR IN NURSING FACILITY. PT REPORTS HER FAMILY WILL PICK HER UP FOR DISCHARGE HOME. IMPORTANT MESSAGE FROM [employer] PROVIDED AND EXPLAINED. CM CALLED [employer], , SPOKE TO RUDI WHO VERIFIED PT IS ACTIVE AND ON HOLD UNTIL HOSPITAL DISCHARGE FOR HOME HEALTH RESUMPTION. CM FAXED UPDATE TO [employer] AT [phone]. FOR RESUMPTION OF HOME HEALTH CARE AT DISCHARGE, NOTIFY [facility] AT [phone], FAX DISCHARGE INFORMATION TO [employer] AT [phone]. CM TO FOLLOW AND ASSIST NEEDED. Pack Train Driver: James Amaya DCPIA - Discharge Planning Initial Assessment Updated by [id number]: James Amaya on 03/11/18 12:55 pm * Is the patient Alert and Oriented? Yes * How many steps to enter\exit or inside your home? * PCP DR. CATHERINE * Pharmacy [facility] * Preadmission Environment Home with Family * ADLs Independent * Equipment Bedside [facility] Bed Oxygen Walker Wheelchair * Other Equipment [facility] * List name and contact numbers for known caregivers / representatives who currently or will assist patient after discharge: ANTHONY AGUILAR, SPOUSE, SANDY CHANEL GRANDSON, * Verbal permission to speak to the caregivers and representatives has been obtained from the patient. N/A * Community resources currently utilized Home Health Meals on Wheels * Please name any agencies selected above. [employer] [facility] - AREA AGENCY ON AGING * Additional services required to return to the preadmission environment? No * Can the patient safely return to the preadmission environment? Yes * Has this patient been hospitalized within the prior 30 days at any hospital? Yes Coverage Notice Reviewer: [id number] - James Amaya Notice Issued Date-Time: 03/11/2018 12:30 Notice Type: IM Discharge Notice Notice Delivered To: Patient Relationship to Patient: Helicopter Technician Name: Delivery Method: HAND - Hand Delivered Zuleyma Days: Prior Verbal Notification: Recipient Understood Notice: Yes Recipient Signature: Yes Med Rec Note Co-signed by Attending: Coverage Notice Comment: Last DP export: 03/12/18 3:34 Patient Name: MYNOR AGUILAR Page 27617 at 1652 All edits/amendments must be made on the electronic document DICTATION DATE: 03/12/181651 RESIDENTIAL FEE APPRAISER: DANEYLL 03/12/181651 RPT#: [id number] DC DATE:03/12/18 STATUS: DIS IN [facility] [address] [place] [address] END OF REPORT
--- NOTE | ~2018-03-08 | EC ---
PATIENT:MYNOR AGUILAR DATE OF SERVICE: 03/08/18 SEX: F MEDICAL RECORD: [id number] DATE OF : 44 LOCATION:D.M2 D.210 AGE OF PATIENT: 77 ADMISSION DATE: 03/08/18 REFERRING PHYSICIAN: INTERPRETING PHYSICIAN: MARIELA BOTELLO MD ECHOCARDIOGRAM REPORT ECHO CHARGES 4 ECHO COMPLETE Date: 03/09/18 CLINICAL DIAGNOSIS: CHF ECHOCARDIOGRAPHIC MEASUREMENTS (adult normal given) AC root (d.<3.7cm) 2.6 cm LV Septum d (<1.2 cm> 1.5 cm Valve Excursion 1.1 cm LV Septum (systole) 1.6 cm Left Atria (s.<4.0cm> 5.3 cm LVPW d(<1.2cm) 1.4 cm RV (d.<2.3cm) 5.3 cm LVPW (sytole) 1.6 cm LV diastole(<5.6CM) 6.4 cm MV E-F(>70mm/sec) cm LV systole 5.5 cm LVOT Diameter 1.4 cm MV exc.(>10mm) 1.6 cm Est.ejection fraction (50-75%) % DOPPLER: LVIT cm/sec A 135 cm/sec E cm/sec LA cm/sec RVSP 72 mmHg LVOT 67 cm/sec AOP1/2T m/s Asc. Ao 102 cm/sec RVOT 42 cm/sec RA cm/sec PA 93 cm/sec AV Gradient Peak 4.15 mmHg AV Mean 2.16 mmHg AV Area 1.1 cm MV Gradient Peak 12.59mmHg MV Mean 4.13 mmHg MV Area cm COMMENTS: Compounding Technician: 2 [facility] Aide: 3 Dr. Ashraf TAPE# PACS Pericardial Effusion Y DATE OF SERVICE: 03/09/2018 Adequate 2D echo, color flow, spectral Doppler and M-mode. No LVH. LV internal dimensions are dilated. LV is severely globally hypokinetic with reduced EF, estimated EF 15% to 20%. Aortic valve is tricuspid. No evidence of stenosis by Doppler interrogation. Left atrium is dilated at 5.3 cm. Mitral valve shows no prolapse. [id number] MR. Right-sided chambers grossly normal. Moderate TR. ECHOCARDIOGRAM REPORT [id number] MYNOR AGUILAR TRANSINT:[id number] Voice Confirmation ID: [id number] DOCUMENT ID: [id number] MARIELA BOTELLO MD at 2229 CC: [id number] DICTATION DATE: 03/09/181427 CAREER TECHNICAL COUNSELOR: 03/09/18 1502 ADM IN [facility] [address] [place] [address]
--- NOTE | ~2018-03-08 | HP ---
PATIENT: MYNOR AGUILAR MEDICAL RECORD: [id number] ACCOUNT: [id number] LOCATION:. D.2109 : 44 ADMISSION DATE: 03/08/18 PCP: No PCP HISTORY AND PHYSICAL EXAMINATION DATE OF ADMISSION: 03/08/2018 CHIEF COMPLAINT: Fluid overload, shortness of breath, and lower extremity edema. HISTORY: This 77-year-old -Irish has nonischemic cardiomyopathy with EF in the 20% range. Also chronic renal insufficiency and hypertension. She has been in and out of the hospital with CHF/fluid overload and she got worse yesterday. She was brought in to the ER with worsening shortness of breath. The chest x-ray showed bilateral effusions, compatible with CHF. She also has lower extremity edema. Her creatinine was 2.0 on admission. ProBNP was very elevated. She had venous Doppler ultrasound done this morning showing bilateral posterior tibial vein thrombosis. No DVT in popliteal and femoral veins or common femoral veins. She has been seen by a ironworker, who has her on Dobutrex at this time. PAST MEDICAL HISTORY: Chronic renal insufficiency with creatinine around 2.2. She has hypertension, ventral hernia, left hemispheric CVA in 2017, and nonischemic cardiomyopathy with ejection fraction of 15% to 20%. PAST SURGICAL HISTORY: Partial colectomy for uncertain reasons. She has had hysterectomy, tubal ligation, cholecystectomy, and parathyroidectomy. ALLERGIES: ALL BETA-BLOCKERS, HYDRALAZINE, AND ISOSORBIDE DINITRATE. SOCIAL HISTORY: She lives with her and other family. HABITS: Former smoker. No alcohol or drugs. FAMILY HISTORY: Significant for hypertension. HOME MEDICATIONS: Include Procardia XL 60 once a day, lorazepam 0.5 every six hours p.r.n. anxiety, Lasix 80 mg daily, potassium 10 mEq daily, Colace 100 mg two pills at bedtime, and Pepcid 10 mg twice a day. REVIEW OF SYSTEMS: GENERAL: No major weight changes. HEENT: No sinus or allergy problems. RESPIRATORY: She has shortness of breath due to CHF. No known emphysema or asthma. CARDIAC: See above history with nonischemic cardiomyopathy with ejection fraction around 20%. GASTROINTESTINAL: She has had some reflux problems. GENITOURINARY: No significant problems there. MUSCULOSKELETAL: No significant arthritis. NEUROLOGIC: No migraines or seizures. PSYCHIATRIC: She has anxiety. PHYSICAL EXAMINATION: VITAL SIGNS: Temperature 97.9, pulse 98, respirations 22, and blood pressure HISTORY AND PHYSICAL [id number] MYNOR AGUILAR 150/96. GENERAL: She is sitting on side of the bed with shortness of breath. HEENT: Grossly within normal limits. NECK: Supple. HEART: Regular rate and rhythm. No murmur. LUNGS: Diminished breath sounds in the bases bilaterally. ABDOMEN: Soft and nontender. EXTREMITIES: 2+ to 3+ pitting edema. LABORATORIES: CBC with white count of 6000 and hemoglobin of 13.1. INR 1.33. D-dimer elevated at 1.28. Sodium 147, potassium 4.6, chloride 108, CO2 of 28, BUN 80, creatinine 2.3, glucose 98, and calcium 9.2. Liver functions are okay. Troponin is elevated at 0.079, going up to 0.115. ProBNP is 72,279. Total protein is normal. DIAGNOSTIC DATA: Chest x-ray is unchanged. Cardiomegaly. Small bilateral pleural effusion. Bibasilar atelectasis or infiltrates. Bilateral venous Doppler ultrasound showed calf venous thrombosis in posterior tibial veins bilaterally. No DVT is detected at the level of the popliteal vein. ASSESSMENT: 1. Volume overload with nonischemic cardiomyopathy. 2. Bilateral lower extremity DVTs. 3. Hypertension. 4. Chronic renal insufficiency. PLAN: Dr. Ashraf has seen the patient and he started her on Dobutrex drip. We will start Lovenox and transition to oral medicine for DVT. I discussed code status. She is DNR. She understands she has a poor prognosis. Her heart is very weak. She will discuss with her family about possible hospice. TRANSINT:[id number] Voice Confirmation ID: [id number] DOCUMENT ID: [id number] NATHONY CATHERINE MD at 1800 CC: [id number] DICTATION DATE: 03/09/18 1336 SECURITIES UNDERWRITER: 03/09/18 1422 ADM IN [facility] [id number] [place] [address]
--- NOTE | ~2018-03-08 | MORECARE ---
CASE MANAGEMENT DISCHARGE SUMMARY PATIENT: MYNOR AGUILAR UNIT: [id number] ADM DATE: 03/08/18 AGE: 77 : 42 SEX: F ROOM/BED: D.9645 AUTHOR: FÁTIMA SALVADOR PHYSICIAN: REFERRING PHYSICIAN: ANTHONY CATHERINE MD DATE OF SERVICE: 03/15/18 Discharge Plan Patient Name: MYNOR AGUILAR Facility: [facility]:[place] : 1940 Planned Disposition: Home with Home Health Anticipated Discharge Date: 03/12/18 Discharge Date: 03/12/2018 Expected LOS: 4 Initial Reviewer: [email or web address] Initial Review Date: 03/11/2018 Generated: 03/15/18 9:44 am Comments DCP- Discharge Planning Updated by [email or web address]: Edita Ambrose on 03/12/18 3:[address] Patient Name: MYNOR AGUILAR Encounter No: [id number] : 1940 Primary Insurance: MEDICARE A & B Anticipated DC Date: 03-12-2018 Planned Disposition: Home with Home Health External Planned Provider: : DCP follow-up note: Patient and family in agreement with discharge plan. No changes to plan. I gave patient and family brochure's from several different Hospice agencies and spoke with her some about hospice. Case management will follow and assist as needed. CM will follow and assist as needed Edita Ambrose DCP- Discharge Planning Updated by [email or web address]: James Amaya on 03/11/18 11:[address] Patient Name: MYNOR AGUILAR Admission Status: ER Accout number: [id number] Admission Date: 03-08-2018 : 1940 Admission Diagnosis:SHORTNESS OF BREATH Attending: ANTHONY CATHERINE Current LOS: 3 Anticipated DC Date: 03-12-18 Planned Disposition: HOME WITH HOME HEALTH Primary Insurance: MEDICARE A & B PLANNED EXTERNAL PROVIDER: [facility] Discharge Planning Comments: CM MET WITH PT IN ROOM TO DISCUSS DISCHARGE PLANNING AND NEEDS. PT REPORTS LIVING AT HOME INDEPENDENTLY WITH HER SPOUSE. PT HAS CANE, HOME AND PORTABLE OXYGEN, WALKER AND WHEELCHAIR FROM [facility]. PT HAS NO OUTSIDE SERVICES ASSISTING IN THE HOME. CM DISCUSSED AVAILABILITY OF HOME HEALTH, REHAB SERVICES AND MEDICAL EQUIPMENT. PT STATES FAMILY ASSISTS WITH HOUSEKEEPING AND THEY ALSO HAVE MEALS ON WHEELS MEAL DELIVERY. PT REPORTS HAVING HOME HEALTH THERAPY AND NURSING WITH [facility] AND WANTS IT TO CONTINUE AT DISCHARGE HOME. PT REPORTS SHE IS NOT GOING TO REHAB INPATIENT OR IN NURSING FACILITY. PT REPORTS HER FAMILY WILL PICK HER UP FOR DISCHARGE HOME. IMPORTANT MESSAGE FROM MEDICARE PROVIDED AND EXPLAINED. CM CALLED [facility], , SPOKE TO RUDI WHO VERIFIED PT IS ACTIVE AND ON HOLD UNTIL HOSPITAL DISCHARGE FOR HOME HEALTH RESUMPTION. CM FAXED UPDATE TO [facility] AT [phone]. FOR RESUMPTION OF HOME HEALTH CARE AT DISCHARGE, NOTIFY [facility] [facility] AT [phone], FAX DISCHARGE INFORMATION TO [employer] AT [phone]. CM TO FOLLOW AND ASSIST NEEDED. Lead Java J2Ee Developer: James Amaya DCPIA - Discharge Planning Initial Assessment Updated by [email or web address]: James Amaya on 03/11/18 12:55 pm * Is the patient Alert and Oriented? Yes * How many steps to enter\exit or inside your home? * PCP DR. CATHERINE * Pharmacy [facility] * Preadmission Environment Home with Family * ADLs Independent * Equipment Bedside [facility] Bed Oxygen Walker Wheelchair * Other Equipment [facility] AND [facility] * List name and contact numbers for known caregivers / representatives who currently or will assist patient after discharge: ANTHONY AGUILAR, SPOUSE, SANDY CHANEL GRANDSON, * Verbal permission to speak to the caregivers and representatives has been obtained from the patient. N/A * Community resources currently utilized Home Health Meals on Wheels * Please name any agencies selected above. [employer] [facility] * Additional services required to return to the preadmission environment? No * Can the patient safely return to the preadmission environment? Yes * Has this patient been hospitalized within the prior 30 days at any hospital? Yes Coverage Notice Reviewer: [email or web address] - James Amaya Notice Issued Date-Time: 03/11/2018 12:30 Notice Type: IM Discharge Notice Notice Delivered To: Patient Relationship to Patient: Dial Painter Name: Delivery Method: HAND - Hand Delivered Zuleyma Days: Prior Verbal Notification: Recipient Understood Notice: Yes Recipient Signature: Yes Med Rec Note Co-signed by Attending: Coverage Notice Comment: Last DP export: 03/12/18 3:52 Patient Name: MYNOR AGUILAR Page [id number] at 0844 All edits/amendments must be made on the electronic document DICTATION DATE: 03/15/18843 CASE MAKER: DANYELL 03/15/18843 RPT#: [id number] DC DATE:03/12/18 STATUS: DIS IN [facility] [address] [place] [address] END OF REPORT
[~2018-03-08 16:50] MED LIST changes: +CIPRO250 MG PO
[2018-03-08 17:15] LABS: BASOPHILS 0.3 % (0-2); EOSINOPHILS 0.5 % (0-7); HEMATOCRIT 39.4 % (36.0-48.0); HEMOGLOBIN 12.3 g/dL (12-16); IMMATURE GRANULOCYTES 0.2 % (0-5); LYMPHOCYTES 8.6 % (15-50); MCH 29.6 pg (26.0-34.0); MCHC 31.2 g/dL (31.0-37.0); MCV 94.9 fL (80.0-100.0); MEAN PLATELET VOLUME 10.4 fL (7.4-10.4); MONOCYTES 5.1 % (2-11); NEUTROPHILS 85.3 % (40-80); PLATELET COUNT 149 10x3/uL (130-400); RBC 4.15 10x6/uL (4.00-5.40); RDW 16.8 % (11.5-14.5); WBC 6.1 10x3/uL (4.8-10.8)
[2018-03-08 17:26] LABS: INR 1.33 (0.85-1.17); PROTIME 16.1 SECONDS (11.6-15.0)
[2018-03-08 17:27] LABS: APTT 41.1 SECONDS (22.8-39.4)
[2018-03-08 17:28] LABS: D-DIMER-QUANTITATIVE 1.28 ug/mLFEU (0.20-0.54)
[2018-03-08 17:38] LABS: ALBUMIN 3.1 g/dL (3.4-5.0); ALKALINE PHOSPHATASE 78 U/L (46-116); ALT (SGPT) 24 U/L (10-68); BILIRUBIN - TOTAL 0.71 mg/dL (0.2-1.3); CALC OSMOLALITY 318 mosm/kg (275-300); CALCIUM 8.4 mg/dL (8.5-10.1); CARBON DIOXIDE 25.4 mmol/L (21.0-32.0); CHLORIDE - SERUM 108 mmol/L (98-107); POTASSIUM - SERUM 4.1 mmol/L (3.5-5.1); PROTEIN - SERUM 6.5 g/dL (6.4-8.2); SODIUM 146 mmol/L (136-145); UREA NITROGEN 76 mg/dL (7-18); eGFR NON AFRICAN AMERICAN 26 mL/min (90-120)
[2018-03-08 17:39] LABS: GLUCOSE 189 mg/dL (74-106)
[2018-03-08 17:55] LABS: CKMB 2.2 U/L (0.0-3.6); CREATINE KINASE 40 UL (21-215)
[2018-03-08 17:59] LABS: PRO BNP 72279 pg/mL (0-450)
[2018-03-08 18:05] LABS: TROPONIN-I 0.079 ng/mL (0.000-0.060)
[2018-03-08 19:13] VITALS: BP 155/94
[2018-03-08] MEDS ORDERED: LASIX80 MG PO (21:16)
[2018-03-09] VITALS: BP 166/76
[2018-03-09 04:00] VITALS: BP 143/88
[2018-03-09 06:00] LABS: BASOPHILS 0.3 % (0-2); EOSINOPHILS 0.5 % (0-7); HEMATOCRIT 42.2 % (36.0-48.0); HEMOGLOBIN 13.1 g/dL (12-16); IMMATURE GRANULOCYTES 0.2 % (0-5); LYMPHOCYTES 10.5 % (15-50); MCH 29.7 pg (26.0-34.0); MCV 95.7 fL (80.0-100.0); MEAN PLATELET VOLUME 11.6 fL (7.4-10.4); MONOCYTES 5.5 % (2-11); PLATELET COUNT 172 10x3/uL (130-400); RBC 4.41 10x6/uL (4.00-5.40); RDW 16.6 % (11.5-14.5)
[2018-03-09 06:36] LABS: ALBUMIN 3.1 g/dL (3.4-5.0); ALKALINE PHOSPHATASE 84 U/L (46-116); ALT (SGPT) 38 U/L (10-68); CALC OSMOLALITY 315 mosm/kg (275-300); CALCIUM 9.2 mg/dL (8.5-10.1); CARBON DIOXIDE 28.4 mmol/L (21.0-32.0); CHLORIDE - SERUM 108 mmol/L (98-107); CKMB 2.8 U/L (0.0-3.6); CREATINE KINASE 45 UL (21-215); CREATININE - SERUM 2.3 mg/dL (0.6-1.3); GLUCOSE 98 mg/dL (74-106); POTASSIUM - SERUM 4.6 mmol/L (3.5-5.1); PROTEIN - SERUM 6.9 g/dL (6.4-8.2); SODIUM 147 mmol/L (136-145); TROPONIN-I 0.115 ng/mL (0.000-0.060); UREA NITROGEN 80 mg/dL (7-18); eGFR NON AFRICAN AMERICAN 22 mL/min (90-120)
[2018-03-09 08:02] VITALS: BP 133/96
[2018-03-09 11:37] VITALS: BP 150/96
[2018-03-09 13:37] VITALS: Ht 154.9 cm; Wt 63.6 kg
[2018-03-09 16:52] VITALS: BP 146/97
[2018-03-09 20:00] VITALS: BP 150/91
[2018-03-10] VITALS: BP 144/87
[2018-03-10 04:00] VITALS: BP 143/79
[2018-03-10 08:38] VITALS: BP 143/88
[2018-03-10 12:01] VITALS: BP 141/80
[2018-03-10 16:31] VITALS: BP 148/66
[2018-03-10 20:00] VITALS: BP 156/89
[2018-03-11] VITALS: BP 164/102
[2018-03-11 04:00] VITALS: BP 152/80
[2018-03-11 06:18] LABS: BASOPHILS 0.2 % (0-2); EOSINOPHILS 0.2 % (0-7); HEMATOCRIT 36.2 % (36.0-48.0); HEMOGLOBIN 11.3 g/dL (12-16); IMMATURE GRANULOCYTES 0.2 % (0-5); LYMPHOCYTES 10.6 % (15-50); MCH 29.2 pg (26.0-34.0); MCHC 31.2 g/dL (31.0-37.0); MCV 93.5 fL (80.0-100.0); MEAN PLATELET VOLUME 10.9 fL (7.4-10.4); MONOCYTES 6.1 % (2-11); NEUTROPHILS 82.7 % (40-80); PLATELET COUNT 147 10x3/uL (130-400); RBC 3.87 10x6/uL (4.00-5.40); RDW 16.4 % (11.5-14.5); WBC 4.4 10x3/uL (4.8-10.8)
[2018-03-11 06:42] LABS: ANION GAP 13.7 mmol/L (8-16); CALCIUM 8.7 mg/dL (8.5-10.1); CARBON DIOXIDE 27.8 mmol/L (21.0-32.0); CREATININE - SERUM 2.3 mg/dL (0.6-1.3); POTASSIUM - SERUM 4.5 mmol/L (3.5-5.1)
[2018-03-11 08:06] VITALS: BP 126/61
[2018-03-11 11:14] VITALS: BP 121/67
[2018-03-11 15:02] VITALS: BP 156/90
[2018-03-11 20:00] VITALS: BP 134/79
[2018-03-12] VITALS: BP 135/76
[2018-03-12 04:00] VITALS: BP 143/79
[2018-03-12 06:46] LABS: HEMATOCRIT 38.2 % (36.0-48.0); HEMOGLOBIN 11.8 g/dL (12-16); LYMPHOCYTES 11.7 % (15-50); MCH 28.9 pg (26.0-34.0); MCHC 30.9 g/dL (31.0-37.0); MCV 93.4 fL (80.0-100.0); MEAN PLATELET VOLUME 10.9 fL (7.4-10.4); NEUTROPHILS 84.3 % (40-80); PLATELET COUNT 134 10x3/uL (130-400); RBC 4.09 10x6/uL (4.00-5.40); RDW 16.8 % (11.5-14.5); WBC 4.1 10x3/uL (4.8-10.8)
[2018-03-12 06:57] LABS: ANION GAP 13.6 mmol/L (8-16); CALCIUM 8.6 mg/dL (8.5-10.1); CARBON DIOXIDE 29.4 mmol/L (21.0-32.0); CREATININE - SERUM 2.1 mg/dL (0.6-1.3)
[2018-03-12 08:20] VITALS: BP 142/79
[2018-03-12 12:07] VITALS: BP 141/81
[2018-03-12 14:14] VITALS: BP 127/77
== END 2018-03-12 16:43 | disposition home health service (06) | DRG 682 ==
LOC: D.ER 16:50 → D.M2 20:52
PROVIDERS: Family Medicine
DX: N17.9 Acute kidney failure, unspecified (principal); I50.23 Acute on chronic systolic (congestive) heart failure; I13.0 Hypertensive heart and chronic kidney disease with heart failure and stage 1 through stage 4 chronic kidney disease, or unspecified chronic kidney disease; I82.443 Acute embolism and thrombosis of tibial vein, bilateral; I42.9 Cardiomyopathy, unspecified; E78.5 Hyperlipidemia, unspecified; Z66 Do not resuscitate; N18.9 Chronic kidney disease, unspecified

== ENCOUNTER 2018-04-10 06:33 | Emergency (ER) | payer MEDICARE ==
[~2018-04-10] VITALS: Ht 154.9 cm; Wt 90.7 kg
[2018-04-10 06:37] VITALS: Ht 154.9 cm; Wt 90.7 kg
[2018-04-10 07:21] LABS: BASOPHILS 0.2 % (0-2); EOSINOPHILS 0.2 % (0-7); HEMATOCRIT 39.6 % (36.0-48.0); HEMOGLOBIN 12.4 g/dL (12-16); LYMPHOCYTES 9.6 % (15-50); MCH 28.6 pg (26.0-34.0); MCHC 31.3 g/dL (31.0-37.0); MCV 91.2 fL (80.0-100.0); MEAN PLATELET VOLUME 11.6 fL (7.4-10.4); MONOCYTES 6.7 % (2-11); NEUTROPHILS 83.3 % (40-80); RBC 4.34 10x6/uL (4.00-5.40); RDW 16.3 % (11.5-14.5); WBC 5.1 10x3/uL (4.8-10.8)
[2018-04-10 07:28] LABS: APPEARANCE CLOUDY (CLEAR); BILIRUBIN NEGATIVE (NEGATIVE); COLOR YELLOW (YELLOW); GLUCOSE NEGATIVE (NEGATIVE); KETONE NEGATIVE (NEGATIVE); NITRITE NEGATIVE (NEGATIVE); PROTEIN 2+ mg/dL (NEGATIVE); SPECIFIC GRAVITY 1.015 (1.005-1.020); UROBILINOGEN NORMAL (NORMAL)
[2018-04-10 07:28] LABS: PLATELET COUNT 196 10x3/uL (130-400)
[2018-04-10 07:30] LABS: BACTERIA FEW /hpf (NONE SEEN); EPITHELIAL CELLS 0-5 /hpf (0-5); RED CELLS - URINE 0-5 /hpf (0-5)
[2018-04-10 07:39] LABS: ALBUMIN 3.1 g/dL (3.4-5.0); ALKALINE PHOSPHATASE 54 U/L (46-116); ALT (SGPT) 11 U/L (10-68); BILIRUBIN - TOTAL 0.93 mg/dL (0.2-1.3); CALC OSMOLALITY 318 mosm/kg (275-300); CALCIUM 8.3 mg/dL (8.5-10.1); CARBON DIOXIDE 22.1 mmol/L (21.0-32.0); CHLORIDE - SERUM 105 mmol/L (98-107); GLUCOSE 119 mg/dL (74-106); POTASSIUM - SERUM 3.3 mmol/L (3.5-5.1); PROTEIN - SERUM 6.7 g/dL (6.4-8.2); SODIUM 142 mmol/L (136-145); UREA NITROGEN 110 mg/dL (7-18); eGFR NON AFRICAN AMERICAN 16 mL/min (90-120)
[2018-04-10 07:59] LABS: CKMB 2.4 U/L (0.0-3.6); CREATINE KINASE 56 UL (21-215); MAGNESIUM - SERUM 1.6 mg/dL (1.8-2.4); PRO BNP 106454 pg/mL (0-450)
[2018-04-10 08:00] LABS: TROPONIN-I 0.135 ng/mL (0.000-0.060)
[2018-04-10 10:40] VITALS: BP 136/85
== END 2018-04-10 10:40 | disposition home or self-care (01) ==
LOC: D.ER 06:33
PROVIDERS: Emergency Medicine; Family Medicine
DX: E72.20 Disorder of urea cycle metabolism, unspecified (principal); E87.6 Hypokalemia; N39.0 Urinary tract infection, site not specified; W18.30XA Fall on same level, unspecified, initial encounter; Y93.89 Activity, other specified; Y92.019 Unspecified place in single-family (private) house as the place of occurrence of the external cause; Z86.73 Personal history of transient ischemic attack (TIA), and cerebral infarction without residual deficits; I11.0 Hypertensive heart disease with heart failure; I50.9 Heart failure, unspecified; J44.9 Chronic obstructive pulmonary disease, unspecified

== ENCOUNTER 2018-04-16 10:46 | Emergency (ER) | payer MEDICARE ==
[2018-04-16 10:48] VITALS: Ht 154.9 cm
[2018-04-16 11:30] LABS: BASOPHILS 0.5 % (0-2); EOSINOPHILS 0.2 % (0-7); HEMATOCRIT 38.7 % (36.0-48.0); HEMOGLOBIN 12.2 g/dL (12-16); LYMPHOCYTES 10.1 % (15-50); MCH 28.8 pg (26.0-34.0); MCHC 31.5 g/dL (31.0-37.0); MCV 91.5 fL (80.0-100.0); MEAN PLATELET VOLUME 9.4 fL (7.4-10.4); MONOCYTES 5.7 % (2-11); NEUTROPHILS 83.5 % (40-80); PLATELET COUNT 191 10x3/uL (130-400); RBC 4.23 10x6/uL (4.00-5.40); RDW 16.8 % (11.5-14.5); WBC 4.1 10x3/uL (4.8-10.8)
[2018-04-16 11:35] LABS: INR 1.37 (0.85-1.17); PROTIME 16.3 SECONDS (11.6-15.0)
[2018-04-16 11:36] LABS: APTT 43.1 SECONDS (22.8-39.4)
[2018-04-16 11:41] LABS: ALBUMIN 2.9 g/dL (3.4-5.0); ALKALINE PHOSPHATASE 53 U/L (46-116); ALT (SGPT) 15 U/L (10-68); BILIRUBIN - TOTAL 0.73 mg/dL (0.2-1.3); CALC OSMOLALITY 319 mosm/kg (275-300); CALCIUM 8.3 mg/dL (8.5-10.1); CARBON DIOXIDE 26.8 mmol/L (21.0-32.0); CHLORIDE - SERUM 107 mmol/L (98-107); CREATININE - SERUM 2.6 mg/dL (0.6-1.3); GLUCOSE 154 mg/dL (74-106); POTASSIUM - SERUM 3.7 mmol/L (3.5-5.1); PROTEIN - SERUM 6.6 g/dL (6.4-8.2); SODIUM 145 mmol/L (136-145); UREA NITROGEN 92 mg/dL (7-18); eGFR NON AFRICAN AMERICAN 19 mL/min (90-120)
[2018-04-16 11:59] LABS: CKMB 2.4 U/L (0.0-3.6); CREATINE KINASE 42 UL (21-215)
[2018-04-16 12:06] LABS: TROPONIN-I 0.122 ng/mL (0.000-0.060)
[2018-04-16 12:19] LABS: PRO BNP 59013 pg/mL (0-450)
[2018-04-16 14:30] VITALS: BP 152/76
== END 2018-04-16 14:32 | disposition home or self-care (01) ==
LOC: D.ER 10:46
PROVIDERS: Family Medicine
DX: I11.0 Hypertensive heart disease with heart failure (principal); I50.9 Heart failure, unspecified; N28.9 Disorder of kidney and ureter, unspecified; Z86.73 Personal history of transient ischemic attack (TIA), and cerebral infarction without residual deficits; J44.9 Chronic obstructive pulmonary disease, unspecified; K21.9 Gastro-esophageal reflux disease without esophagitis